=== PATIENT | female | born 1990 | race Caucasian/White ===

== ENCOUNTER 2020-03-12 06:53 | Outpatient (NON) | payer OTHER, SELFPAY ==
[2020-03-12 21:01] LABS: SARS-CoV-2 RNA PCR Negative
== END 2020-03-12 06:54 ==
PROVIDERS: PCP Family Medicine; Visit Provider Family Medicine
DX: R09.89 Other specified symptoms and signs involving the circulatory and respiratory systems (principal); Z20.828 Contact with and (suspected) exposure to other viral communicable diseases
CPT/HCPCS: 87635; C9803; U0003

== ENCOUNTER 2022-06-01 08:18 | Outpatient (RCR) | payer OTHER, SELFPAY ==
[2022-05-30 18:28] LABS: Beta HCG Quantitative 33.54 mIU/ML
[2022-05-31] MEDS: RHO(D) IMMUNE GLOBULIN 300 MCG/2 ML SYRINGE IM (12:38)
== END 2022-08-28 23:59 | disposition home or self-care (01) ==
LOC: ANHLAB 08:18
PROVIDERS: PCP Family Medicine; Visit Provider Advanced Practice Midwife
DX: O20.0 Threatened abortion (principal); Z29.13 Encounter for prophylactic Rho(D) immune globulin; O36.0130 Maternal care for anti-D [Rh] antibodies, third trimester, not applicable or unspecified; Z3A.00 Weeks of gestation of pregnancy not specified
CPT/HCPCS: 36415; 84702; 85461; 86850; 86900; 86901; 90384; 96372; J2790

== ENCOUNTER 2022-08-02 15:17 | Outpatient (CLI) | payer OTHER, SELFPAY ==
[2022-08-02 16:15] LABS: Beta HCG Quantitative 5.58 mIU/ML
[2022-08-02 17:07] LABS: Hemoglobin A1C 5.7 % (<5.7)
[2022-08-05 04:28] LABS: Progesterone 0.5 ng/mL (***)
== END 2022-08-02 15:18 | disposition home or self-care (01) ==
PROVIDERS: PCP Family Medicine; Visit Provider Advanced Practice Midwife
DX: Z32.01 Encounter for pregnancy test, result positive (principal)
CPT/HCPCS: 36415; 83036; 84144; 84702

== ENCOUNTER 2022-08-04 12:16 | Outpatient (CLI) | payer OTHER, SELFPAY ==
[2022-08-04 13:34] LABS: Beta HCG Quantitative < 2.39 mIU/ML
== END 2022-08-04 12:17 | disposition home or self-care (01) ==
PROVIDERS: PCP Nurse Practitioner Family; Visit Provider Advanced Practice Midwife
DX: O02.1 Missed abortion (principal)
CPT/HCPCS: 36415; 84702

== ENCOUNTER 2023-05-25 17:40 | Outpatient (CLI) | payer OTHER, SELFPAY ==
[2023-05-25 18:29] LABS: Beta HCG Quantitative 49.24 mIU/ML
== END 2023-05-25 17:41 | disposition home or self-care (01) ==
LOC: ANHLAB 17:43
PROVIDERS: PCP Nurse Practitioner Family; Visit Provider Advanced Practice Midwife
DX: Z32.01 Encounter for pregnancy test, result positive (principal)
CPT/HCPCS: 36415; 84702

== ENCOUNTER 2023-05-27 12:18 | Outpatient (CLI) | payer OTHER, SELFPAY ==
[2023-05-27 13:22] LABS: Beta HCG Quantitative 137.08 mIU/ML
== END 2023-05-27 12:19 | disposition home or self-care (01) ==
LOC: ANHLAB 12:19
PROVIDERS: PCP Nurse Practitioner Family; Visit Provider Advanced Practice Midwife
DX: Z32.01 Encounter for pregnancy test, result positive (principal)
CPT/HCPCS: 36415; 84702

== ENCOUNTER 2023-05-29 11:14 | Outpatient (RCR) | payer OTHER, SELFPAY ==
[2023-05-29] MEDS: RHO(D) IMMUNE GLOBULIN 300 MCG/2 ML SYRINGE IM (14:51)
== END 2023-08-27 23:59 | disposition home or self-care (01) ==
LOC: ANHLAB 11:14
PROVIDERS: PCP Nurse Practitioner Family; Visit Provider Advanced Practice Midwife
DX: Z29.13 Encounter for prophylactic Rho(D) immune globulin (principal); O20.0 Threatened abortion; O36.0190 Maternal care for anti-D [Rh] antibodies, unspecified trimester, not applicable or unspecified; Z3A.00 Weeks of gestation of pregnancy not specified
CPT/HCPCS: 36415; 84702; 85461; 86850; 86900; 86901; 90384; 96372; J2790

== ENCOUNTER 2023-12-07 12:53 | Outpatient (CLI) | payer OTHER, SELFPAY ==
[2023-12-07 13:25] VITALS: BP 140/82; PULSE 96
[2023-12-07 13:30] VITALS: BP 138/80; PULSE 92
[2023-12-07 13:37] LABS: Basophils Percent Auto 0.2 % (0.2-1.2); Eosinophils Percent Auto 0.5 % (0-4.4); Hematocrit 33.5 % (37.0-47.0); Hemoglobin 10.8 g/dL (12.0-15.0); Immature Granulocyte Absolute 0.02 K/mm3 (0.00-0.031); Immature Granulocyte Percent A 0.3 % (0-0.5); Lymphocytes Percent Auto 18.4 % (18.3-44.2); Mean Corpuscular HGB Conc 32.2 g/dl (32-36); Mean Corpuscular Hemoglobin 26.9 pg (26-34); Mean Corpuscular Volume 83.3 fl (80-100); Mean Platelet Volume 8.5 fl (7.4-10.4); Monocytes Absolute Auto 0.3 K/mm3 (0.1-0.6); Monocytes Percent Auto 5.7 % (2.6-8.5); Neutrophils Absolute Auto 4.5 K/mm3 (1.3-6.7); Neutrophils Percent Auto 74.9 % (45.5-73.1); Platelet Count Result 297 k/mm3 (150-375); Red Blood Count 4.02 M/mm3 (4.2-5.4); Red Cell Distribution Width 14.2 % (11.5-14.5)
[2023-12-07 13:39] LABS: Add Urine Microscopic? NO; Appearance Urine Clear (Clear); Bilirubin Urine Negative (Negative); Blood Urine Negative (Negative); Color Urine Yellow (Yellow); Glucose Urine UA Negative (Negative); Ketones Urine 3+ mg/dL (Negative); Leukocyte Esterase Ur Negative LEU/UL (Negative); Nitrate Urine Negative (Negative); Protein Urine Negative (Negative); Specific Grav Ur 1.023 (1.001-1.035); Urobilinogen Urine 0.2 mg/dL (<2.0); pH Urine 6.5 (5.0-9.0)
[2023-12-07 13:41] VITALS: TEMP 36.7
[2023-12-07 13:45] VITALS: BP 135/77; PULSE 90
[2023-12-07 13:46] LABS: Creatinine Urine 68.6 mg/dL; Total Protein Urine Random 7 mg/dL
[2023-12-07 13:47] LABS: Alanine Aminotransferase 21 U/L (6-35); Albumin Level 3.6 g/dL (3.5-5.1); Alkaline Phosphatase 102 U/L (38-126); Anion Gap 8 mmol/L (4-12); Aspartate Amino Transferase 25 U/L (14-36); Bilirubin,Total 0.2 mg/dL (0.2-1.3); Blood Urea Nitrogen 12 mg/dL (7-17); Calcium 8.7 mg/dL (8.4-10.2); Carbon Dioxide 26 mmol/L (22-30); Chloride 100 mmol/L (98-107); Estimated Glomerular Filt Rate > 60; Glucose 92 mg/dL (65-110); Potassium 3.2 mmol/L (3.4-5.0); Sodium 134 mmol/L (137-145); Uric Acid 3.2 mg/dL (2.5-7.5)
[2023-12-07 14:00] VITALS: BP 130/77; PULSE 89
== END 2023-12-07 14:15 | disposition home or self-care (01) ==
LOC: ANHOBOP 12:56 → ANHOBPP 12:57
PROVIDERS: PCP Nurse Practitioner Family; Visit Provider Obstetrics & Gynecology
DX: O13.9 Gestational [pregnancy-induced] hypertension without significant proteinuria, unspecified trimester (principal); Z3A.00 Weeks of gestation of pregnancy not specified
CPT/HCPCS: 36415; 59025; 80053; 81003; 82570; 84156; 84550; 85025; 99199

== ENCOUNTER 2023-12-28 08:29 | Outpatient (CLI) | payer OTHER, SELFPAY ==
--- NOTE | 2023-12-28 09:10 | PC.NURSE ---
Dr. Cruz informed of this 33 wk gestation pt's arrival with c/o leakage of fluid this morning; ROM plus was negative; NST reactive. OK to discharge to home.
[2023-12-28 09:15] VITALS: BP 124/81; PULSE 95
[2023-12-28 09:43] LABS: OBXCEM ROM Plus Negative
== END 2023-12-28 09:19 | disposition home or self-care (01) ==
LOC: ANHOBOP 09:12 → ANHOBPP 09:13
PROVIDERS: Obstetrics & Gynecology; PCP Nurse Practitioner Family; Visit Provider Obstetrics & Gynecology
DX: Z34.90 Encounter for supervision of normal pregnancy, unspecified, unspecified trimester (principal); Z3A.00 Weeks of gestation of pregnancy not specified
CPT/HCPCS: 59025; 84112; 99199

== ENCOUNTER 2024-01-11 15:46 | Inpatient (IN) | payer OTHER, SELFPAY ==
[2024-01-11] VITALS (22 sets, daily range): BP systolic 125–139; BP diastolic 82–95; PULSE 79–105; TEMP 36.2–36.5; BMI 33.5
[2024-01-11 16:40] LABS: Basophils Percent Auto 0.2 % (0.2-1.2); Eosinophils Percent Auto 0.5 % (0-4.4); Hematocrit 36.3 % (37.0-47.0); Immature Granulocyte Absolute 0.01 K/mm3 (0.00-0.031); Immature Granulocyte Percent A 0.2 % (0-0.5); Lymphocytes Absolute Auto 1.09 K/mm3 (0.9-3.2); Lymphocytes Percent Auto 18.1 % (18.3-44.2); Mean Corpuscular HGB Conc 33.1 g/dl (32-36); Mean Corpuscular Hemoglobin 27.3 pg (26-34); Mean Corpuscular Volume 82.7 fl (80-100); Monocytes Absolute Auto 0.4 K/mm3 (0.1-0.6); Monocytes Percent Auto 7.1 % (2.6-8.5); Neutrophils Absolute Auto 4.5 K/mm3 (1.3-6.7); Neutrophils Percent Auto 73.9 % (45.5-73.1); Platelet Count Result 277 k/mm3 (150-375); Red Blood Count 4.39 M/mm3 (4.2-5.4); Red Cell Distribution Width 15.6 % (11.5-14.5)
[2024-01-11] MEDS: AMPICILLIN 2 GM/NS 100 ML 2 GM/100 ML BAG IVPB (16:49)
[2024-01-11] MEDS: LACTATED RINGERS 1,000 ML 125 ML IV CONT (16:50)
[2024-01-11] MEDS: miSOPROStol 25 MCG TABLET 50 MCG BUCCAL ×2 (16:54→20:50)
--- NOTE | 2024-01-11 16:58 | LDADM ---
This patient, Joe Goodwin, was admitted to Labor/Delivery/Recovery 107 on 01/11/24 at 15:46. Plans for labor, pain management and were discussed with patient. Patient/family oriented to hospital policies and general routines including ID bracelet, bed and alarms, visiting hours, pain management, procedures, bathroom and other care routines, personal items, smoking policy, room service/diet and guest tray routines, security routines, and visiting hours. Patient/Family are encouraged to report perceived risks to care and to ask questions if they do not understand what they are told or what they should do. See OBIX for further documentation.
[2024-01-11 17:14] LABS: Alanine Aminotransferase 23 U/L (6-35); Albumin Level 4.1 g/dL (3.5-5.1); Alkaline Phosphatase 113 U/L (38-126); Anion Gap 8 mmol/L (4-12); Aspartate Amino Transferase 27 U/L (14-36); Bilirubin,Total 0.3 mg/dL (0.2-1.3); Blood Urea Nitrogen 16 mg/dL (7-17); Calcium 9.4 mg/dL (8.4-10.2); Carbon Dioxide 24 mmol/L (22-30); Chloride 98 mmol/L (98-107); Estimated CRCL calculation 253 ml/min; Estimated Glomerular Filt Rate > 60; Glucose 96 mg/dL (65-110); Sodium 130 mmol/L (137-145)
[2024-01-11 17:19] LABS: Potassium 3.6 mmol/L (3.4-5.0)
[2024-01-11 17:29] LABS: Rapid Plasma Reagin Non-Reactive (NonReactive)
[2024-01-11 18:27] LABS: HIV 1/2 Ab P24 Ag Result Negative (Negative)
[2024-01-11] MEDS: AMPICILLIN 1 GM/NS 50 ML 1 GM/50 ML BAG IVPB (20:50)
[2024-01-11 21:08] LABS: Glucose Point of Care 109 mg/dl (65-105)
[2024-01-12] VITALS (129 sets, daily range): BP systolic 93–150; BP diastolic 56–93; PULSE 69–107; RESP 16–18; TEMP 36.2–37.1; O2SAT 95–100
[2024-01-12] MEDS: miSOPROStol 25 MCG TABLET 50 MCG BUCCAL ×2 (00:45→04:44)
[2024-01-12] MEDS: AMPICILLIN 1 GM/NS 50 ML 1 GM/50 ML BAG IVPB ×3 (00:45→08:59)
[2024-01-12 00:48] LABS: Glucose Point of Care 76 mg/dl (65-105)
[2024-01-12 04:50] LABS: Glucose Point of Care 81 mg/dl (65-105)
--- NOTE | 2024-01-12 07:33 | PM.IMHP ---
H&P: HPI History of Present Illness Date/Time: 01/12/24 07:34 Chief Complaint: chronic HTN, medical induction of labor Narrative: Patient is a 33 year old at 37w1d who presents for medical induction of labor indicated for chronic HTN on procardia XL. Her blood pressures have been well controlled. testing has been reactive and reassuring. She denies headaches, vision changes, chest pain, dyspnea, RUQ pain or epigastric pain. Her has also been complicated by GDMA1, with good glycemic control. She reports good movement. No contractions, LOF, VB. Review of Systems Review of Systems: All systems reviewed & are unremarkable except as noted in HPI and below PMFSH Family History Family History Mother Family history of thalassemia Family history of migraine headaches Father Family history of migraine headaches Social History Social History Smoking status: Never smoker Second hand tobacco smoke exposure: No Alcohol intake: never Substance use: never Do You Feel Safe in your Home?: Yes Lack of Transportation: No Lack of Food: Never True Current Housing: I Have Housing Concerned About Future Housing: No Difficulty Paying Gas/Electric Bills: No Difficulty Paying for Meds: No Currently Unemployed: No Education: Trade/Vocational Certificate Difficulty w/ Childcare or Family Care: No Spiritual care concerns: No Meds Home Medications and Allergies Home Medications Medication Instructions Recorded Confirmed Type escitalopram oxalate 20 mg tablet 20 mg PO DAILY 06/26/19 01/11/24 History (Lexapro) aspirin 81 mg capsule 81 mg PO DAILY 12/07/23 01/11/24 History ferrous sulfate 27 mg iron tablet 27 mg PO DAILY 12/07/23 01/11/24 History nifedipine 30 mg tablet,extended 30 mg PO DAILY 12/07/23 01/11/24 History release 24 hr prenat.vits,malaika,[id number] 1 tablet PO DAILY 01/06/24 01/11/24 History doxylamine succinate 25 mg tablet 25 mg PO HS PRN Sleep 01/11/24 01/11/24 History (Unisom (doxylamine)) Allergies Allergy/AdvReac Type Severity Reaction Status Date / Time oseltamivir [From Tamiflu] Allergy Mild Vomiting Verified 01/06/24 13:35 sertraline [From Zoloft] Allergy Mild Irritable Verified 01/06/24 13:35 Vital Signs Vital Signs - 24 hr 01/11/24 16:46 01/11/24 17:01 01/11/24 17:16 Temperature Pulse Rate 102 H 93 92 Blood Pressure 137/90 135/89 134/87 01/11/24 17:00 01/11/24 17:31 01/11/24 17:46 Temperature 97.2 F L Pulse Rate 92 85 Blood Pressure 135/94 H 136/95 H 01/11/24 18:01 01/11/24 19:28 01/11/24 19:31 Temperature Pulse Rate 86 90 93 Blood Pressure 137/94 H 134/86 135/84 01/11/24 19:46 01/11/24 20:01 01/11/24 20:16 Temperature Pulse Rate 93 105 H 100 Blood Pressure 132/85 135/85 134/90 01/11/24 20:31 01/11/24 21:01 01/11/24 21:16 Temperature Pulse Rate 101 H 94 103 H Blood Pressure 133/87 139/86 125/88 01/11/24 21:00 01/11/24 21:31 01/11/24 21:46 Temperature 97.7 F Pulse Rate 92 95 Blood Pressure 136/86 138/87 01/11/24 22:06 01/11/24 22:31 01/11/24 23:01 Temperature Pulse Rate 94 85 83 Blood Pressure 132/85 139/91 H 137/82 01/11/24 23:31 01/12/24 00:01 01/12/24 00:31 Temperature Pulse Rate 79 77 76 Blood Pressure 127/82 134/89 131/87 01/12/24 01:01 01/12/24 01:31 01/12/24 01:00 Temperature 97.4 F L Pulse Rate 91 80 Blood Pressure 140/90 139/88 01/12/24 02:01 01/12/24 02:31 01/12/24 03:01 Temperature Pulse Rate 81 88 89 Blood Pressure 135/82 150/91 H 126/68 01/12/24 03:31 01/12/24 04:01 01/12/24 04:31 Temperature Pulse Rate 79 86 85 Blood Pressure 116/65 115/65 123/69 01/12/24 04:45 01/12/24 05:43 01/12/24 06:01 Temperature 97.1 F L Pulse Rate 77 76 Blood Pressure 123/78 123/80 01/12/24 06:31 01/12/24 07:01 Temp
[2024-01-12] MEDS: NIFEdipine 30 MG TAB.ER.24 PO (09:00)
[2024-01-12] MEDS: ESCITALOPRAM OXALATE 10 MG TABLET 20 MG PO (09:00)
[2024-01-12 09:10] LABS: Glucose Point of Care 102 mg/dl (65-105)
[2024-01-12] MEDS: LACTATED RINGERS 1,000 ML 125 ML IV CONT (09:24)
[2024-01-12] MEDS: OXYTOCIN 30 UNITS/NS 500 ML 30 UNITS/500 ML BAG IV CONT (09:35)
--- NOTE | 2024-01-12 11:29 | WPDANESEPPF ---
Anes - Initial Pre Proc Eval Date/Time: 01/12/24 11:29 Surgeon: Lobo Dunham MD Pre Op Diagnosis: Induction of Labor Patient Data Age: 33 Gender: F Height: 1.7 m Weight: 97.2 kg Last Vital Signs Temp 36.8 C 01/12/24 09:30 Pulse 74 01/12/24 11:16 BP 128/76 01/12/24 11:16 Pulse Ox 99 01/12/24 11:27 Allergies Allergy/AdvReac Type Severity Reaction Status Date / Time oseltamivir [From Tamiflu] Allergy Mild Vomiting Verified 01/06/24 13:35 sertraline [From Zoloft] Allergy Mild Irritable Verified 01/06/24 13:35 Home Medications Medication Instructions Recorded Confirmed Type escitalopram oxalate 20 mg tablet 20 mg PO DAILY 06/26/19 01/11/24 History (Lexapro) aspirin 81 mg capsule 81 mg PO DAILY 12/07/23 01/11/24 History ferrous sulfate 27 mg iron tablet 27 mg PO DAILY 12/07/23 01/11/24 History nifedipine 30 mg tablet,extended 30 mg PO DAILY 12/07/23 01/11/24 History release 24 hr prenat.vits,malaika,djb-[id number]-agwjy 1 tablet PO DAILY 01/06/24 01/11/24 History doxylamine succinate 25 mg tablet 25 mg PO HS PRN Sleep 01/11/24 01/11/24 History (Unisom (doxylamine)) Laboratory Tests 01/11/24 01/11/24 01/12/24 16:31 21:06 00:43 WBC 6.0 K/mm3 (4.5-10.0) RBC 4.39 M/mm3 (4.2-5.4) Hgb 12.0 g/dL (12.0-15.0) Hct 36.3 L % (37.0-47.0) MCV 82.7 fl (80-100) MCH 27.3 pg (26-34) MCHC 33.1 g/dl (32-36) RDW 15.6 H % (11.5-14.5) Plt Count 277 k/mm3 (150-375) MPV 9.0 fl (7.4-10.4) Immature Gran % (Auto) 0.2 % (0-0.5) Neut % (Auto) 73.9 H % (45.5-73.1) Lymph % (Auto) 18.1 L % (18.3-44.2) [place] % (Auto) 7.1 % (2.6-8.5) Eos % (Auto) 0.5 % (0-4.4) Baso % (Auto) 0.2 % (0.2-1.2) Lymph # (Auto) 1.09 K/mm3 (0.9-3.2) [place] # (Auto) 0.4 K/mm3 (0.1-0.6) Eos # (Auto) 0.0 K/mm3 (0-0.3) Baso # (Auto) 0.0 K/mm3 (0.0-0.1) Abs Immat Gran (auto) 0.01 K/mm3 (0.00-0.031) Absolute Neuts (auto) 4.5 K/mm3 (1.3-6.7) Absolute Nucleated RBC 0.000 K/mm3 (0.0-0.012) Nucleated RBC % 0.0 % (0.0-0.2) Sodium 130 L mmol/L (137-145) Potassium 3.6 mmol/L (3.4-5.0) Chloride 98 mmol/L (98-107) Carbon Dioxide 24 mmol/L (22-30) Anion Gap 8 mmol/L (4-12) BUN 16 mg/dL (7-17) Creatinine 0.30 L mg/dL (0.7-1.0) Estim Creat Clear Calc 253 ml/min Estimated GFR > 60 (59 - ) Glucose 96 mg/dL (65-110) POC Capillary Glucose 109 H mg/dl 76 mg/dl (65-105) (65-105) Calcium 9.4 mg/dL (8.4-10.2) Total Bilirubin 0.3 mg/dL (0.2-1.3) AST 27 U/L (14-36) ALT 23 U/L (6-35) Alkaline Phosphatase 113 U/L (38-126) Total Protein 8.0 g/dL (6.3-8.2) Albumin 4.1 g/dL (3.5-5.1) RPR Non-reactive (NonReactive) HIV 1&2 Ab/P24 Ag 4thGn Negative (Negative) Blood Type O Negative Antibody Screen Negative 01/12/24 01/12/24 04:42 09:06 WBC RBC Hgb Hct MCV MCH MCHC RDW Plt Count MPV Immature Gran % (Auto) Neut % (Auto) Lymph % (Auto) [place] % (Auto) Eos % (Auto) Baso % (Auto) Lymph # (Auto) [place] # (Auto) Eos # (Auto) Baso # (Auto) Abs Immat Gran (auto) Absolute Neuts (auto) Absolute Nucleated RBC Nucleated RBC % Sodium Potassium Chloride Carbon Dioxide Anion Gap BUN Creatinine Estim Creat Clear Calc Estimated GFR Glucose
[2024-01-12 12:17] LABS: Glucose Point of Care 72 mg/dl (65-105)
--- NOTE | 2024-01-12 13:16 | PM.OBPRVD ---
OB - Vaginal Delivery Note Procedure Delivery date: 01/12/24 Events: Chronic Hypertension and Gestational Diabetes Induction method: Per Misoprostol Protocol Delivery augmentation: Rupture of Membranes and Pitocin Delivery monitor: External FHT and Internal Uterine Route of delivery: Episiotomy description: None Laceration Description: Periurethral and Perineal - 2nd Degree Delivery repair: vicryl Specimen: No Quantitative Blood Loss (ml): 200 Anesthesia type: Epidural Disposition: Floor Complications: No immediate complications Narrative: See H&P and notes for details on patient's admission and labor. She progressed to complete cervical dilation and at the appropriate time began pushing. With adequate expulsive efforts by the mother, the baby's head was delivered without difficulty. Nuchal cord was present x1 and was easily reduced. The baby's right shoulder was anterior and delivered under the pubic symphysis without difficulty. The posterior shoulder and the rest of the baby delivered without difficulty. The umbilical cord was doubly clamped and cut after 30 seconds of delayed cord clamping. Care of the was then assumed by the nursing staff. Baby Date of : 01/12/24 Gestational Age by Date: 37 gender: Male Weight (pounds): 6 Weight (ounces): 6 presentation: vertex position: Left Occiput Anterior Placenta delivery description: Expressed Cord Vessel Description: 3 Vessels, Nuchal Cord, Reduced and Delayed Cord Clamping score one minute: 6 score five minutes: 8
[2024-01-12] MEDS: OXYTOCIN 30 UNITS/NS 500 ML 30 UNITS/500 ML BAG 125 UNITS IV CONT (13:25)
[2024-01-12] MEDS: WITCH HAZEL 40 PADS 1 PAD TOPICAL (15:54)
[2024-01-12] MEDS: BENZOCAINE 20% AER SPR (*SP) 56 GM CAN 1 SPRAY TOPICAL (15:54)
[2024-01-12] MEDS: IBUPROFEN 600 MG TABLET PO (17:08)
--- NOTE | 2024-01-12 17:40 | OBPPTRN ---
Patient transferred to post room #291 via (wheelchair ). Support person present. Oriented to unit, room, information board, rooming in, admission packet and security measures. Patient verbalizes understanding.
--- NOTE | 2024-01-12 19:07 | PC.NURSE ---
0. Introductions were made, then consulted with patient to assess needs related to . Mother led the conversation with her?plans to feed?her infant and the?experience so far. Encouraged understanding of the benefits of skin to skin (demonstrating unwrapping infant and placing upright on her chest), stimulating with massage touch, changing positions to encourage wakefulness, how to watch for early feeding cues, responsive feeding, feeding on demand (aiming for 8-12 times in 24 hours, about every 2-3 hours), milk production, building/maintaining a milk supply, duration of feeding, signs of adequate intake/output and how to record on the feeding sheet. Mother works well with her with encouragement and education. Reviewed positioning and ear, shoulder, hip alignment, supporting the breast to facilitate a deep latch, asymmetrical latch (off-center), leading with the chin with a big, open, wide gape and body close to mother. Many attempts made to latch to breast in football and cross cradle hold. Moms nipples are a little flat and infant has a hard time maintaining a latch. Nipple shield provided to mother due to flat nipples. Reviewed good handwashing, cleaning the nipple shield and the appropriate way to apply and use as a tool. Discussed with mom the nipple shield precautions, possible complications associated with the risks and benefits. Reviewed practicing with a nipple shield, then without and how to protect the milk supply and production. Mom and baby guide referred to as a resource for outpatient services, community resources and when to call a provider. Mom voiced understanding of the importance of hand expression, nipple stimulation and initiating a pumping schedule if continues to nurse with the shield. Infant latched optimally to the left breast in football position with the nipple shield. Education given to the mother of how to visualize the suckling (with good rocking jaw motion), swallows (dropping of the lower jaw) and how to listen for drinking at the breast (the ka sound). was able/unable to maintain latch without pain to mother protecting the nipple with optimal positioning and latching. Reviewed comfort measures of healing with a warm, wet washcloth to rinse breast, then leave open to air-dry, good handwashing when or touching the breast/nipples to prevent infection. Mother voiced understanding of skin to skin, stimulating with massage touch, responsive feedings, hand expressed colostrum, talking to to encourage if it has been 2 -2.5 hours since the start of the last , to call if does not latch, or if there is discomfort with . Resources used for education were facilitated with the visual educational handouts & mom and baby guide. Inpatient resources provided with feeding sheet,& name written on the communication board. Parents voiced understanding of information, demonstrated learning and will call if there is a request for assistance. Reported to the Primary RN.
[2024-01-13 00:17] VITALS: BP 122/79
[2024-01-13 03:30] VITALS: BP 126/83; PULSE 87; RESP 12; TEMP 36.9; O2SAT 100
--- NOTE | 2024-01-13 04:45 | PM.OBPNVD ---
OB - PN: Subj Subjective Date/time seen: 01/13/24 04:45 Patient comments: no complaints, pain well controlled and tolerating diet OB - PN: Obj Data Labs 01/11/24 16:31 01/11/24 16:31 Labs: Laboratory Results - last 24 hr 01/12/24 01/12/24 01/12/24 04:42 09:06 12:15 POC Capillary Glucose 81 102 72 OB - PN A/P Plan day: 2 Plan: routine care and discharge home Time Spent With Patient Time: Total time spent is greater than 50% in coordination of care (as documented) at patient's floor/unit and/or counseling patient: Exam Const: General: comfortable and no acute distress Resp: Effort & Inspection: normal respiratory effort Auscultation: no rales, no rhonchi and no wheezes Cardio: Rate: regular rate Heart sounds: no click, no murmurs and no rubs GI: GI Palp: Yes Soft to palpation and No Tenderness to palpation present (GI) Auscultation: normal bowel sounds Extrem: General: normal to inspection, no pedal edema and no calf tenderness
[2024-01-13 05:15] LABS: Hematocrit 33.2 % (37.0-47.0); Hemoglobin 10.9 g/dL (12.0-15.0)
[2024-01-13 06:45] VITALS: BP 120/77; PULSE 85; RESP 16; TEMP 36.9; O2SAT 100
[2024-01-13] MEDS: ACETAMINOPHEN 325 MG TABLET 650 MG PO ×2 (06:51→16:40)
--- NOTE | 2024-01-13 07:38 | WPDANLDPN2 ---
Anes-Prog Note L&D Date/Time: 01/13/24 07:38 Comfortable throughout: labor and delivery Neuraxial method: epidural Epidural/Spinal procedure site: clean & non-tender Neuro status: Neuro function grossly intact. Cardiovascular status: normal Respiratory status: normal Airway patency: baseline Mental status: baseline Post-Op hydration status: normal Vital Signs: Last Vital Signs Temp 36.9 C 01/13/24 03:30 Pulse 87 01/13/24 03:30 Resp 12 01/13/24 03:30 BP 126/83 01/13/24 03:30 Pulse Ox 100 01/13/24 03:30 O2 Del Method Room Air 01/12/24 16:30 Pain score (VAS): 0/10 I/O: Intake & Output 01/12/24 01/12/24 01/13/24 15:59 23:59 07:59 Intake Total 550 Output Total 200 Balance 350 Post-procedural complaints: none Patient feedback: Patient satisfied with anesthetic care.
[2024-01-13] MEDS: NIFEdipine 30 MG TAB.ER.24 PO (08:46)
[2024-01-13] MEDS: DOCUSATE SODIUM 100 MG CAPSULE PO ×2 (08:46→16:40)
[2024-01-13] MEDS: MULTIVIT/MIN/PREN/FOL AC/IRON TABLET 1 TAB PO (08:47)
[2024-01-13] MEDS: ESCITALOPRAM OXALATE 10 MG TABLET 20 MG PO (08:47)
--- NOTE | 2024-01-13 10:10 | PC.NURSE ---
Consulted with patient to assess needs related to . Discussed with mother her successes, concerns and any questions she has. We reviewed working with the , supporting breast, protecting her nipples with an optimal deep latch, good positioning. Encouraged understanding the benefits of skin to skin, responding to feeding cues, frequencies of feeding 8-12 times in 24 hours (approximately 2-3 hours), duration of feedings, milk production, intake/output feeding sheet and signs of adequate intake encouraging swallowing at the breast. Reviewed positioning and alignment, supporting breast, off-centered (asymmetrical latch) and leading with the chin with big, open, wide gape. Infant latched optimally to the [right] breast in [football] position with the nipple shield. Education given to the mother of how to visualize the suckling (with good rocking jaw motion) swallows (dropping of the lower jaw) and how to listen for drinking at the breast (the ka sound). The infant was [able] to maintain latch without discomfort to mother. Infant had several swallows while he was feeding and did need some stimulation to stay awake and suckling. Drops of colostrum noted inside the shield after feeding. released the breast and was sleeping with relaxed hands. Mother is deciding whether or not she wants to supplement with formula after the feeding, since there is no doctor order it is up to her. She did choose to bottle feed through the night. We discussed sleepy in the first 24 hours, and small drops of colostrum until her milk comes in. Nipple care reviewed with optimal latch, good positioning. Mom has her Spectra pump in the room and she is encouraged to pump any time that baby does not breastfeed. She will call out for assistance using the pump when she is ready. Resources used to facilitate learning were used from the [mom and baby guide] and name/number written on whiteboard. Mother voiced understanding of the education shared, to call for assistance if the does not latch or if there is discomfort with . Reported to the Primary RN.
[2024-01-13 11:10] VITALS: BP 125/77
[2024-01-13] MEDS: RHO(D) IMMUNE GLOBULIN 300 MCG/2 ML SYRINGE IM (11:36)
[2024-01-13 16:35] VITALS: BP 126/81
[2024-01-13 19:00] VITALS: BP 128/83; PULSE 92; RESP 18; TEMP 36.9
[2024-01-14 00:10] VITALS: BP 125/85; PULSE 88
[2024-01-14] MEDS: IBUPROFEN 600 MG TABLET PO (03:35)
[2024-01-14 04:00] VITALS: BP 131/82; PULSE 93
--- NOTE | 2024-01-14 07:53 | PM.OBPNVD ---
OB - PN: Subj Subjective Date/time seen: 01/14/24 07:53 Patient comments: no complaints, pain well controlled and tolerating diet OB - PN: Obj Data Labs 01/13/24 03:42 01/11/24 16:31 OB - PN A/P Plan day: 2 Plan: routine care and discharge home Time Spent With Patient Time: Total time spent is greater than 50% in coordination of care (as documented) at patient's floor/unit and/or counseling patient: Exam Const: General: comfortable and no acute distress Resp: Effort & Inspection: normal respiratory effort Auscultation: no rales, no rhonchi and no wheezes Cardio: Rate: regular rate Heart sounds: no click, no murmurs and no rubs GI: GI Palp: Yes Soft to palpation and No Tenderness to palpation present (GI) Auscultation: normal bowel sounds Extrem: General: normal to inspection, no pedal edema and no calf tenderness
--- NOTE | 2024-01-14 07:54 | PM.OBDSVD ---
DS: Admitting Diagnosis Discharge Date January 14, 2024 Admitting Diagnosis term DS: Discharge Diagnosis Discharge Diagnosis (1) Post term , delivered: Code(s): O48.0 - Post-term Status: Acute OB - DS: Summary OB Procedures : None OB Procedures Intrapartum: Spontaneous Vag Delivery OB Procedures: : None Peripartum Data Laceration Description: Periurethral and Perineal - 2nd Degree Episiotomy description: None Time Spent with Patient Time attestation: Total time spent providing and/or coordinating discharge services: Discharge Plan Discharge Discharging Clinician: Derick Cruz Patient Disposition: Home, Self-Care Activity: pelvic rest Diet: regular Patient Instructions: Antibiotic Form Stand Alone Forms: General Discharge Information Follow-up/Referrals: Derick Cruz MD [Physician] - Discharge Medications: No Action escitalopram oxalate [Lexapro] 20 mg tablet 20 mg PO DAILY nifedipine 30 mg tablet extended release 24hr 30 mg PO DAILY ferrous sulfate 27 mg iron Tablet 27 mg PO DAILY aspirin 81 mg Capsule 81 mg PO DAILY #2 Tablet 1 tablet PO DAILY Unisom (doxylamine) 25 mg Tablet 25 mg PO HS PRN (Reason: Sleep) Date of admission: 01/11/24 15:46 Primary Care Provider: Calvin,Neris Guillen Admitting Provider: Lobo Dunham Attending physician on admission: Lobo Dunham Condition: Stable
[2024-01-14] MEDS: NIFEdipine 30 MG TAB.ER.24 PO (07:59)
[2024-01-14] MEDS: MULTIVIT/MIN/PREN/FOL AC/IRON TABLET 1 TAB PO (07:59)
[2024-01-14] MEDS: DOCUSATE SODIUM 100 MG CAPSULE PO (07:59)
[2024-01-14] MEDS: ACETAMINOPHEN 325 MG TABLET 650 MG PO (07:59)
[2024-01-14] MEDS: ESCITALOPRAM OXALATE 10 MG TABLET 20 MG PO (08:02)
[2024-01-14 08:20] VITALS: BP 123/79; PULSE 75; RESP 18; TEMP 36.6; O2SAT 100
[2024-01-15 09:31] VITALS: BP 135/84; PULSE 72; RESP 18; TEMP 36.9; O2SAT 100
== END 2024-01-14 12:40 | disposition home or self-care (01) | DRG 807 ==
LOC: ANHOB2 01-14 08:42 → ANHLDR 01-16 08:13 → ANHOB2 01-16 08:13
PROVIDERS: Admitting Provider Obstetrics & Gynecology; PCP Nurse Practitioner Family; Visit Provider Obstetrics & Gynecology
DX: O10.92 Unspecified pre-existing hypertension complicating childbirth (principal); Z37.0 Single live birth; O24.420 Gestational diabetes mellitus in childbirth, diet controlled; O70.1 Second degree perineal laceration during delivery; O69.81X0 Labor and delivery complicated by cord around neck, without compression, not applicable or unspecified; Z3A.37 37 weeks gestation of pregnancy
CPT/HCPCS: 36415; 80053; 82948; 85014; 85018; 85025; 85461; 86592; 86703; 86850; 86900; 86901; 90384; A9270; G0432; J0290; J2590; J2790; J2795; J7120

== ENCOUNTER 2024-06-21 08:54 | Outpatient (CLI) | payer OTHER, SELFPAY | END 2024-06-21 08:55 | disposition home or self-care (01) | LOC: GOSHIMG 08:55 | PROVIDERS: PCP Internal Medicine; Visit Provider Internal Medicine | DX: K80.20 Calculus of gallbladder without cholecystitis without obstruction (principal); K76.89 Other specified diseases of liver | CPT/HCPCS: 76705 ==

== ENCOUNTER 2024-08-03 11:58 | Outpatient (CLI) | payer OTHER, SELFPAY ==
--- OUTSIDE RECORDS SUMMARY | 2024-08-03 12:01 | XMS_ITS | Encounter Summary ---
[facility] Organization [facility] Address [address] [place] [address] Care Team Providers Care Grocery Cashier Name Role Phone Unavailable Primary Care Provider Unavailabl e Reason for Referral * Eval and Treat (Routine) - Open Specialty Diagnoses / Procedures Referred By Contac t Referred To Contact Diagnoses Dyspepsia Gallstones Procedures HI OFFICE/OUTPATIENT ESTABLISHED MOD MDM 30 MIN HI OFFICE/OUTPATIENT NEW MODERATE MDM 45 MINUTES Araseli Black MD [facility] [place] [place] [address] Phone: tel: fax: Referral ID Status Reason Start Date Expiration Date Visits Re quested Visits Authorized [id number] Open 06/28/2024 06/28/2025 1 1 OFFICE MANAGER Encounter Details Date Type Department Care Team (Late st Contact Info) Description 06/28/2024 Results Follow-Up [facility] at Work [employer] [place] [address] [employer] [facility] [place] [address] Araseli Black MD [address] [place] [address] [employer] Social History Tobacco Use Types Packs/Day Years Used Date Smoking Tobacco: Never Smokeless Tobacco: Never Alcohol Use Standard Drinks/Week Comments Not Currently 1 (1 standard drink = 0.6 oz pur e alcohol) Comments No Sex and Gender Information Value Date Recorded Sex Assigned at Female 01/05/2024 10:25 AM CDT Legal Sex Female 1:41 PM BOX OFFICE MANAGER Gender Identity Female 01/05/2024 10:25 AM CDT Sexual Orientation Straight 01/05/2024 10 :25 AM CDT documented as of this encounter Miscellaneous Notes * Result Encounter Note - Mara Romero - 06/28/2024 2:21 PM CST Called and informed pt. Patient states if not taking pepcid and following a bland diet her symptomsare much more intense. Pt prefers [place]. Referral faxed. OFFICE MANAGER * Result Encounter Note - Mara Romero - 06/28/2024 1:38 PM CST Lvm for pt to call our office back regarding imagaing OFFICE MANAGER documented in this encounter Plan of Treatment Scheduled Referrals Name Type Priority Associated Diagnoses Orde r Schedule AMB REFERRAL TO GENERAL SURGERY Outpatient Referral Routine Dyspepsia Gallstones Ordered: 06/28/2024 documented as of this encounter Visit Diagnoses Diagnosis Dyspepsia- Primary Dyspepsia and other specified disorders of function of stomach Gallstones Calculus of gallbladder without mention of cholecystitis or obstruction documented in this encounter Additional Health Concerns Assessment Noted Time PHQ-9 Depression Total Score: 1 06/14/19 2:52 PM BOX OFFICE MANAGER documented as of this encounter
--- OUTSIDE RECORDS SUMMARY | 2024-08-03 12:01 | XMS_ITS | Clinical Summary ---
Author Organization [facility] Address [address] [place] [address] Care Team Providers Care Soaking Room Operator Name Role Phone Unknown, Provider Primary Care Provider Unavaila ble Source Comments [facility],non-owned Affiliates and Associated Physician Practices is amultiple site organization consisting of ambulatory clinics and hospital sitesin [place], [place], [place] and [place]. This disclosure is being madepursuant to the Care Everywhere program and may not contain all information available regarding this patient. Last updated 18.[facility] Allergies No known active allergies Medications * This document contains information received from the source organization and may not represent a complete record from that organization. * Be aware that medications may not be up to date on this document. Alwaysverify current medications with the patient. escitalopram (Lexapro) 20 MG tablet Take 1 (one) tablet by mouth once daily 3 Active lurasidone (Latuda) 20 MG tabletIndicatio ns:Major Depressive Disorder Take 1 (one) tablet by mouth daily with food Reasons: Major Depressive Disorder 30 tablet 3 Active prazosin (Minipress) 1 MG capsuleIndicati ons:Nightmares Take 1 (one) capsule by mouth at bedtime Reasons: Frightening Dreams 30 capsule 3 Active Social History Tobacco Use Types Packs/Day Years Used Date Smoking Tobacco: Never Smokeless Tobacco: Never Tobacco Cessation:Counseling Given: Not Answered Alcohol Use Standard Drinks/Week Comments Not Currently 0 (1 standard drink = 0.6 oz pur e alcohol) AUDIT-C Answer Date Recorded Q1: How often do you have a drink containing alcohol? Never 11/16/2022 Q2: How many drinks containi ng alcohol do you have on a typical day when you are drinking? Patient does not drink Q3: How often do you have si x or more drinks on one occasion? Never 11/16/2022 Comments Unknown Sex and Gender Information Value Date Recorded Sex Assigned at Not on file Legal Sex Female 3:18 PM CDT Gender Identity Not on file Sexual Orientation Not on file Last Filed Vital Signs Vital Sign Reading Time Taken Comments Blood Pressure 155/107 11/16/2022 3:53 PM CDT Pulse 72 11/16/2022 3:53 PM CDT Temperature 36.6 C (97.9 F) 11/16/2022 3:53 PM CDT Respiratory Rate 16 11/16/2022 3:53 PM CDT Oxygen Saturation - - Inhaled Oxygen Concentration - - Weight 100.8 kg (222 lb 3.2 oz) 11/16/2022 3:53 PM CDT Height 170.2 cm (5' 7 ) 11/16/2022 3:53 PM CDT Body Mass Index 34.8 11/16/2022 3:53 PM CDT Plan of Treatment Health Maintenance Due Date Last Done Comments PAP SMEAR 1992 HIV SCREENING 12/22/2007 HEPATITIS C SCREENING 12/17/2010 DTAP/TDAP/TD VACCINES (1 - Tdap) 12/22/2011 HEPATITIS B VACCINE (1 of 3 - 19+ 3-dose series) 12/22/2011 COVID-19 VACCINE ( season) 2023 DEPRESSION SCREENING 04/24/2024 INFLUENZA VACCINE (Season Ended) 2024 03/11/2022, 01/18/2021, 02/29/2020, Additional history exists ZOSTER VACCINE (1 of 2) 2042 HIB VACCINE Aged Out No longer eligi ble based on patient's age to complete this topic HPV VACCINE Aged Out No longer eligi ble based on patient's age to complete this topic MENINGOCOCCAL (Group B) VACCINE SHARED DECISION-MAKING Aged Out No longer eligible based on patient's age to complete this topic MENINGOCOCCAL GROUPS A/C/Y/W VACCINE Aged Out No longer eligible based on patient's age to complete this topic PNEUMOCOCCAL VACCINE Aged Out No long er eligible based on patient's age to complete this topic Insurance C[employer] CIGNA Care Teams Soaking Room Operator Relationship Specialty Start Date End Date Unknown, Provider PCP - General 11/16/22
--- OUTSIDE RECORDS SUMMARY | 2024-08-03 12:01 | XMS_ITS | Data Portability ---
Author Organization [facility] [place] Address [address] [place] [address] [place] [address] Assessment No assessment recorded. Plan of Treatment Reminders Order Date Submit Date Provider Last Modified By Organization Details Last Modified Time Details Appointments None recorded. Lab test, urine 2024 025 [email or web address] [address], [address], [place], [address], 5 15:16:05 test, urine 2023 024 [email or web address] [address], [address], [place], [address], 4 10:57:12 Referral None recorded. Procedures None recorded. Surgeries None recorded. Imaging US, obstetric, biophysical profile + non-stress test 2023 024 [email or web address] [address], [address], [place], [address], 4 11:45:26 Medication Orders ParaGard T 380A 380 square mm intrauterin e device 2024 025 [email or web address] Not available 5 15:15:48 Mirena 21 mcg/24 hr (up to 8 years) 52 mg intrauterin e device 2023 024 [email or web address] Not available 5 14:45:16 Patient TargetsNo targets recorded. Patient InstructionsNo instructions recorded. Reason for Referral None Reported. Results Created Date Observation Date Name Description Value Unit Range Abnormal Flag Note LastModifiedBy Organization Detail LastModifiedTime 01/02/20 24 01/02/2024 CULTU RE: GROUP B STREP SCREE N result report SEE RESULT S BELOW abnormal Test: Cultu re: Group B Strep Scree n - Vagin al/Re ctal Speci men Sourc e: Vagin a/Rec hunter Speci men Type: Vagin al/Re ctal Speci men Date: 2023 1344 Resul t Date: 2023 2205 Resul t Statu s: Edite d Resul t - FINAL Abnor mal: Yes Resul ting Lab: [facility] [address] [facility] [address] Tel: CULTU RE ----- ----- ----- --- Posit elaine for Strep tococ cus agala ctiae (Grou p B) (Abno rmal) Strep tococ cus agala ctiae (Beta strep Group B Strep ) remai ns unive rsall y susce ptibl e to penic illin , cefaz mike and vanco mycin . If clind amyci n is being consi dered for intra partu m proph ylaxi s, pleas e conta ct the lab withi n [address]. [address] [facility] (Lab) [address] [facility] [facility], [place], [address], 01/04/2024 23:08:06 04/05/20 24 04/05/2024 pregn silvia test, urine HCG negati ve Not Available [place] [address], [place], [address], 04/05/2024 10:57:05 06/21/19 25 06/21/2024 pregn silvia test, urine HCG negati ve Not Available [place] [address], [place], [address], 06/21/2024 15:15:55 12/12/19 24 12/12/2023 US, obste tric, bioph ysica l profi le + non-s tress test No observ ation record ed. [email or web address] [place] [address], [place], [address], 12/12/2023 17:39:33 12/12/19 24 12/12/2023 US, obste tric, bioph ysica l profi le + non-s tress test No observ ation record ed. [email or web address] [address], [place], [address], 12/12/2023 12:26:11 12/12/19 24 12/12/2023 non-s tress test No observ ation record ed. [email or web address] [place] [address], [place], [address], 12/12/2023 11:15:05 12/19/19 24 12/19/2023 US, obste tric, follo w-up No observ ation record ed. [email or web address] [place] [address], [place], [address], 12/19/2023 12:45:50 12/19/19 24 12/19/2023 US, lamar tric, bioph ysica l profi le + non-s tress test No observ ation record ed. [email or web address] [place] [address], [place], [address], 12/19/2023 12:46:01 12/19/19 24 12/19/2023 non-s tress test No observ ation record ed. [email or web address] [place] [address], [place], [address], 12/19/2023 11:18:32 12/19/19 24 12/19/2023 US, obste tric, follo w-up No observ ation record ed. [email or web address] [address], [place], [address], 12/20/2023 07:28:28 12/26/19 24 12/26/2023 non-s tress test No observ ation record ed. [email or web address] [place] [address], [place], [address], 12/26/2023 11:07:18 12/26/19 24 12/26/2023 US, obste tric, bioph ysica l profi le + non-s tress test No observ ation record ed. [email or web address] [place] [address], [place], [address], 12/26/2023 12:31:52 12/26/19 24 12/26/2023 US, obste tric, follo w-up No observ ation record ed. [email or web address] [address], [place], [address], 12/27/2023 10:34:58 12/28/19 24 12/28/2023 imagi ng/di agnos tic resul t No observ ation record ed. [facility] [address], [place], [address], 01/04/2024 10:55:06 01/02/20 24 01/02/2024 non-s tress test No observ ation record ed. [email or web address] [place] [address], [place], [address], 01/02/2024 12:08:40 01/02/20 24 01/02/2024 US, obste tric, bioph ysica l profi le + non-s tress test No observ ation record ed. [email or web address] [place] [address], [place], [address], 01/02/2024 18:27:37 01/03/20 24 01/02/2024 US, obste tric, bioph ysica l profi le + non-s tress test No observ ation record ed. [email or web address] [address], [place], [address], 01/03/2024 22:30:38 01/09/20 24 01/09/2024 non-s tress test No observ ation record ed. [email or web address] [place] [address], [place], [address], 01/09/2024 11:10:54 01/09/20 24 01/09/2024 US, obste tric, bioph ysica l profi le + non-s tress test No observ ation record ed. [email or web address] [place] [address], [place], [address], 01/09/2024 13:16:58 01/09/20 24 01/09/2024 US, obste tric, bioph ysica l profi le + non-s tress test No observ ation record ed. [email or web address] [address], [place], [address], 01/09/2024 21:53:15 Result Notes None recorded. Problems Name Problem SNOMED Code Status Onset Date Resolution Date Notes Provider Name and Address Organization Details Recorded Time Pregnanc y 33347862 Completed 202301/18/2024 Russell voss [facility] 4 12:48:19 Chronic hyperten jimmy in obstetri c context 8673896 Completed Procardi a XL 30 daily, bASA; baseline labs ordered 07/25; 32 week antenata l testing; inductio n 37 weeks LENY AUGUSTINE MD [address], [place], [address], [facility] 4 14:56:03 Prediabe carmen [id number] Completed A1c 5.9%, early 1h GCT LENY AUGUSTINE MD [address], [place], [address], [facility] 4 14:56:03 Prediabe carmen 571314380 Active A1c 5.9%, early 1h GCT LENY AUGUSTINE MD [address], [place], [address], [facility] 4 14:56:03 Chronic hyperten jimmy in obstetri c context 9937959 Active Procardi a XL 30 daily, bASA; baseline labs ordered 07/25; 32 week antenata l testing; inductio n 37 weeks LENY AUGUSTINE MD [address], [place], [address], [facility] 4 14:56:03 Gestatio nal diabetes mellitus 68108032 Completed 1 abnormal level checking bs x2wks- Ruled in GDM diet cont 10/04 - BS QID & serial growth LENY AUGUSTINE MD [address], [place], [address], [facility] 4 14:56:03 Mixed anxiety and depressi ve disorder 508677205 Active mago AUGUSTINE MD [address], [place], [address], [facility] 4 14:56:03 Mixed anxiety and depressi ve disorder 690352213 Completed mago AUGUSTINE MD [address], [place], [address], [facility] 4 14:56:03 Problem Notes None recorded. Procedures Surgical History Date Name Laterality Status Provider Name and Address Organization Details Recorded Time 06/21/19 25 IUD Removal completed LENY AUGUSTINE MD [address], [place], [address], [facility] 06/21/2024 15:14:51 06/21/19 25 IUD Insertion completed LENY AUGUSTINE MD [address], [place], [address], [place] [facility] 06/21/2024 15:19:31 04/05/20 24 IUD Insertion completed LENY AUGUSTINE MD [address], [place], [address], [facility] 04/05/2024 10:45:17 04/10/20 23 Hysteroscopy completed LENY AUGUSTINE MD [address], [place], [address], [facility] 04/10/2023 16:18:41 10/15/19 22 Date of Last Pap Smear completed Court Bass [facility] 06/07/2022 15:48:29 Imaging Results Imaging Date Name Status LastModified by Organiz ation Details LastModified Time 12/12/2023 US, obstetric, biophysical profile + non-stress test completed [email or web address] [place] [address], [place], [address], 12/12/2023 17:39:33 12/12/2023 US, obstetric, biophysical profile + non-stress test completed [email or web address] [address], [place], [address], 12/12/2023 12:26:11 12/12/2023 non-stress test completed [facility] [email or web address] [place] [address], [place], [address], 12/12/2023 11:15:05 12/19/2023 US, obstetric, follow-up completed [email or web address] [place] [address], [place], [address], 12/19/2023 12:45:50 12/19/2023 US, obstetric, biophysical profile + non-stress test completed [email or web address] [place] [address], [place], [address], 12/19/2023 12:46:01 12/19/2023 non-stress test completed [facility] [email or web address] [place] [address], [place], [address], 12/19/2023 11:18:32 12/19/2023 US, obstetric, follow-up completed [email or web address] [address], [place], [address], 12/20/2023 07:28:28 12/26/2023 non-stress test completed [facility] [address], [place], [address], 12/26/2023 11:07:18 12/26/2023 US, obstetric, biophysical profile + non-stress test completed [email or web address] [place] [address], [place], [address], 12/26/2023 12:31:52 12/26/2023 US, obstetric, follow-up completed [email or web address] [address], [place], [address], 12/27/2023 10:34:58 12/28/2023 imaging/diagnos tic result completed [facility] [address], [place], [address], 01/04/2024 10:55:06 01/02/2024 non-stress test completed [address], [place], [address], 01/02/2024 12:08:40 01/02/2024 US, obstetric, biophysical profile + non-stress test completed [email or web address] [place] [address], [place], [address], 01/02/2024 18:27:37 01/02/2024 US, obstetric, biophysical profile + non-stress test completed [email or web address] [address], [place], [address], 01/03/2024 22:30:38 01/09/2024 non-stress test completed [email or web address] [place] [address], [place], [address], 01/09/2024 11:10:54 01/09/2024 US, obstetric, biophysical profile + non-stress test completed [email or web address] [place] [address], [place], [address], 01/09/2024 13:16:58 01/09/2024 US, obstetric, biophysical profile + non-stress test completed [email or web address] [address], [place], [address], 01/09/2024 21:53:15 Procedure Notes None recorded. Medical Equipment None Reported. Allergies Allergen ID Allergen Name Allergen Category Reaction Reaction Severity Criticality Documentation Date Start Date Code Code System Note Provider Name and Address Organization Details Recorded Time pineapple allergeni c extract food,medi cation Not available Not available Not available 06/07/[address], [facility] 3 15:48:28 cat dander environme nt Not available Not available Not available 06/07/[address] [facility] 3 15:48:28 Medications Name Sig Start Date Stop Date Status Note LastModified by Organization Details LastModified Time nifedipine ER 30 mg tablet,exte nded release 24 hr TAKE 1 TABLET BY MOUTH EVERY DAY active Not Available Not Available No t Available glycopyrrol ate 1 mg tablet 06/07 completed Not Available Not Available Not Available amoxicillin 500 mg capsule TAKE 1 CAPSULE BY MOUTH THREE TIMES DAILY FOR 10 DAYS 04/05 completed Not Available Not Available Not Available Mirena 21 mcg/24 hr (up to 8 years) 52 mg intrauterin e device Take 1 device by intrauter ine route. 06/21 completed Not Available Not Available Not Available doxycycline hyclate 100 mg capsule TAKE 1 CAPSULE BY MOUTH TWICE DAILY WITH FULL GLASS OF WATER. DO NOT LAY DOWN FOR 1 HOUR AFTER TAKING. 11/16 completed Not Available Not Available Not Available ibuprofen 800 mg tablet TAKE 1 TABLET BY MOUTH 2 HOURS BEFORE THE PROCEDURE 07/02 completed Not Available Not Available Not Available prazosin 1 mg capsule TAKE 1 CAPSULE BY MOUTH AT BEDTIME FOR NIGHTMARE S 02/06 completed Not Available Not Available Not Available ondansetron HCl 4 mg tablet TAKE 1 TABLET BY MOUTH EVERY 4 TO 6 HOURS NEEDED 04/05 completed Not Available Not Available Not Available meclizine 12.5 mg tablet 07/02 completed Not Available Not Available Not Available hydrocodone 10 mg-acetamin ophen 325 mg tablet TAKE 1 TABLET BY MOUTH 2 HOURS BEFORE THE PROCEDURE 07/02 completed Not Available Not Available Not Available ondansetron 8 mg disintegrat ing tablet DISSOLVE 1 TABLET ON THE TONGUE 2 HOURS BEFORE PROCEDURE 06/22 completed Not Available Not Available Not Available lamotrigine 25 mg tablet TAKE 1 TABLET BY MOUTH EVERY DAY FOR 14 DAYS THEN TAKE 2 TABLETS BY MOUTH EVERY DAY FOR 14 DAYS FOR MAJOR DEPRESSIO N 02/06 completed Not Available Not Available Not Available alprazolam 0.5 mg tablet TAKE 1 TABLET BY MOUTH 2 HOURS BEFORE THE PROCEDURE 07/02 completed Not Available Not Available Not Available OneTouch Ultra Test strips USE TO TEST BLOOD SUGARS FOUR TIMES DAILY 04/05 completed Not Available Not Available Not Available Pepcid 20 mg tablet Take 1 tablet twice a day by oral route. active Not Available Not Available No t Available scopolamine 1 mg over 3 days transdermal patch 07/02 completed Not Available Not Available Not Available ondansetron 4 mg disintegrat ing tablet DISSOLVE 2 TABLETS ON THE TONGUE TWICE DAILY 04/05 completed Not Available Not Available Not Available ParaGard T 380A 380 square mm intrauterin e device Take 1 device by intrauter ine route. 2024 active Not Available Not Available Not Avai lable metoclopram linda 10 mg tablet TAKE 1 TABLET BY MOUTH EVERY 6 HOURS NEEDED FOR NAUSEA 07/02 completed Not Available Not Available Not Available clindamycin 1 % lotion APPLY LOTION TOPICALLY TO AFFECTED AREA ONCE DAILY AT BEDTIME 07/26 /2023 completed Not Available Not Available Not Available escitalopra m 20 mg tablet active Not Available Not Available Not Available cyclobenzap rine 5 mg tablet 07/02 completed Not Available Not Available Not Available Unisom (doxylamine ) 04/05 completed Not Available Not Available Not Available active Not Available Not Avai lable Not Available Unisom SleepGels 11/16 completed Not Available Not Available Not Available Baby Aspirin 04/05 completed Not Available Not Available Not Available Daily 11/16 completed Not Available Not Available Not Available lurasidone 20 mg tablet TAKE 1 TABLET BY MOUTH DAILY WITH FOOD FOR MAJOR DEPRESSIO N 02/06 completed Not Available Not Available Not Available OneTouch Ultra2 Meter USE TO TEST BLOOD SUGARS FOUR TIMES DAILY 04/05 completed Not Available Not Available Not Available OneTouch Delica Plus Lancet 30 gauge USE TO TEST BLOOD SUGARS FOUR TIMES DAILY 04/05 completed Not Available Not Available Not Available Vitals Date Recorded Body height Body mass index (BMI) Body weight Systolic blood pressure Diastolic blood pressure Provider Name and Address Organization Details Last Updated DateTime 01/09/2024 170.18 cm 33.4 kg/m2 21479.17 g 130 mm[Hg] 78 mm[Hg] [facility] 4 10:59:30 Date Recorded Body height Body mass index (BMI) Body weight Systolic blood pressure Diastolic blood pressure Provider Name and Address Organization Details Last Updated DateTime 02/19/2024 170.18 cm 31.2 kg/m2 76892.88 g 116 mm[Hg] 77 mm[Hg] [facility] 4 14:31:43 Date Recorded Body height Body mass index (BMI) Body weight Systolic blood pressure Diastolic blood pressure Provider Name and Address Organization Details Last Updated DateTime 04/05/2024 170.18 cm 30.7 kg/m2 17648.1 g 131 mm[Hg] 79 mm[Hg] [facility] 4 10:20:44 Date Recorded Body height Body mass index (BMI) Body weight Systolic blood pressure Diastolic blood pressure Provider Name and Address Organization Details Last Updated DateTime 06/10/2024 170.18 cm 30.7 kg/m2 51651.1 g 127 mm[Hg] 80 mm[Hg] Andressa Tierney [facility] 16:00:52 Date Recorded Body height Body mass index (BMI) Body weight Systolic blood pressure Diastolic blood pressure Provider Name and Address Organization Details Last Updated DateTime 06/21/2024 170.18 cm 31 kg/m2 97772.29 g 123 mm[Hg] 76 mm[Hg] Andressa Tierney [facility] 14:44:27 Social History Question Answer Notes LastModified by Organizat ion Details LastModified Time Tobacco Smoking Status [facility] 10:19:11 What Is Your Level Of Alcohol Consumption? None [email or web address] Information not available 06/07/2022 If You Are , What Was Your Level Of Alcohol Consumption Prior To ? Occasional Information not available 02/06/2023 How Many Years Have You Consumed Alcohol? 9 [email or web address] Information not available 06/07/2022 Are You Blind Or Do You Have Difficulty Seeing? No [email or web address] Information not available 06/07/2022 What Is Your Level Of Caffeine Consumption? Moderate [email or web address] Information not available 06/07/2022 How Much Tobacco Do You Chew? None [email or web address] Information not available 06/07/2022 In The 14 Days Before Symptom Onset, Have You Had Close Contact With A Laboratory-confir med COVID-19 While That Case Was Ill? No [email or web address] Information not available 06/07/2022 In The 14 Days Before Symptom Onset, Have You Had Close Contact With A Person Who Is Under Investigation For COVID-19 While That Person Was Ill? No [email or web address] Information not available 06/07/2022 Have You Been To An Area Known To Be High Risk For COVID-19? No [email or web address] Information not available 06/07/2022 Are You Deaf Or Do You Have Serious Difficulty Hearing? No [email or web address] Information not available 06/07/2022 What Type Of Diet Are You Following? REGULAR [email or web address] Information not available 06/07/2022 Do You Or Have You Ever Used E-cigarettes Or Vape? Former User Of Electronic Cigarettes Information not available 02/06/2023 What Is The Highest Grade Or Level Of School You Have Completed Or The Highest Degree You Have Received? 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 Information not available 02/06/2023 Are There Any Guns Present In Your Home? No [email or web address] Information not available 06/07/2022 Do You Use Protection During Sex? No [email or web address] Information not available 06/07/2022 Do You Use Your Seat Belt Or Car Seat Routinely? Yes [email or web address] Information not available 06/07/2022 Do You Have Smoke And Carbon Monoxide Detectors In Your Home? Yes Information not available 06/07/2022 How Much Tobacco Do You Smoke? No [email or web address] Information not available 06/07/2022 Do You Feel Stressed (tense, Restless, Nervous, Or Anxious, Or Unable To Sleep At Night)? [id number] Information not available 06/07/2022 Do You Use Any Illicit Or Recreational Drugs? No [email or web address] Information not available 06/07/2022 Do You Use Sunscreen Routinely? No [email or web address] Information not available 06/07/2022 Has Tobacco Cessation Counseling Been Provided? No Information not available 02/06/2023 Have You Used IV Drugs? No Information not available 06/07/2022 Do You Or Have You Ever Used Any Other Forms Of Tobacco Or Nicotine? Yes Information not available 02/06/2023 Sex: Female Functional Status Question Answer Note LastModified by Organizat ion Details LastModified Time Do you have difficulty walking or climbing stairs? No Information not available 02/06/2023 Are you able to walk? [email or web address] Information not available 06/07/2022 Are you able to care for yourself? Yes Information not available 02/06/2023 Do you have difficulty dressing or bathing? No Information not available 02/06/2023 What is your exercise level? Occasional [email or web address] Information not available 06/07/2022 Mental Status None recorded. Family History Relationship Description Onset Age of this Age Resolved Age Notes LastModified by Organization Details LastModified Time Maternal Aunt Disorder of thyroid gland [email or web address] Not available 10/23 14:34:28 Maternal Aunt Anxiety disorder [email or web address] Not available 10/23 14:34:28 Paternal Grandfather Hypertensive disorder [email or web address] Not available 10/23 14:34:28 Paternal Grandfather Heart disease [email or web address] Not available 06/07 15:48:28 Paternal Grandfather Diabetes mellitus [email or web address] Not available 06/07 15:54:21 Mother Asthma [email or web address] Not available 06/07/2022 15:48:28 Mother Anxiety disorder [email or web address] Not available 06/07 15:48:28 Mother Endometrial carcinoma [email or web address] Not available 10/23 14:34:28 Mother Anemia [email or web address] Not available 06/07/2022 15:48:28 Mother Depressive disorder [email or web address] Not available 06/07 15:48:28 Mother Osteoporosis [email or web address] Not tim ilable 06/07/2022 15:48:28 Mother Disorder of thyroid gland [email or web address] Not available 10/23 14:34:28 Mother Hypertensive disorder [email or web address] Not available 10/23 14:34:28 Mother Polycystic ovary syndrome Not available 2024 15:54:44 Mother Malignant tumor of ovary [email or web address] Not available 10/23 14:34:28 Father Depressive disorder [email or web address] Not available 06/07 15:48:28 Father Hypertensive disorder [email or web address] Not available 10/23 14:34:28 Father Diabetes mellitus [email or web address] Not available 06/07 15:48:28 Father Anxiety disorder [email or web address] Not available 10/23 14:34:28 Paternal Aunt Disorder of thyroid gland [email or web address] Not available 06/07 15:48:28 Paternal Aunt Depressive disorder [email or web address] Not available 10/23 14:34:28 Paternal Aunt Hypertensive disorder [email or web address] Not available 10/23 14:34:28 Paternal Aunt Heart disease [email or web address] Not available 06/07 15:48:28 Paternal Aunt Diabetes mellitus [email or web address] Not available 06/07 15:48:28 Paternal Aunt Anxiety disorder [email or web address] Not available 10/23 14:34:28 Maternal Grandfather Depressive disorder [email or web address] Not available 06/07 15:48:28 Paternal Grandmother Hypertensive disorder [email or web address] Not available 10/23 14:34:28 Paternal Grandmother Heart disease [email or web address] Not available 06/07 15:53:08 Paternal Grandmother Diabetes mellitus [email or web address] Not available 10/23 14:34:28 Maternal Uncle Anxiety disorder [email or web address] Not available 10/23 14:34:28 Maternal Uncle Depressive disorder [email or web address] Not available 10/23 14:34:28 Paternal Uncle Anxiety disorder [email or web address] Not available 10/23 14:34:28 Paternal Uncle Depressive disorder [email or web address] Not available 10/23 14:34:28 Unspecified Relation Malignant tumor of colon materi al cousin [email or web address] Not available 11/16/2022 14:34:28 Maternal Grandmother Malignant tumor of pancreas 63 [email or web address] Not available 2024 15:54:44 Medical History Condition Response Allergies (Food, seasonal, environmental ) N Other Y Breast Cancer N Drug/Latex Allergies/Reactions N Blood Transfusion N Dermatologic Disorders N Lung Disease N Defects or Inherited Disease N Breast Problem N Gestational Diabetes N Hematologic disorders N Anesthesia Complications N History of STI N Deep Vein Thrombosis N Polycystic ovary syndrome N Anxiety Disorder Y Autoimmune disease N Arthritis N Infertility N Polyps N Acid Reflux (GERD) N History of abnormal pap N Cancer N Stroke N Varicosities N Neurologic/Epilepsy N Endometriosis N High Cholesterol N Headaches N Fibromyalgia N Kidney Disease N Heart Problems N Kidney or Bladder Problems N Thyroid Problems N GI Problems N Eating Disorder N Anemia Y Art (IVF or FET) N Psychiatric Illness N Ovarian Cancer N Diabetes N Pulmonary (TB, Asthma) N Hepatitis/Liver Disease N No Past Medical History N Eczema N Urinary Tract Infection N Abuse/Domestic Violence N Asthma N Trauma/Violence N Depression/ depression Y Heart Disease N Pre-Eclampsia N Hypertension N Osteoporosis N Thrombophilias N Gynecological History Statement/Question Response Flow Heavy Date of LMP 04/03/2024 N Was last menstrual period normal Y STIs/STDs N HPV Vaccine N Duration of Flow (days) 11 Current Control Method IUD Frequency of Cycle (Q days) 29 Sexually Active? Y Menses Monthly Y Age of first menstrual cycle 9 Date of Last Pap Smear 10/14/2021 Sexual Problems? N LMP Definite N Obstetrics History GPAL:G 3 P 1 0 2 1 Type Value Full Term 1 Spontaneous 2 Living 1 Total 3 Past Encounters Encounter ID Performer Location Encounter Start Date Encounter Closed Date Diagnosis/Indication Diagnosis SNOMED-CT Code Diagnosis ICD10 Code Diagnosis Note [id number] Christal Ireland [facility] [address] [address] 06/07/2022 15:24:34 06/08/2022 12:20:47 Miscarriage 02321964 O03.9 Discussed following hcg until negative. Bleeding precaution s given. Discussed future pregnancie s. Offered grief resources. [id number] LUCILLE Zuleta [facility] [address] [address] 11/16/2022 14:19:11 11/16/2022 16:15:28 Depressive disorder [id number] F32.A We discussed her depression symptoms in-depth. Recommend immediate evaluation . Offered transport to ED through EMS, declined by patient. Waited with patient while she called her partner to come to the office. discussed with patient and her partner the need for immediate evaluation , they are agreeable. Her partner will take her to [facility] urgent care now for evaluation . address and phone number of facility given to partner.Pr ecautions reviewed - discussed elevated BPshe is going to continue to track/darin tor her periods, if needed she will f/u to pursue a pelvic u/s at a later date Time spent in visit is a total of 40 mins with at least 50% of visit consisting of counseling and review of plan of care. Suicidal thoughts 857204 6 R45.851 Irregular periods 757810 07 N92.6 [id number] LENY AUGUSTINE MD [facility] [address],[place] [address] 02/06/2023 10:01:40 02/07/2023 08:49:58 History of recurrent miscarriage - not [id number] N96 - hx of 2 spontaneou s miscarriag es, no prior pregnancie s- denies abnormal menses, uterine or ovarian surgery, no hx of STDs- discussed causes of RPL including uterine anomalies, polyps, fibroids, abnormal thyroid function, diabetes, APLS, and uncontroll ed HTN- labs as below- plan for SIS when able in office (catheters on back order) Essential hypertension 29849812 I10 - never on meds- patient to send in log of BPs for 1 week, then will likely start medication s [id number] Jacinda Hanna [facility] [address],[place] [address] 03/28/2023 09:31:22 03/28/2023 11:20:31 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 [id number] LENY AUGUSTINE MD [place] [address],[place] [address] 03/31/2023 15:51:23 03/31/2023 16:50:15 Recurrent miscarriage [id number] N96 - TSH, PRL, APLS labs all wnl- A1c slightly elevated- Pelvic US with possible polyp at fundus, recommend HSC and possible polypectom y for evaluation - Will schedule in office- Karyotype ordered, recommend paternal karyotype if maternal normal Essential hypertension 82240361 I10 - never on meds- BP elevated again today, recommend starting medication s, patient agreeable- Pt to monitor BP at home, educated on signs of hypotensio n- Prediabetes 312402907 R7 3.03 - A1c 5.9%- discussed lifestyle modificati ons [id number] LENY AUGUSTINE MD [facility] [address],[place] [address] 04/10/2023 14:50:13 04/10/2023 16:39:54 Recurrent miscarriage [id number] N96 - karyotype collected, will follow up on results as available Female infertility 74816 08 N97.9 [id number] [facility] [address],[place] [address] 06/12/2023 17:34:22 06/13/2023 08:47:30 care: poor obstetric history 275429850 O09.291 O36.80X0 Z3A.01 [id number] [facility] [address],[place] [address] 06/29/2023 16:49:20 06/29/2023 17:20:48 [id number] LENY AUGUSTINE MD [place] [address],[place] [address] 07/03/2023 16:08:04 07/04/2023 08:13:15 Nausea and vomiting 77734256 R11.2 test positive 481779016 Z32.01 1. Exam today within normal limits.2. Ultrasound today confirms GA and viability. EDC . GC/Clamydi a testing done: will f/u as indicated. 4. ACOG guidelines and plan of care for reviewed with patient. All questions answered.5 . Return to office at 12 weeks for new OB visit6. Will need new OB labs at next visit.7. 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 F41.8 - continue escitalopr am [id number] [facility] [address],[place] [address] 07/04/2023 11:49:57 07/04/2023 12:34:48 Threatened miscarriage 79017535 O20.0 O09.291 Z3A.09 [id number] [facility] [address],[place] [address] 07/25/2023 15:44:52 07/25/2023 16:58:15 screening 481827367 Z36.82 Z3A.12 [id number] LENY AUGUSTINE MD [place] [address],[place] [address] 07/26/2023 10:03:15 07/26/2023 15:47:20 Gestation period, 12 weeks 51525251 Z3A.12 Chronic hy pertension complicating AND/OR reason for care during 30597781 O16.9 Chronic hy pertension in obstetric context 8148318 O16.9 Prediabetes 904608102 R7 3.03 - A1c 5.9%- discussed lifestyle modificati ons [id number] LENY AUGUSTINE MD [place] [address],[place] [address] 08/29/2023 16:19:17 08/30/2023 11:08:45 Chronic hypertension in obstetric context 6163914 O16.9 Prediabetes 341790695 R7 3.03 - A1c 5.9%- discussed lifestyle modificati ons Gestation period, 17 weeks 05170631 Z3A.17 [id number] [facility] [address],[place] [address] 09/07/2023 14:23:14 09/08/2023 12:43:26 [id number] Tawana [facility] [address],[place] [address] 09/25/2023 09:30:20 09/25/2023 10:46:27 screening for malformation 127617574 Z36.3 Z3A.21 [id number] LENY AUGUSTINE MD [place] [address],[place] [address] 09/28/2023 09:27:36 09/28/2023 11:40:42 Prediabetes 501764471 R73.03 - A1c 5.9%- discussed lifestyle modificati ons Chronic hy pertension complicating AND/OR reason for care during 43904892 O16.9 Gestation period, 22 weeks 08374406 Z3A.22 [id number] [facility] [address],[place] [address] 10/09/2023 10:43:21 10/09/2023 11:44:03 Gestational diabetes mellitus 43540414 O24.410 Pt here for diet teaching. Went over ideal ranges for FBS and pp BS. Went over carb counting and carb ranges for each meal/snack . Gave ideas for foods to eat for meals/snac ks. Discussed drink options and to avoid soda and juice. Told pt she can go online to ADA for meal options or to look up low carb meal recipes online for ideas as well. Pt has been checking sugars since 10/02. After she was ruled in for GDM on 10/04 and was given diet recommenda tions over the phone before DT sugars have improved. Only 1 elevated breakfast, and pt decreased amount of fruit and last 2 days of breakfast after that were normal. Told pt to continue checking BS QID and adjusting diet to follow low carb diet to try to keep BS within normal range. Pt aware if sugars aren't controlled by diet we would discuss starting insulin. Pt informed we will want serial growth u/s and to continue checking BS for her and baby's health. Pt aware if she would be medication controlled we would have to discuss extra appointmen ts. Pts next appt is on 10/26 and added growth u/s with this. Told pt if she has any questions/ problems with her sugars before this appt to call. Pts questions were answered and pt verbalized understand ing. KIMBERLY moser [id number] [facility] [address] [address] 10/27/2023 09:27:39 10/27/2023 10:18:14 Gestational diabetes mellitus 68047220 O24.410 Z36.2 Z3A.26 Pt here for diet teaching. Went over ideal ranges for FBS and pp BS. Went over carb counting and carb ranges for each meal/snack . Gave ideas for foods to eat for meals/snac ks. Discussed drink options and to avoid soda and juice. Told pt she can go online to ADA for meal options or to look up low carb meal recipes online for ideas as well. Pt has been checking sugars since 10/02. After she was ruled in for GDM on 10/04 and was given diet recommenda tions over the phone before DT sugars have improved. Only 1 elevated breakfast, and pt decreased amount of fruit and last 2 days of breakfast after that were normal. Told pt to continue checking BS QID and adjusting diet to follow low carb diet to try to keep BS within normal range. Pt aware if sugars aren't controlled by diet we would discuss starting insulin. Pt informed we will want serial growth u/s and to continue checking BS for her and baby's health. Pt aware if she would be medication controlled we would have to discuss extra appointmen ts. Pts next appt is on 10/26 and added growth u/s with this. Told pt if she has any questions/ problems with her sugars before this appt to call. Pts questions were answered and pt verbalized understand ing. KIMBERLY moser [id number] LENY AUGUSTINE MD [place] [address],[place] [address] 10/27/2023 09:27:59 10/29/2023 15:01:16 Gestational diabetes mellitus class A1 59826110 O24.410 Gestation period, 26 weeks 23604926 Z3A.26 Chronic hy pertension in obstetric context 8810943 O16.9 Mixed anxi ety and depressive disorder 985854985 F41.8 - continue escitalopr am [id number] LENY AUGUSTINE MD [facility] [address],[place] [address] 11/10/2023 14:00:08 11/20/2023 16:17:46 Chronic hypertension in obstetric context 6620199 O16.9 Prediabetes 360722449 R7 3.03 - A1c 5.9%- discussed lifestyle modificati ons Gestationa l diabetes mellitus 21881541 O24.410 Mixed anxi ety and depressive disorder 239673519 F41.8 - continue escitalopr am [id number] [facility] [address],[place] [address] 11/24/2023 15:31:51 11/24/2023 16:07:55 Gestational diabetes mellitus 45633356 O24.410 Z3A.30 Pt here for diet teaching. Went over ideal ranges for FBS and pp BS. Went over carb counting and carb ranges for each meal/snack . Gave ideas for foods to eat for meals/snac ks. Discussed drink options and to avoid soda and juice. Told pt she can go online to ADA for meal options or to look up low carb meal recipes online for ideas as well. Pt has been checking sugars since 10/02. After she was ruled in for GDM on 10/04 and was given diet recommenda tions over the phone before DT sugars have improved. Only 1 elevated breakfast, and pt decreased amount of fruit and last 2 days of breakfast after that were normal. Told pt to continue checking BS QID and adjusting diet to follow low carb diet to try to keep BS within normal range. Pt aware if sugars aren't controlled by diet we would discuss starting insulin. Pt informed we will want serial growth u/s and to continue checking BS for her and baby's health. Pt aware if she would be medication controlled we would have to discuss extra appointmen ts. Pts next appt is on 10/26 and added growth u/s with this. Told pt if she has any questions/ problems with her sugars before this appt to call. Pts questions were answered and pt verbalized understand ing. KIMBERLY moser [id number] LENY AUGUSTINE MD [facility] [address],[place] [address] 11/24/2023 15:36:33 11/24/2023 16:45:37 screening 196537876 Z36.89 Gestationa l diabetes mellitus class A1 02848184 O24.410 Gestation period, 30 weeks 43009422 Z3A.30 Chronic hy pertension complicating AND/OR reason for care during 54151365 O16.9 [id number] Jacinda Hanna [facility] [address],[place] [address] 12/12/2023 09:48:26 12/12/2023 10:25:48 Chronic hypertension complicating AND/OR reason for care during 53353433 O16.3 O24.410 Z3A.32 [id number] Lou Shah [facility] [address],[place] [address] 12/12/2023 09:49:05 12/12/2023 11:15:08 Chronic hypertension complicating AND/OR reason for care during 75057851 O16.9 [id number] LENY AUGUSTINE MD [facility] [address],[place] [address] 12/12/2023 09:49:22 12/12/2023 11:44:09 Chronic hypertension in obstetric context 0149231 O16.9 - continue Procardia XL daily- asymptomat ic- BP well controlled Prediabetes 893561386 R7 3.03 - A1c 5.9%- discussed lifestyle modificati ons Mixed anxi ety and depressive disorder 267522635 F41.8 - continue escitalopr am Gestationa l diabetes mellitus class A1 35848091 O24.410 Gestation period, 32 weeks 9527287 Z3A.32 [id number] Jacinda Hanna [facility] [address] [address] 12/19/2023 09:52:24 12/19/2023 10:38:25 Gestational diabetes mellitus 61976605 O24.410 O16.3 Z3A.33 Pt here for diet teaching. Went over ideal ranges for FBS and pp BS. Went over carb counting and carb ranges for each meal/snack . Gave ideas for foods to eat for meals/snac ks. Discussed drink options and to avoid soda and juice. Told pt she can go online to ADA for meal options or to look up low carb meal recipes online for ideas as well. Pt has been checking sugars since 10/02. After she was ruled in for GDM on 10/04 and was given diet recommenda tions over the phone before DT sugars have improved. Only 1 elevated breakfast, and pt decreased amount of fruit and last 2 days of breakfast after that were normal. Told pt to continue checking BS QID and adjusting diet to follow low carb diet to try to keep BS within normal range. Pt aware if sugars aren't controlled by diet we would discuss starting insulin. Pt informed we will want serial growth u/s and to continue checking BS for her and baby's health. Pt aware if she would be medication controlled we would have to discuss extra appointmen ts. Pts next appt is on 10/26 and added growth u/s with this. Told pt if she has any questions/ problems with her sugars before this appt to call. Pts questions were answered and pt verbalized understand ing. KIMBERLY moser [id number] Lou Shah [facility] [address] [address] 12/19/2023 09:54:27 12/19/2023 12:12:15 Chronic hypertension complicating AND/OR reason for care during 97798482 O16.9 [id number] LENY AUGUSTINE MD [facility] [address],[place] [address] 12/19/2023 09:55:23 12/19/2023 23:11:20 [id number] LENY AUGUSTINE MD [facility] [address],[place] [address] 12/22/2023 14:18:17 12/22/2023 15:17:39 Chronic hypertension in obstetric context 9235757 O16.9 - continue Procardia XL daily- asymptomat ic- BP well controlled Mixed anxi ety and depressive disorder 155025434 F41.8 - continue escitalopr am Prediabetes 406218984 R7 3.03 - A1c 5.9%- discussed lifestyle modificati ons Gestationa l diabetes mellitus 03707375 O24.410 Gestation period, 34 weeks 87406839 Z3A.34 [id number] Lou Shah [facility] [address],[place] [address] 12/26/2023 09:52:26 12/26/2023 11:14:52 Chronic hypertension complicating AND/OR reason for care during 07054812 O16.9 [id number] Tawana Russell [facility] [address],[place] [address] 12/26/2023 09:52:52 12/26/2023 11:31:01 Gestational diabetes mellitus 11178611 O24.410 O10.013 Z3A.34 Pt here for diet teaching. Went over ideal ranges for FBS and pp BS. Went over carb counting and carb ranges for each meal/snack . Gave ideas for foods to eat for meals/snac ks. Discussed drink options and to avoid soda and juice. Told pt she can go online to ADA for meal options or to look up low carb meal recipes online for ideas as well. Pt has been checking sugars since 10/02. After she was ruled in for GDM on 10/04 and was given diet recommenda tions over the phone before DT sugars have improved. Only 1 elevated breakfast, and pt decreased amount of fruit and last 2 days of breakfast after that were normal. Told pt to continue checking BS QID and adjusting diet to follow low carb diet to try to keep BS within normal range. Pt aware if sugars aren't controlled by diet we would discuss starting insulin. Pt informed we will want serial growth u/s and to continue checking BS for her and baby's health. Pt aware if she would be medication controlled we would have to discuss extra appointmen ts. Pts next appt is on 10/26 and added growth u/s with this. Told pt if she has any questions/ problems with her sugars before this appt to call. Pts questions were answered and pt verbalized understand ing. KIMBERLY moser [id number] LENY AUGUSTINE MD [facility] [address],[place] [address] 12/26/2023 09:53:17 12/26/2023 11:51:13 Chronic hypertension in obstetric context 6840690 O16.9 - continue Procardia XL daily- asymptomat ic- BP well controlled Mixed anxi ety and depressive disorder 084964920 F41.8 - continue escitalopr am Gestationa l diabetes mellitus 77952122 O24.410 - continue glucose checks Gestation period, 34 weeks 52227084 Z3A.34 [id number] Lou Shah [facility] [address],[place] [address] 01/02/2024 09:51:40 01/02/2024 13:32:26 Chronic hypertension complicating AND/OR reason for care during 60308626 O16.9 [id number] Tawana Moss [facility] [address],[place] [address] 01/02/2024 09:52:21 01/02/2024 13:34:38 Gestational diabetes mellitus 49313704 O24.410 O10.013 Z3A.35 Pt here for diet teaching. Went over ideal ranges for FBS and pp BS. Went over carb counting and carb ranges for each meal/snack . Gave ideas for foods to eat for meals/snac ks. Discussed drink options and to avoid soda and juice. Told pt she can go online to ADA for meal options or to look up low carb meal recipes online for ideas as well. Pt has been checking sugars since 10/02. After she was ruled in for GDM on 10/04 and was given diet recommenda tions over the phone before DT sugars have improved. Only 1 elevated breakfast, and pt decreased amount of fruit and last 2 days of breakfast after that were normal. Told pt to continue checking BS QID and adjusting diet to follow low carb diet to try to keep BS within normal range. Pt aware if sugars aren't controlled by diet we would discuss starting insulin. Pt informed we will want serial growth u/s and to continue checking BS for her and baby's health. Pt aware if she would be medication controlled we would have to discuss extra appointmen ts. Pts next appt is on 10/26 and added growth u/s with this. Told pt if she has any questions/ problems with her sugars before this appt to call. Pts questions were answered and pt verbalized understand ing. KIMBERLY moser [id number] LENY AUGUSTINE MD [facility] [address] [address] 01/02/2024 09:52:36 01/04/2024 12:22:48 Chronic hypertension complicating AND/OR reason for care during 35974104 O16.9 Gestationa l diabetes mellitus 65665380 O24.410 - continue glucose checks Mixed anxi ety and depressive disorder 897647097 F41.8 - continue escitalopr am Gestation period, 35 weeks 43950385 Z3A.35 [id number] Tawana Russell [facility] [address] [address] 01/09/2024 09:53:08 01/09/2024 10:39:42 Gestational diabetes mellitus 21192485 O24.410 O10.013 Z3A.36 Pt here for diet teaching. Went over ideal ranges for FBS and pp BS. Went over carb counting and carb ranges for each meal/snack . Gave ideas for foods to eat for meals/snac ks. Discussed drink options and to avoid soda and juice. Told pt she can go online to ADA for meal options or to look up low carb meal recipes online for ideas as well. Pt has been checking sugars since 10/02. After she was ruled in for GDM on 10/04 and was given diet recommenda tions over the phone before DT sugars have improved. Only 1 elevated breakfast, and pt decreased amount of fruit and last 2 days of breakfast after that were normal. Told pt to continue checking BS QID and adjusting diet to follow low carb diet to try to keep BS within normal range. Pt aware if sugars aren't controlled by diet we would discuss starting insulin. Pt informed we will want serial growth u/s and to continue checking BS for her and baby's health. Pt aware if she would be medication controlled we would have to discuss extra appointmen ts. Pts next appt is on 10/26 and added growth u/s with this. Told pt if she has any questions/ problems with her sugars before this appt to call. Pts questions were answered and pt verbalized understand ing. KIMBERLY moser [id number] Lou Shah [facility] [address],[place] [address] 01/09/2024 09:53:35 01/09/2024 11:13:17 Chronic hypertension complicating AND/OR reason for care during 36260447 O16.9 [id number] LENY AUGUSTINE MD [place] [address],[place] [address] 01/09/2024 09:53:51 01/09/2024 11:44:51 Chronic hypertension in obstetric context 3834583 O16.9 - continue Procardia XL daily- asymptomat ic- BP well controlled Mixed anxi ety and depressive disorder 220291145 F41.8 - continue escitalopr am Gestationa l diabetes mellitus class A1 12465904 O24.410 Gestation period, 36 weeks 25252134 Z3A.36 [id number] LENY AUGUSTINE MD [facility] [address],[place] [address] 02/19/2024 14:22:47 02/19/2024 15:09:42 state 58824843 Z39.2 S/p 4 weeks ago here today for a visit.1. Patient recovering well2. Plans to continue combo feeding3. Interested in condoms for contracept ion at this time. Risks, benefits, and alternativ es reviewed with the patient4. Patient instructed to follow up in 6 months for well woman exam unless need arises prior [id number] LENY AUGUSTINE MD [facility] [address],[place] [address] 04/05/2024 09:56:03 04/05/2024 16:03:31 Insertion of intrauterine contraceptive device 71767907 Z30.430 - Mirena IUD placed without issue- due for removal 03/2032- rtc 4 weeks for string check Screening procedure 2012 5006 Z13.9 Contraception care 59920 5005 Z30.40 [id number] LENY AUGUSTINE MD [facility] [address] [address] 06/10/2024 15:54:22 06/13/2024 16:14:47 IUD check 986847229 Z30.431 - Mirena IUD placed 03/2024, however unhappy with mood symptoms- discussed options including replacemen t with Copper IUD; discussed menses changes that can occur with copper IUD- will return for removal and placement of copper iUD [id number] LENY AUGUSTINE MD [facility] [address] [address] 06/21/2024 14:23:43 06/21/2024 15:25:12 Contraception care 456441574 Z30.40 - Mirena removed easily and intact; Paraguard IUD placed without issue- due for removal 05/2034- rtc 4 weeks for string check Screening procedure 2012 5006 Z13.9 Health Concerns Section Related Observation LastModified by Organization Detai ls LastModified Time None Recorded Concern Status LastModified by Organization Details LastModified Time None Recorded Advance Directives Directive None Recorded Payers Encounter Date Sequence Insurance Name Policy Number Policy Moran Covered Member ID Moran Member ID Guarantor Name 01/09/2024 1 [facility] - CANDY Goodwin [id number] Joe Goodwin 02/19/2024 1 [facility] - CANDY Goodwin [id number] Joe Goodwin 04/05/2024 1 [facility] - CANDY Goodwin [id number] Joe Goodwin 06/10/2024 1 [facility] - CANDY Goodwin [id number] Joe Goodwin 06/21/2024 1 [facility] - CANDY Goodwin [id number] Joe Goodwin Notes Date Note Type Note Provider Name and Address Organization Details Recorded Time 02/19/2024 text/html S/P on 01/11 at 37 weeks gestation. was complicated by chronic hypertension and prediabetes. Complications with delivery: none. Patient denies any specific problems since delivery. Patient overall feeling well. Patient is combo feeding without problems. Has not had a period yet. No bleeding. Bowel and bladder function are normal. Pap due 2024. Denies any signs or symptoms of depression. Is coping with parenting well. Patient has not been sexually active since delivery. Patient is not interested in contraception at this time. LENY AUGUSTINE MD [address], [place], [address], [facility] 02/19/2024 15:09:13 04/05/2024 text/html Patient presents for IUD insertion. R/b/a discussed with patient. LENY AUGUSTINE MD [address], [place], [address], [facility] 04/05/2024 15:55:28 06/10/2024 text/html Presents today f or IUD check. Had mirena IUD placed 04/05/24. Has had increased mood symptoms since insertion. Patient has not had any cramping or pain. She is interested in switching to Paraguard IUD. LENY AUGUSTINE MD [address], [place], [address], [facility] 06/12/2024 23:54:58 06/21/2024 text/html Patient presents for removal of Mirena IUD and insertion of Paraguard IUD. Risks, benefits and alternatives discussed with patient who voices understanding. LENY AUGUSTINE MD [address], [place], [address], [facility] 06/21/2024 15:20:49 OBGyn Episode Ob Episode Information Episode Created Date Number of Fetuses Patient Bloodtype Patient rh Status Prepregnancy Weight lbs Domestic Partner Domestic Partner Phone Father Name Armhole Raiser Lockstitch Status 06/07/19 23 1 CLOSED Fetus Data First Name Last Name Admitted to NICU Weight (g) Sex Living Outcome Pediatric Complications Fetus ID Race Codes Race Delivery Type , Spontane ous [id number] Naresh Calculation Initial Naresh Date Initial Exam Date Initial Exam Provider Initial Ultrasound Date Last Menstrual Period Date Ultra Sound Weeks Gestation 0 Eighteen To Twenty Week Naresh Update Ultra Sound Date Fundal Height At Umbil Quickening Date Ultra Sound Latest Weeks Gestation Final Naresh Confirmed By Final Naresh Confirmed Date Final Naresh Date Ultra Sound Latest Days Gestation 0 0 Menstrual History Last Menstrual Date Menses Monthly On Bcp Conception Prior Menses Frequency Hcg Plus Date Menarche Onset Age Delivery Information Delivery Date Delivery Type Labor Anesthesia Weeks Gestation Incision Type Labor Labor Length Hrs Delivered By Post Complications Tubal Sterilization Discharge Date Comments 3 Discharge Information Feeding Method Contraceptive Method Maternal HG B and HCT Levels Ob Episode Information Episode Created Date Number of Fetuses Patient Bloodtype Patient rh Status Prepregnancy Weight lbs Domestic Partner Domestic Partner Phone Father Name Armhole Raiser Lockstitch Status 08/05/19 23 1 CLOSED Fetus Data First Name Last Name Admitted to NICU Weight (g) Sex Living Outcome Pediatric Complications Fetus ID Race Codes Race Delivery Type [id number] Naresh Calculation Initial Naresh Date Initial Exam Date Initial Exam Provider Initial Ultrasound Date Last Menstrual Period Date Ultra Sound Weeks Gestation 0 Eighteen To Twenty Week Naresh Update Ultra Sound Date Fundal Height At Umbil Quickening Date Ultra Sound Latest Weeks Gestation Final Naresh Confirmed By Final Naresh Confirmed Date Final Naresh Date Ultra Sound Latest Days Gestation 0 0 Menstrual History Last Menstrual Date Menses Monthly On Bcp Conception Prior Menses Frequency Hcg Plus Date Menarche Onset Age Delivery Information Delivery Date Delivery Type Labor Anesthesia Weeks Gestation Incision Type Labor Labor Length Hrs Delivered By Post Complications Tubal Sterilization Discharge Date Comments 3 Discharge Information Feeding Method Contraceptive Method Maternal HG B and HCT Levels Ob Episode Information Episode Created Date Number of Fetuses Patient Bloodtype Patient rh Status Prepregnancy Weight lbs Domestic Partner Domestic Partner Phone Father Name Armhole Raiser Lockstitch Status 07/26/19 24 1 219 CLOSED Fetus Data First Name Last Name Admitted to NICU Weight (g) Sex Living Outcome Pediatric Complications Fetus ID Race Codes Race Delivery Type 2891.64 9 M true Full Term [id number] Vaginal Delivery Problems Problem Notes Problem Name Start Date End Date Resolution Snomed Code Not e Chronic hypertension in obstetric context 3190184 Procardia XL 30 daily, bASA; baseline labs ordered 07/25; 32 week testing; induction 37 weeks Prediabetes 384062157 A1c 5.9% , early 1h GCT Mixed anxiety and depressive disorder [id number] lexapro Gestational diabetes mellitus [id number] 1 abnormal leve l checking bs [id number]- Ruled in GDM diet cont 10/04 - BS QID & serial growth Naresh Calculation Initial Naresh Date Initial Exam Date Initial Exam Provider Initial Ultrasound Date Last Menstrual Period Date Ultra Sound Weeks Gestation 02/01/2024 07/26/2023 07/25/2023 04/27/2023 12 Eighteen To Twenty Week Naresh Update Ultra Sound Date Fundal Height At Umbil Quickening Date Ultra Sound Latest Weeks Gestation Final Naresh Confirmed By Final Naresh Confirmed Date Final Naresh Date Ultra Sound Latest Days Gestation 0 [id number] 08/29/2023 02/01/20 24 0 Pre-anders Flowsheet Flowsheet Date 07/26/2023 Strange Score Blood Edema Fundus Height Fundus Units Glucose Ketones Leukocytes Nitrite Labor Signs Protein Cervic Dilation Cervic Effacement Cervic Station 12 Type Weight in lbs Pre/Post Dialysis Refused Weight 221.363581638128 BP Diastolic BP Location Tested BP Systolic BP Type 91 L arm 152 sitting Fetus Heart Rate Present Fetus Movement Comments Presents to establish prenat al care. Nausea improving, taking zofran PRN. complicated by prediabetes (A1c 5.9%; discussed early 1h GTT) as well as chronic HTN, overall controlled on Procardia XL 30 daily. WIll draw baseline labs today in addition to NIPT and new OB labs. Declines carrier screening. NT/NB wnl on US yesterday. Overall doing well. RTC 4 weeks. Flowsheet Date 08/29/2023 Strange Score Blood Edema Fundus Height Fundus Units Glucose Ketones Leukocytes Nitrite Labor Signs Protein Cervic Dilation Cervic Effacement Cervic Station Type Weight in lbs Pre/Post Dialysis Refused Weight 223.000968932030 BP Diastolic BP Location Tested BP Systolic BP Type 87 134 Fetus Heart Rate Present A 150 Fetus Movement A Yes Comments Doing well, nausea improved. LR male NIPT! All OB labs wnl. A1c 5.6%, would still recommend early 1h GTT at 20 weeks. Continues on Procardia XL 30 daily, feeling well. Baseline labs wnl. Discussed anatomy US next visit. RTC 3-4 weeks. Flowsheet Date 09/07/2023 Strange Score Blood Edema Fundus Height Fundus Units Glucose Ketones Leukocytes Nitrite Labor Signs Protein Cervic Dilation Cervic Effacement Cervic Station Type Weight in lbs Pre/Post Dialysis Refused BP Diastolic BP Location Tested BP Systolic BP Type Fetus Heart Rate Present Fetus Movement Comments Flowsheet Date 09/25/2023 Strange Score Blood Edema Fundus Height Fundus Units Glucose Ketones Leukocytes Nitrite Labor Signs Protein Cervic Dilation Cervic Effacement Cervic Station Type Weight in lbs Pre/Post Dialysis Refused BP Diastolic BP Location Tested BP Systolic BP Type Fetus Heart Rate Present Fetus Movement Comments Flowsheet Date 09/28/2023 Strange Score Blood Edema Fundus Height Fundus Units Glucose Ketones Leukocytes Nitrite Labor Signs Protein Cervic Dilation Cervic Effacement Cervic Station Type Weight in lbs Pre/Post Dialysis Refused Weight 225.260558982379 BP Diastolic BP Location Tested BP Systolic BP Type 95 147 Fetus Heart Rate Present A 150 Fetus Movement A Yes Comments Doing well, baby active. Hav ing some dizziness at work when she doesn't eat regularly. No cramping or bleeding. Some pelvic pain after exerting herself. EFW 65%, anatomy normal. Small EIF seen, explained to patient. Early 3hGTT Today. RTC 4 weeks. Flowsheet Date 10/09/2023 Strange Score Blood Edema Fundus Height Fundus Units Glucose Ketones Leukocytes Nitrite Labor Signs Protein Cervic Dilation Cervic Effacement Cervic Station Type Weight in lbs Pre/Post Dialysis Refused BP Diastolic BP Location Tested BP Systolic BP Type Fetus Heart Rate Present Fetus Movement Comments Flowsheet Date 10/27/2023 Strange Score Blood Edema Fundus Height Fundus Units Glucose Ketones Leukocytes Nitrite Labor Signs Protein Cervic Dilation Cervic Effacement Cervic Station Type Weight in lbs Pre/Post Dialysis Refused BP Diastolic BP Location Tested BP Systolic BP Type Fetus Heart Rate Present Fetus Movement Comments Flowsheet Date 10/27/2023 Strange Score Blood Edema Fundus Height Fundus Units Glucose Ketones Leukocytes Nitrite Labor Signs Protein Cervic Dilation Cervic Effacement Cervic Station Type Weight in lbs Pre/Post Dialysis Refused Weight 218.654098880996 BP Diastolic BP Location Tested BP Systolic BP Type 80 119 Fetus Heart Rate Present A 145 Fetus Movement A Yes Comments Good movement. No cram ping or bleeding. EFW 40%, vertex, normal fluid. EIF no longer seen. Blood glucose levels overall wnl, rare excursions postprandial. Discussed labs for next visit. Mood stable on lexapro. BP well controlled on procardia XL 30 daily. RTC 2 weeks. Flowsheet Date 11/10/2023 Strange Score Blood Edema Fundus Height Fundus Units Glucose Ketones Leukocytes Nitrite Labor Signs Protein Cervic Dilation Cervic Effacement Cervic Station Type Weight in lbs Pre/Post Dialysis Refused Weight 219.622783484627 BP Diastolic BP Location Tested BP Systolic BP Type 79 120 Fetus Heart Rate Present A 140 Fetus Movement A Yes Comments Feeling well, having some in creased pelvic pain after overexerting at work. Discussed pelvic floor PT and belly band. Labs today. Discussed kick counts. Fasting and postprandial blood sugars well within goal. No headaches, vision changes, chest pain, dyspnea, RUQ pain. Good movement, no cramping or bleeding. RTC 2 weeks. Flowsheet Date 11/24/2023 Strange Score Blood Edema Fundus Height Fundus Units Glucose Ketones Leukocytes Nitrite Labor Signs Protein Cervic Dilation Cervic Effacement Cervic Station Type Weight in lbs Pre/Post Dialysis Refused BP Diastolic BP Location Tested BP Systolic BP Type Fetus Heart Rate Present Fetus Movement Comments Flowsheet Date 11/24/2023 Strange Score Blood Edema Fundus Height Fundus Units Glucose Ketones Leukocytes Nitrite Labor Signs Protein Cervic Dilation Cervic Effacement Cervic Station Type Weight in lbs Pre/Post Dialysis Refused Weight 218.034931553371 BP Diastolic BP Location Tested BP Systolic BP Type 89 127 Fetus Heart Rate Present Fetus Movement A Yes Comments Doing well, good movem ent. No cramping or bleeding. Fasting and postprandial blood sugars overall within goal. Growth US today, EFW 80%, normal SABRINA. Discussed weekly testing starting at 32 weeks for cHTN. RTC 2 weeks. Flowsheet Date 12/12/2023 Strange Score Blood Edema Fundus Height Fundus Units Glucose Ketones Leukocytes Nitrite Labor Signs Protein Cervic Dilation Cervic Effacement Cervic Station Type Weight in lbs Pre/Post Dialysis Refused BP Diastolic BP Location Tested BP Systolic BP Type Fetus Heart Rate Present Fetus Movement Comments Flowsheet Date 12/12/2023 Strange Score Blood Edema Fundus Height Fundus Units Glucose Ketones Leukocytes Nitrite Labor Signs Protein Cervic Dilation Cervic Effacement Cervic Station Type Weight in lbs Pre/Post Dialysis Refused BP Diastolic BP Location Tested BP Systolic BP Type Fetus Heart Rate Present Fetus Movement Comments Flowsheet Date 12/12/2023 Strange Score Blood Edema Fundus Height Fundus Units Glucose Ketones Leukocytes Nitrite Labor Signs Protein Cervic Dilation Cervic Effacement Cervic Station Type Weight in lbs Pre/Post Dialysis Refused Weight 216.891533020342 BP Diastolic BP Location Tested BP Systolic BP Type 80 127 Fetus Heart Rate Present A 160 Fetus Movement A Yes Comments Doing well, having some BH c ontractions. Good movement. Preadmission scheduled. DIscussed tdap. BPP 10 today. No s/s of preeclampsia. Glucose well controlled at home. BP controlled. Continue weekly testing. RTC 1 week. Flowsheet Date 12/19/2023 Strange Score Blood Edema Fundus Height Fundus Units Glucose Ketones Leukocytes Nitrite Labor Signs Protein Cervic Dilation Cervic Effacement Cervic Station Type Weight in lbs Pre/Post Dialysis Refused BP Diastolic BP Location Tested BP Systolic BP Type Fetus Heart Rate Present Fetus Movement Comments Flowsheet Date 12/19/2023 Strange Score Blood Edema Fundus Height Fundus Units Glucose Ketones Leukocytes Nitrite Labor Signs Protein Cervic Dilation Cervic Effacement Cervic Station Type Weight in lbs Pre/Post Dialysis Refused BP Diastolic BP Location Tested BP Systolic BP Type Fetus Heart Rate Present Fetus Movement Comments Flowsheet Date 12/19/2023 Strange Score Blood Edema Fundus Height Fundus Units Glucose Ketones Leukocytes Nitrite Labor Signs Protein Cervic Dilation Cervic Effacement Cervic Station Type Weight in lbs Pre/Post Dialysis Refused Weight 215.813309788248 BP Diastolic BP Location Tested BP Systolic BP Type 80 129 Fetus Heart Rate Present Fetus Movement Comments Flowsheet Date 12/22/2023 Strange Score Blood Edema Fundus Height Fundus Units Glucose Ketones Leukocytes Nitrite Labor Signs Protein Cervic Dilation Cervic Effacement Cervic Station Type Weight in lbs Pre/Post Dialysis Refused Weight 217.922557401912 BP Diastolic BP Location Tested BP Systolic BP Type 78 123 Fetus Heart Rate Present A 145 Fetus Movement A Yes Comments Increased cramping. No bleed ing or LOF. Glucose wnl. BP also wnl. EFW 43%, normal SABRINA. BPP 10 yesterday. Preadmission scheduled. Discussed 37 week induction for cHTN on meds. Continue testing. RTC 1 week. Flowsheet Date 12/26/2023 Strange Score Blood Edema Fundus Height Fundus Units Glucose Ketones Leukocytes Nitrite Labor Signs Protein Cervic Dilation Cervic Effacement Cervic Station Type Weight in lbs Pre/Post Dialysis Refused BP Diastolic BP Location Tested BP Systolic BP Type Fetus Heart Rate Present Fetus Movement Comments Flowsheet Date 12/26/2023 Strange Score Blood Edema Fundus Height Fundus Units Glucose Ketones Leukocytes Nitrite Labor Signs Protein Cervic Dilation Cervic Effacement Cervic Station Type Weight in lbs Pre/Post Dialysis Refused BP Diastolic BP Location Tested BP Systolic BP Type Fetus Heart Rate Present Fetus Movement Comments Flowsheet Date 12/26/2023 Strange Score Blood Edema Fundus Height Fundus Units Glucose Ketones Leukocytes Nitrite Labor Signs Protein Cervic Dilation Cervic Effacement Cervic Station Type Weight in lbs Pre/Post Dialysis Refused Weight 214.391014618413 BP Diastolic BP Location Tested BP Systolic BP Type 82 118 Fetus Heart Rate Present A 157 Fetus Movement A Yes Comments Doing well, having mild b/l swelling. Denies headaches, vision changes, chest pain, dyspnea, RUQ pain or epigastric pain. Will plan for induction 01/10 for cHTN on meds. Good movement. No cramping or bleeding. Discussed GBS for next visit. RTC 1 week. Flowsheet Date 01/02/2024 Strange Score Blood Edema Fundus Height Fundus Units Glucose Ketones Leukocytes Nitrite Labor Signs Protein Cervic Dilation Cervic Effacement Cervic Station Type Weight in lbs Pre/Post Dialysis Refused BP Diastolic BP Location Tested BP Systolic BP Type Fetus Heart Rate Present Fetus Movement Comments Flowsheet Date 01/02/2024 Strange Score Blood Edema Fundus Height Fundus Units Glucose Ketones Leukocytes Nitrite Labor Signs Protein Cervic Dilation Cervic Effacement Cervic Station Type Weight in lbs Pre/Post Dialysis Refused BP Diastolic BP Location Tested BP Systolic BP Type Fetus Heart Rate Present Fetus Movement Comments Flowsheet Date 01/02/2024 Strange Score Blood Edema Fundus Height Fundus Units Glucose Ketones Leukocytes Nitrite Labor Signs Protein Cervic Dilation Cervic Effacement Cervic Station trace 1cm 60% -3 Type Weight in lbs Pre/Post Dialysis Refused 214.645759964141 BP Diastolic BP Location Tested BP Systolic BP Type 91 138 Fetus Heart Rate Present Fetus Movement A Yes Comments Good movement. No cram ping or bleeding. Denies headaches, vision changes, chest pain, dyspnea, RUQ pain or epigastric pain. BPP 10/10. GBS collected today. Discussed induction plan for next week. Labor precautions reviewed. RTC 1 week for testing. Flowsheet Date 01/09/2024 Strange Score Blood Edema Fundus Height Fundus Units Glucose Ketones Leukocytes Nitrite Labor Signs Protein Cervic Dilation Cervic Effacement Cervic Station Type Weight in lbs Pre/Post Dialysis Refused BP Diastolic BP Location Tested BP Systolic BP Type Fetus Heart Rate Present Fetus Movement Comments Flowsheet Date 01/09/2024 Strange Score Blood Edema Fundus Height Fundus Units Glucose Ketones Leukocytes Nitrite Labor Signs Protein Cervic Dilation Cervic Effacement Cervic Station Type Weight in lbs Pre/Post Dialysis Refused BP Diastolic BP Location Tested BP Systolic BP Type Fetus Heart Rate Present Fetus Movement Comments Flowsheet Date 01/09/2024 Strange Score Blood Edema Fundus Height Fundus Units Glucose Ketones Leukocytes Nitrite Labor Signs Protein Cervic Dilation Cervic Effacement Cervic Station neg trace none trace Type Weight in lbs Pre/Post Dialysis Refused Weight 213.508337759323 BP Diastolic BP Location Tested BP Systolic BP Type 78 L arm 130 sitting Fetus Heart Rate Present A 140 Fetus Movement A Yes Comments Patient c/o of [place] Curiel , light cramping and swelling in feet. BPP 10/10. Reports falling glucose values, no hypoglycemia episodes. Good movement. No bleeding or LOF. Scheduled for induction . Labor precautions reviewed. Menstrual History Last Menstrual Date Menses Monthly On Bcp Conception Prior Menses Frequency Hcg Plus Date Menarche Onset Age 0104/27/2023 Genetic Screening And Infection History Question Response Note Mental Retardation/Autism false Patient's Age Will Be 35 Years Or Older At Estim ated Date of Delivery false Thalassemia (South African, Vietnamese, Mediterranean, Or Background): MCV < 80 false Neural Tube Defect (Meningomyelocele, Spina Bifi da, Or Anencephaly) false Congenital Heart Defect false Down Syndrome false Rony-Sachs (eg, Jew, Cajun, Lithuanian-[place]) f alse Hellen Disease false Sickle Cell Disease Or Trait () false Hemophilia Or Other Blood Disorders false Muscular Dystrophy false Cystic Fibrosis false Romaine's Chorea false Intellectual Disability/Autism false If Yes, Was Person Tested For Fragile X? false Other Inherited Genetic Or Chromosomal Disorder false Maternal Metabolic Disorder (eg, Type 1 Diabetes , PKU) false Patient Or Baby's Father Had A Child With Defects Not Listed Above false Recurrent Loss, Or A Stillbirth false Medications (including Suppl ements, Vitamins, Herbs, OTC Drugs), Illicit/Recreational Drugs, Alcohol false If Yes, Agent(s) And Strength/Dosage false Any Other Genetic History false Live With Someone With TB Or Exposed To TB false Patient Or Partner Has History Of Genital Herpes false Rash Or Viral Illness Since Last Menstrual Perio d false History Of STD, Gonorrhea, Chlamydia, HPV, Syphi lis false Other Infection History false History of HIV false History of Hepatitis false Prior GBS-infected child false Hemoglobinopathy Or Carrier false Other Structural Defect false Recent Travel History Outside of Country false Delivery Information Delivery Date Delivery Type Labor Anesthesia Weeks Gestation Incision Type Labor Labor Length Hrs Delivered By Post Complications Tubal Sterilization Discharge Date Comments 4 Induce d Regional-Ep idural 37.1 false Leny Augustine MD Chronic hypertens ion in obstetric context,G estationa l diabetes mellitus, Mixed anxiety and depressiv e disorder, Prediabet es Discharge Information Feeding Method Contraceptive Method Maternal HG B and HCT Levels
--- OUTSIDE RECORDS SUMMARY | 2024-08-03 12:01 | XMS_ITS | Clinical Summary ---
Author Organization [facility] [place] Address [address] [place] [address] Care Team Providers Care Health Concierge Name Role Phone No, Physician Primary Care Provider [phone] Allergies No known active allergies Medications famotidine (Pepcid) 20 mg tabletIndicatio ns:Heartburn Take 1 tablet (20 mg total) by mouth nightly as needed for heartburn 30 tablet Active Encounters Date Type Department Care Team Description 06/13/2024 Telephone [facility] [place] [address] [place] [address] Loi Hawley MD 06/01/2024 3:17 PM ADVANCED DEVELOPER - 06/01/2024 4:01 PM [facility] Emergency [facility] [address] [place] [address] Abdominal pain (Primary Dx) Discharge Disposition: Discharge to home or self care from Last 3 Months Social History Tobacco Use Types Packs/Day Years Used Date Smoking Tobacco: Never Assessed Personal Safety Answer Date Recorded Have you ever been in or are you currently in a harmful physical or emotional relationship or is someone making you feel afraid or unsafe? Denies 06/01/2024 Comments Unknown Sex and Gender Information Value Date Recorded Sex Assigned at Not on file Legal Sex Female 9:21 AM ADVANCED DEVELOPER Gender Identity Not on file Sexual Orientation Not on file Last Filed Vital Signs Vital Sign Reading Time Taken Comments Blood Pressure 131/81 06/01/2024 3:06 PM ADVANCED DEVELOPER Pulse 78 06/01/2024 3:06 PM ADVANCED DEVELOPER Temperature 36.9 C (98.4 F) 06/01/2024 12:55 PM ADVANCED DEVELOPER Respiratory Rate 16 06/01/2024 3:06 PM ADVANCED DEVELOPER Oxygen Saturation 100% 06/01/2024 3:06 PM ADVANCED DEVELOPER Inhaled Oxygen Concentration - - Weight 86.2 kg (190 lb) 06/01/2024 12:55 PM ADVANCED DEVELOPER Height 172.7 cm (5' 8 ) 06/01/2024 12:55 PM ADVANCED DEVELOPER Body Mass Index 28.89 06/01/2024 12:55 PM ADVANCED DEVELOPER Plan of Treatment Health Maintenance Due Date Last Done Comments Cervical Cancer Screening 1992 Depression Screening 1992 Hepatitis C Screening 1992 Varicella Vaccines (1 of 2 - 13+ 2-dose series) 2005 Hepatitis B Screening 2010 Regular Well Visit/Exam 18-64 2010 Covid-19 Vaccine (3 - 2023- season) 2023 08/08/2020, 07/15/2020 DTaP/Tdap/Td Vaccine (3 - Td or Tdap) 01/04/2034 01/05/2024, 05/16/2018 Influenza Vaccine Completed 01/09/2024, , 01/18/2021, Additional history exists HPV Vaccines Aged Out No longer eligi ble based on patient's age to complete this topic Pneumococcal vaccine <65 Aged Out No longer eligible based on patient's age to complete this topic Procedures Procedure Name Priority Date/Time Associated Diagnosis Comments POCT HCG, URINE Routine 06/01/2024 1:42 PM ADVANCED DEVELOPER EGFR STAT 06/01/2024 1:30 PM ADVANCED DEVELOPER URINALYSIS, MICROSCOPIC ONLY STAT 06/01/2024 1:30 PM ADVANCED DEVELOPER DIFFERENTIAL AUTO STAT 06/01/2024 1:3 0 PM ADVANCED DEVELOPER LIPASE STAT 06/01/2024 1:30 PM ADVANCED DEVELOPER COMPREHENSIVE METABOLIC PANEL STAT 06/01/2024 1:30 PM ADVANCED DEVELOPER CBC WITH AUTO DIFFERENTIAL STAT 06/01/2024 1:30 PM ADVANCED DEVELOPER URINALYSIS AND REFLEX TO MICROSCOPIC AND CULTURE STAT 06/01/2024 1:30 PM ADVANCED DEVELOPER from Last 3 Months Results * POCT hCG, urine (06/01/2024 1:42 PM ADVANCED DEVELOPER) HCG, ur, POC Negative Negative Lot Number 0 QC Backgroud Clear Acceptable QC Control Line Acceptable Urine 06/01/2024 1:42 PM ADVANCED DEVELOPER Constanza DESAI POINT OF CARE TEST ORDERABLE S Final Result * eGFR (06/01/2024 1:30 PM ADVANCED DEVELOPER) eGFR >90 >=60 mL/min/1. 73 m2 Comment: Interpretive Data Reference Interval Normal >/= 90 mL/min/1.73m2 Mildly decreased* 60 - 89 mL/min/1.73m2 Mildly to moderately decreased 45 - 59 mL/min/1.73m2 Moderately to severely decreased 30 - 44 mL/min/1.73m2 Severely decreased 15 - 29 mL/min/1.73m2 Kidney Failure < 15 mL/min/1.73m2 *Relative to young adult level Estimated glomerular filtration rate is determined by the 2020 CKD-EPI equation recommended by the National Kidney Foundation (A Unifying Approach to GFR Estimation: Recommendations of the NKF-ASK Task Force on Reassessing the Inclusion of Race in Diagnosing Kidney Disease, JASN 2020). The CKD-EPI equation should not be used for patients with unstable renal function and has not been validated in children and those over 70. Current interpretive data was last reviewed 2021. Blood 06/01/2024 1:30 PM ADVANCED DEVELOPER 06/01/2024 1:48 PM ADVANCED DEVELOPER Constanza DESAI LAB BLOOD ORDERABLES Final R esult [facility] [address] [place] [address] * Differential, auto (06/01/2024 1:30 PM ADVANCED DEVELOPER) Pathologist [facility] Neutrophil abs 5.4 1.5 - 6.5 K/cumm Imm gran abs 0.0 0.0 - 0.1 K/cumm [facility] Lymphocyte abs 2.1 0.8 - 3.3 K/cumm [facility] Monocyte abs 0.5 0.2 - 0.8 K/cumm [facility] Eosinophil abs 0.1 0.0 - 0.5 K/cumm [facility] Basophil abs 0.0 0.0 - 0.1 K/cumm [facility] Neutrophil pct 66.7 % [facility] Comment: Interpretive Data Percent cell count reference ranges are not reported, since discordance with absolute values may lead to misinterpretation of CBC data. Current Interpretive Data was last revised on 2017. Imm gran pct 0.2 % [facility] Comment: Interpretive Data Percent cell count reference ranges are not reported, since discordance with absolute values may lead to misinterpretation of CBC data. Current Interpretive Data was last revised on 2017. Lymphocyte pct 26.4 % [facility] Comment: Interpretive Data Percent cell count reference ranges are not reported, since discordance with absolute values may lead to misinterpretation of CBC data. Current Interpretive Data was last revised on 2017. Monocyte pct 5.6 % [facility] Comment: Interpretive Data Percent cell count reference ranges are not reported, since discordance with absolute values may lead to misinterpretation of CBC data. Current Interpretive Data was last revised on 2017. Eosinophil pct 0.9 % [facility] Comment: Interpretive Data Percent cell count reference ranges are not reported, since discordance with absolute values may lead to misinterpretation of CBC data. Current Interpretive Data was last revised on 2017. Basophil pct 0.2 % [facility] Comment: Interpretive Data Percent cell count reference ranges are not reported, since discordance with absolute values may lead to misinterpretation of CBC data. Current Interpretive Data was last revised on 2017. Blood 06/01/2024 1:30 PM ADVANCED DEVELOPER 06/01/2024 1:35 PM ADVANCED DEVELOPER Constanza DESAI LAB BLOOD ORDERABLES Final R esult Performing Organization Address [facility] de Phone Number [facility] [address] [phone] * (ABNORMAL) Urinalysis reflex to microscopic and culture Urine (06/01/2024 1:30 PM ADVANCED DEVELOPER) Color, ur Yellow Yellow Clarity, ur Clear Clear [facility] Specific gravity, ur 1.020 1.003 - 1.030 [facility] pH, urine 7.5 [facility] Comment: Interpretive Data U rine pH is affected by diet, medications, systemic acid-base disturbances, and renal tubular function. pH may affect urinary stone formation. For example, urine pH below 6.0 may help reduce the tendency for calcium phosphate stones and pH greater than 6.0 may reduce the tendency for uric acid stone formation. Source: [facility] Current Interpretive Data was last revised on 2017 Protein, ur ql Negative Negative [facility] Glucose, ur ql Negative Negative [facility] Ketones, ur Negative Negative [facility] Bilirubin, ur Negative Negative [facility] Blood, ur Negative Negative [facility] Urobilinogen, ur <2.0 <2.0 mg/dL [facility] Nitrite, ur Negative Negative [facility] Leukocyte esterase, ur 1+(A) Negative [facility] UA reflex comment Reflex to microscopic UA will be performed. [facility] Urine 06/01/2024 1:30 PM ADVANCED DEVELOPER 06/01/2024 1:35 PM ADVANCED DEVELOPER Constanza DESAI LAB MICROBIOLOGY - GENERAL O RDERABLES Final Result Performing Organization Address [facility] Co de Phone Number [facility] [address] [phone] * (ABNORMAL) CBC with auto differential (06/01/2024 1:30 PM ADVANCED DEVELOPER) WBC 8.1 3.8 - 9.9 K/cumm Hgb 13.7 11.9 - 15.5 g/dL [facility] Hct 42.4 35.6 - 45.5 % [facility] Plt 355 150 - 400 K/cumm [facility] MPV 8.5(L) 9.1 - 12.3 fL [facility] RBC 5.36(H) 3.90 - 5.20 M/cumm [facility] MCV 79.1(L) 81.3 - 96.4 fL [facility] MCH 25.6(L) 27.1 - 33.3 pg [facility] MCHC 32.3 32.3 - 35.7 g/dL [facility] RDW CV 14.6 11.1 - 14.9 % [facility] RDW SD 41.5 35.7 - 48.1 fL [facility] NRBC abs 0.00 0.00 - 0.01 K/cumm [facility] Blood 06/01/2024 1:30 PM ADVANCED DEVELOPER 06/01/2024 1:35 PM ADVANCED DEVELOPER us Constanza DESAI LAB BLOOD ORDERABLES Final R esult Performing Organization Address [facility] de Phone Number [address] [employer] [place], [place] [phone] * (ABNORMAL) Urinalysis, microscopic only (06/01/2024 1:30 PM ADVANCED DEVELOPER) WBC, ur 0-5 0 - 5 /HPF RBC, ur 0-2 0 - 2 /HPF [facility] Epithelial cells, squamous, ur 6-10(A) 0 - 5 /HPF [facility] Comment:Suggestive of contam ination. Consider recollection by clean catch. Mucous, ur Present(A) [facility] Culture Reflex Comment Reflex conditions for urine culture (WBC >10) not met. [facility] Urine 06/01/2024 1:30 PM ADVANCED DEVELOPER 06/01/2024 1:35 PM ADVANCED DEVELOPER Constanza DESAI LAB URINE ORDERABLES Final R esult Performing Organization Address [facility] Co de Phone Number [address] of [employer] [place], [place] [phone] * Lipase (06/01/2024 1:30 PM ADVANCED DEVELOPER) Lipase 50 10 - 99 Units/L Blood 06/01/2024 1:30 PM ADVANCED DEVELOPER 06/01/2024 1:35 PM ADVANCED DEVELOPER us Constanza DESAI LAB BLOOD ORDERABLES Final R esult [facility] [address] [place] [address] * (ABNORMAL) Comprehensive metabolic panel (06/01/2024 1:30 PM ADVANCED DEVELOPER) [facility] Sodium 142 135 - 145 mmol/L Potassium, pl 3.8 3.3 - 4.9 mmol/L [facility] Chloride 100 97 - 110 mmol/L [facility] CO2 31 22 - 32 mmol/L [facility] Anion gap 11 2 - 15 mmol/L [facility] BUN 14 6 - 25 mg/dL [facility] Creatinine 0.58(L) 0.60 - 1.10 mg/dL [facility] Glucose 91 70 - 199 mg/dL [facility] Comment: Interpretive Data Fasting glucose >/= 126 mg/dl is diagnostic for diabetes. Fasting is defined as no caloric intake for at least 8 hours. Fasting glucose between 100 mg/dl to 125 mg/dl is diagnostic of prediabetes. In a patient with classic symptoms of hyperglycemia or hyperglycemic crisis, a random glucose >/= 200 mg/dl is diagnostic for diabetes. In the absence of unequivocal hyperglycemia, results should be confirmed by repeat testing. The classification and Diagnosis of Diabetes Diabetes Care 2021; 46: S19-S40. Current interpretive data was last revised 2022. Calcium 10.6(H) 8.5 - 10.3 mg/dL [facility] Bilirubin, total 0.3 0.1 - 1.2 mg/dL [facility] Protein, pl 8.4 6.5 - 8.5 g/dL [facility] Albumin 4.7 3.5 - 5.0 g/dL [facility] Alk phos 139(H) 40 - 130 Units/L [facility] ALT 29 7 - 45 Units/L [facility] AST 32 10 - 45 Units/L [facility] Blood 06/01/2024 1:30 PM ADVANCED DEVELOPER 06/01/2024 1:35 PM ADVANCED DEVELOPER us Constanza DESAI LAB BLOOD ORDERABLES Final R esult [facility] [address] [place] [address] from Last 3 Months Insurance [employer] Care Teams Health Concierge Relationship Specialty Start Date End Date No, Physician PCP - General 06/01/24
--- OUTSIDE RECORDS SUMMARY | 2024-08-03 12:01 | XMS_ITS | Clinical Summary ---
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 Gender Identity Not on file Sexual Orientation Not on file Plan of Treatment Health Maintenance Due Date Last Done Comments Hepatitis C Virus (HCV) Screening 1992 TdaP Immunization 1992 Hepatitis B Immunization (1 of 3 - 19+ 3-dose series) 12/22/2011 Influenza Immunization (#1) 2023 SARS-COV-2 Immunization ( - season) 2023 Respiratory Syncytial Virus (RSV) Immunization (Adult) (1 - 1-dose 75+ series) 12/22/2067 Meningococcal Immunization (ACWY) Aged Out No longer eligible based on patient's age to complete this topic Pneumococcal Immunization Combined Aged Out No longer eligible based on patient's age to complete this topic Rotavirus Immunization Aged Out No lo nger eligible based on patient's age to complete this topic
--- OUTSIDE RECORDS SUMMARY | 2024-08-03 12:01 | XMS_ITS | Data Portability ---
Author Organization [employer] , [facility] Address [address] [place] [address] Assessment No assessment recorded. Plan of Treatment Reminders Order Date Submit Date Provider Last Modified By Organization Details Last Modified Time Details Appointments None recorded. Lab pap, LB 2021 022 [facility], [address] [place], [address], 15:19:59 unlisted lab - Pap reflex hold 2021 022 [employer] [facility], [address] [place], [address], 11:32:26 Referral None recorded. Procedures None recorded. Surgeries None recorded. Imaging None recorded. Medication Orders None recorded. Patient TargetsNo targets recorded. Patient InstructionsNo instructions recorded. Reason for Referral None Reported. Results Created Date Observation Date Name Description Value Unit Range Abnormal Flag Note LastModifiedBy Organization Detail LastModifiedTime 10/14/1910/18/2021 PAP REFLE X HOLD Pap reflex hold Receiv ed receiv ed Not Available [employer] [address] [place], [address], 10/18/2021 11:32:25 10/15/1910/20/2021 THINP REP TIS PAP clinical information: normal Infor matio n not provi ded Not Available [employer] [facility] [address], [place], [address], 10/20/2021 15:19:59 10/15/1910/20/2021 THINP REP TIS PAP LMP: normal NONE GIVEN Not Available [address] [address] [place], [address], 10/20/2021 15:19:59 10/15/19 22 10/20/2021 THINP REP TIS PAP prev. Pap: normal NONE GIVEN Not Available [address] [address] [place], [address], 10/20/2021 15:19:59 10/15/19 22 10/20/2021 THINP REP TIS PAP prev. BX: normal NONE GIVEN Not Available [address] [place], [address], 10/20/2021 15:19:59 10/15/19 22 10/20/2021 THINP REP TIS PAP source: normal Cervi x, Endoc ervix Not Available [address] [place], [address], 10/20/2021 15:19:59 10/15/19 22 10/20/2021 THINP REP TIS PAP statement of adequacy: normal Satis facto ry for evalu ation . Endoc ervic al/tr ansfo rmati on zone compo nent prese nt. Age and/o r menst rual statu s not provi ded Not Available [address] [place], [address], 10/20/2021 15:19:59 10/15/19 22 10/20/2021 THINP REP TIS PAP interpretati on/result: normal Negat elaine for intra epith elial lesio n or malig siria . Not Available [address] [place], [address], 10/20/2021 15:19:59 10/15/19 22 10/20/2021 THINP REP TIS PAP comment: normal This Pap test has been evalu ated with compu ter arben [employer] . Not Available [address] [address] [place], [address], 10/20/2021 15:19:59 10/15/19 22 10/20/2021 THINP REP TIS PAP cytotechnolo gist: normal AMW, CT( CP) CT [place] locat ion: [address] [address] [place] [address] Not Available [employer] [address] [address] [place], [address], 10/20/2021 15:19:59 10/15/19 22 10/20/2021 THINP REP TIS PAP comment EXPLA NATOR Y NOTE: The Pap is a scree chico test for cervi malaika cance r. It is not a diagn ostic test and is subje ct to false negat elaine and false posit elaine resul ts. It is most relia ble when a satis facto ry sampl e, regul rey obtai deirdre, is submi tted with relev ant clini malaika findi ngs and histo ry, and when the Pap resul t is evalu ated along with histo johanna and curre nt clini malaika infor matio n. Not Available [employer] [address] [address] [place], [address], 10/20/2021 15:19:59 Result Notes None recorded. Problems Name Problem SNOMED Code Status Onset Date Resolution Date Notes Provider Name and Address Organization Details Recorded Time Generali zed anxiety disorder 71038331 Active 2014 Anxiety; Location : None Progress : Stable Added By: Constanza Kearns Add to Current Problems : NO ProblemS tatus: Current Not Available [employer] 2 21:58:21 Single major depressi ve episode Active 2012 Depressi on; Progress : Stable Added By: Jessica Morris Add to Current Problems : YES ProblemS tatus: Current Not Available [employer] 2 21:58:22 Dysmenor raheem 625584180 Completed 201403/09/2015 Dysmenor raheem; Location : None Severity : Moderate Progress : Stable Added By: Luda Dennis Add to Current Problems : YES ProblemS tatus: Resolve Dysmenor raheem; Location : None Severity : Moderate Progress : Stable Added By: Rhiannon Turner Add to Current Problems : YES ProblemS tatus: Current; Start Date : 11/27/19 15 Not Available [facility] 1 02:56:21 Female genital organ symptoms 020021673 Active 2014 Female pelvic pain; Progress : Stable Added By: Tami Álvarez Add to Current Problems : YES ProblemS tatus: Current pelvic pain; Progress : Stable Added By: Constanza Kearns Add to Current Problems : NO ProblemS tatus: Resolve; Start Date : 06/27/19 15 Not Available [facility] 2 21:58:21 Pain in female genitali a Completed 201403/09/2015 Dysmenor raheem, unspecif ied; Progress : Stable Added By: Luda Dennis Add to Current Problems : NO ProblemS tatus: Resolve Not Available [facility] 2 21:58:21 Contrace ptive usage NOS Completed 201408/25/2014 Initiati on of other contrace ptive measures ; Location : None Severity : Moderate Progress : Stable Added By: Sarah Gallardo Add to Current Problems : NO ProblemS tatus: Resolve Not Available [facility] 1 02:56:22 Depressi ve disorder 32553429 Active 2014 Depressi on; Location : None Progress : Stable Added By: Constanza Kearns Add to Current Problems : YES ProblemS tatus: Current Not Available [facility] 2 21:58:21 Dysmenor raheem 536842341 Active 2014 Dysmenor raheem; Location : None Progress : Stable Added By: Rhiannon Turner Add to Current Problems : YES ProblemS tatus: Current Dysmenor raheem; Progress : Stable Added By: Luda Dennis Add to Current Problems : NO ProblemS tatus: Resolve Dysmenor raheem; Location : None Progress : Stable Added By: Constanza Kearns Add to Current Problems : NO ProblemS tatus: Resolve; Start Date : 05/16/19 13 Not Available [facility] 2 21:58:21 Notes:Initiation of other co ntraceptive measures (V25.02) ; OnsetDate: 06/26/2014; ResolvedDate: 08/25/2014; Location: None Progress: Stable Added By: Sarah Gallardo Add to Current Problems: NO ProblemStatus: Resolve Problem Notes None recorded. Procedures Surgical History Date Name Laterality Status Provider Name and Address Organization Details Recorded Time 08/23/2015 Date of Last Pap Smear completed Yuliana Crawford [facility] 10/13/2021 17:08:35 Imaging Results None recorded. Procedure Notes None recorded. Medical Equipment None Reported. Allergies Allergen ID Allergen Name Allergen Category Reaction Reaction Severity Criticality Documentation Date Start Date Code Code System Note Provider Name and Address Organization Details Recorded Time 473630 Non-stero idal anti-infl ammatory agent (product) medicatio n Not available Not available Not available 02/12/20212014 22524 005 SNOMED Sever ity: Moder ate; Not Available Not Available Not Available 104400 Tamiflu medicatio n Not available Not available Not available 02/12/20212012 11984 7 RxNorm Sever ity: Moder ate; Not Available Not Available Not Available 967600 pineapple allergeni c extract food,medi cation Not available Not available Not available 02/12/20212014 27743 5 RxNorm Sever ity: Moder ate; Not Available Not Available Not Available 770914 doxycycli ne Not available Not available Not available Not available 02/12/20212012 3640 RxNorm Sever ity: Moder ate; Not Available Not Available Not Available 522139 mold extract environme nt Not available Not available Not available 10/13/2021 18590 8 RxNorm Not Available Not Available Not Available Medications Name Sig Start Date Stop Date Status Note LastModified by Organization Details LastModified Time Zoloft 25 mg tablet Take 1 tablet(s ) by mouth daily 12/31 completed Zoloft 25mg Tablet RxNorm: 407449 Allow Substitu tion: True Refill Denied: No For Problem: Anxiety Not Available Not Available Not Available [place] 5 mg-325 mg tablet 1 po q 4 to 6 hrs prn pain 03/01 completed [place] 5mg/325m g Tablet RxNorm: 257993 Allow Substitu tion: True Refill Denied: No Not Available Not Available Not Available NuvaRing 0.12 mg-0.015 mg/24 hr vaginal insert new ring q 3 weeks as directed by irineo nielsen 07/06 completed NuvaRing 0.015mg/ 0.12mg Vaginal Ring RxNorm: 5245916 Allow Substitu tion: True Refill Denied: No Not Available Not Available Not Available Lexapro 20 mg tablet Take 1 tablet every day by oral route. active Not Available Not Available No t Available glycopyrr olate active Not Available Not Available Not Available Benadryl 10/13 completed Benadryl RxNorm: 013444 Allow Substitu tion: True Refill Denied: No Refill DateOccu rred: 05/16/19 13 Not Available Not Available Not Available Lexapro 10/13 completed Lexapro 5mg Tablet RxNorm: 318044 Allow Substitu tion: True Refill Denied: No Refill DateOccu rred: 05/16/19 13 Not Available Not Available Not Available Lo Loestrin Fe 1 mg-10 mcg (24)/10 mcg (2) tablet 1 tab PO daily 11/26 completed Lo Loestrin Fe Biphasic Tablet Allow Substitu tion: True Refill Denied: No Refill DateOccu rred: 06/27/19 15 For Problem: Initiati on of other contrace ptive measures Not Available Not Available Not Available Vitals Date Recorded Body height Body mass index (BMI) Body weight Systolic blood pressure Diastolic blood pressure Provider Name and Address Organization Details Last Updated DateTime 10/13/2021 172.72 cm 32.5 kg/m2 99145.77 g 126 mm[Hg] 82 mm[Hg] Yuliana Crawford [employer] [facility] 17:24:02 Social History Question Answer Notes LastModified by Organizat ion Details LastModified Time Tobacco Smoking Status Never Smoker Yuliana voss [facility] [facility] 10/13/2021 17:08:44 What Is Your Level Of Alcohol Consumption? Occasional Information not available 10/13/2021 How Many Years Have You Consumed Alcohol? 6 [email or web address] Information not available 10/13/2021 Are You Blind Or Do You Have Difficulty Seeing? No [email or web address] Information not available 10/13/2021 Are You Deaf Or Do You Have Serious Difficulty Hearing? No [email or web address] Information not available 10/13/2021 What Type Of Diet Are You Following? REGULAR Information not available 10/13/2021 Which Illicit Or Recreational Drugs Have You Used? Marijuana [email or web address] Information not available 10/13/2021 Do You Or Have You Ever Used E-cigarettes Or Vape? Current User Of Electronic Cigarettes [email or web address] Information not available 10/13/2021 What Is Your Relationship Status? Information not available 10/13/2021 Are You Sexually Active? Yes [email or web address] Information not available 10/13/2021 Sex: Unknown Functional Status Question Answer Note LastModified by Organization D etails LastModified Time What is your exercise level? Moderate Information not available 10/13/2021 Mental Status None recorded. Family History Relationship Description Onset Age of this Age Resolved Age Notes LastModified by Organization Details LastModified Time Paternal Grandfather Hypertensive disorder [email or web address] Not available 10/13 17:08:29 Paternal Grandfather Hypercholest [email or web address] Not available 10/13 17:08:29 Paternal Grandfather Diabetes mellitus [email or web address] Not available 10/13 17:08:29 Maternal Grandmother Malignant neoplastic disease [email or web address] Not available 10/13 17:08:29 Mother Endometriosi s (clinical) [email or web address] Not available 17:08:29 Mother Hypercholest erolemia [email or web address] Not available 10/13 17:08:29 Father Diabetes mellitus [email or web address] Not available 10/13 17:08:29 Father Hypercholest erolemia [email or web address] Not available 10/13 17:08:29 Father Hypertensive disorder [email or web address] Not available 10/13 17:08:29 Paternal Grandmother Heart disease [email or web address] Not available 10/13 17:08:29 Paternal Grandmother Myocardial infarction [email or web address] Not available 09/23 17:08:29 Paternal Grandmother Hypertensive disorder [email or web address] Not available 10/13 17:08:29 Paternal Grandmother Hypercholest erolemia [id number] Not available 10/13 17:08:29 Medical History Condition Response Anxiety Disorder Y Depression Y Seasonal allergies Y Gynecological History Statement/Question Response Flow Heavy Date of LMP 09/23/2021 Frequency of Cycle (Q days) 28 days Date of Last Pap Smear 08/23/2015 Duration of Flow (days) 8 days Current Control Method Seeking Pre gnancy Age at Menarche 12 Obstetrics History GPAL:G 0 P 0 0 0 0 Past Encounters Encounter ID Performer Location Encounter Start Date Encounter Closed Date Diagnosis/Indication Diagnosis SNOMED-CT Code Diagnosis ICD10 Code Diagnosis Note [id number] Blessing Pollock is, [facility] [address] [place] [address] 10/13/2021 17:05:15 10/13/2021 18:05:33 Screening for malignant neoplasm of cervix 154966577 Z12.4 Fertility education 2685 36167 Z31.62 Discussed PNV, timing of cycle and timed intercours e Health Concerns Section Related Observation LastModified by Organization Detai ls LastModified Time None Recorded Concern Status LastModified by Organization Details LastModified Time None Recorded Advance Directives Directive None Recorded Payers Encounter Date Sequence Insurance Name Policy Number Policy Moran Covered Member ID Moran Member ID Guarantor Name 10/13/2021 1 [facility] Joe Harris [id number] Joe Harris Notes Date Note Type Note Provider Name and Address Organization Details Recorded Time 10/13/2021 text/html Here today for annual exam, would like to become Blessing Meeks CNM [address] [facility], [place], [address], [facility] [employer] 10/13/2021 17:42:53 OBGyn Episode No OBEpisode recorded.
--- OUTSIDE RECORDS SUMMARY | 2024-08-03 12:01 | XMS_ITS | Clinical Summary ---
Author Organization [facility] [employer] [facility] Address [address] [place] [address] Care Team Providers Care Surveyor Rod Helper Name Role Phone Unavailable Primary Care Provider Unavailabl e Allergies Active Allergy Reactions Criticality Noted Date Comments Doxycycline Unknown,Other (See Comments) 05/16/2012 Mold Unknown 02/15/2022 Nsaids (Non-Steroidal Anti-Inflammatory Drug) Unknown 10/30/2014 Oseltamivir Unknown 05/16/2012 Pineapple Unknown 10/30/2014 Sertraline Other (See Comments) 03/20/2019 Mood swings Medications SUMAtriptan (IMITREX) 100 mg tabletIndication s:Intractable migraine without aura and with status migrainosus Take 1 Tablet (100 mg) by mouth see administration instructions. may repeat in 2 hours; max dose 200mg in 24 hours 9 Tablet 03/11/20 22 Active 25/iron fum/folic/dha (-1 ORAL) 03/11/20 22 Active NIFEdipine (PROCARDIA XL) 30 mg Extended Release 24 hour tabletIndication s:Chronic hypertension in obstetric context in third trimester Take 1 Tablet by mouth daily. Active aspirin (CONNOR CHEWABLE) 81 mg Tablet, Chewable Take 81 mg by mouth daily. Active doxylamine succinate (UNISOM, DOXYLAMINE, ORAL) Active ferrous sulfate 325 mg (65 mg iron) tablet Take 325 mg by mouth daily. Active esomeprazole (NexIUM) 40 mg Capsule, Delayed Release(E.C.)Ind ications:Dyspeps ia Take 1 Capsule (40 mg) by mouth daily before breakfast. 30 Capsule 06/14/19 25 Active escitalopram oxalate (LEXAPRO) 20 mg tabletIndication s:Situational mixed anxiety and depressive disorder Take 1 Tablet (20 mg) by mouth daily. 90 Tablet 06/14/19 25 Active Active Problems Problem Noted Date Diagnosed Date Gestational diabetes mellitus 01/05/2024 Overview (01/05/2024): 1 abnormal level checking bs [id number]- Ruled in GDM diet cont 10/04 - BS QID & serial growth Chronic hypertension in obstetric context 2023 Overview (01/05/2024): Procardia XL 30 daily, bASA; baseline labs ordered 07/25; 32 week testing; induction 37 weeks 07/26/2023 Miscarriage 11/28/2022 Scoliosis 10/22/2020 Dysmenorrhea 11/26/2014 Generalized anxiety disorder 11/26/2014 Overview (11/29/2022): Anxiety; Location: None Progress: Stable Added By: Constanza Kearns Add to Current Problems: NO ProblemStatus: Current Pain of female genitalia 10/30/2014 Overview (11/29/2022): Female pelvic pain; Progress: Stable Added By: Tami Álvarez Add to Current Problems: YES ProblemStatus: Current pelvic pain; Progress: Stable Added By: Constanza Kearns Add to Current Problems: NO ProblemStatus: Resolve; Start Date : 06/26/2014 Dysmenorrhea, unspecified; Progress: Stable Added By: Luda Dennis Add to Current Problems: NO ProblemStatus: Resolve Depressive disorder 06/25/2014 Overview (11/29/2022): Depression; Location: None Progress: Stable Added By: Constanza Kearns Add to Current Problems: YES ProblemStatus: Current Encounters Date Type Department Care Team Description 07/23/2024 External Device Data ST[facility] ABSTRACTION Provider, Abstract 07/05/2024 Telephone [facility] [address] [place] [address] Lisa Szymanski, ANP [facility] Surgeon 06/29/2024 External Device Data [facility] ABSTRACTION Provider, Abstract 06/28/2024 External Device Data [facility] ABSTRACTION Provider, Abstract 06/28/2024 Results Follow-Up [facility] [address] [place] [address] Araseli Black MD ABDOMEN LIMITED 06/28/2024 Orders Only [facility] [address] [place] [address] Mara Romero Dyspepsia 06/25/2024 External Device Data ST[facility] ABSTRACTION Provider, Abstract 06/14/2024 2:00 PM [employer] Office Visit [facility] [place] [address] [place] [place] [address] Araseli Black MD Dyspepsia (Primary Dx); Situational mixed anxiety and depressive disorder 06/11/2024 External Device Data [facility] ABSTRACTION Provider, Abstract 05/16/2024 External Device Data [facility] ABSTRACTION Provider, Abstract 05/15/2024 External Device Data [facility] ABSTRACTION Provider, Abstract 05/14/2024 External Device Data [facility] ABSTRACTION Provider, Abstract from Last 3 Months Immunizations Immunization Administration Dates Next Due (ADACEL/BOOSTRIX)(10 YR UP) TDAP VACCINE, 0.5ML, IM 01/05/2024 INFLUENZA VACCINE QUADRIVALE NT 6 MOS UP PF IM 03/11/2022,01/18/2021,02/29/2020 Influenza Seasonal Unspecifi ed Formulation IM 01/09/2020 Family History Medical History Relation Name Comments Depression Father Yang Diabetes Father Yang Hypertension Father Yang Anxiety Maternal Grandfather Cancer Maternal Grandmother Dione Pancreatic Cancer Maternal Grandmother Dione Depression Mother Shyanne Hypertension Mother Shyanne Liver Disease Mother Shyanne Osteoporosis Mother Shyanne Other Mother Shyanne Lupus SLE Mother Shyanne Anxiety Paternal Grandfather Art Depression Paternal Grandfather Art Diabetes Paternal Grandfather Art Heart Failure Paternal Grandfather Art Hypertension Paternal Grandfather Art Anxiety Paternal Grandmother Collin Depression Paternal Grandmother Collin Diabetes Paternal Grandmother Jowill Heart Attack Paternal Grandmother Jowill Heart Disease Paternal Grandmother Jowill Hypertension Paternal Grandmother Collin Relation Name Status Comments Father Yang Alive Maternal Grandfather Alive Maternal Grandmother Dione Mother Shyanne Alive Paternal Grandfather Art Paternal Grandmother Collin Social History Tobacco Use Types Packs/Day Years Used Date Smoking Tobacco: Never Smokeless Tobacco: Never Tobacco Cessation:Counseling Given: Not Answered Alcohol Use Standard Drinks/Week Comments Not Currently 1 (1 standard drink = 0.6 oz pur e alcohol) Comments No Sex and Gender Information Value Date Recorded Sex Assigned at Female 01/05/2024 10:25 AM CDT Legal Sex Female 1:41 PM [employer] Gender Identity Female 01/05/2024 10:25 AM CDT Sexual Orientation Straight 01/05/2024 10 :25 AM CDT Last Filed Vital Signs Vital Sign Reading Time Taken Comments Blood Pressure 122/84 06/14/2024 2:04 PM [employer] Pulse 84 06/14/2024 2:04 PM [employer] Temperature 36.7 C (98.1 F) 01/05/2024 1:28 PM CDT Respiratory Rate 18 06/14/2024 2:04 PM [employer] Oxygen Saturation 98% 06/14/2024 2:04 PM [employer] Inhaled Oxygen Concentration - - Weight 89.4 kg (197 lb 3.2 oz) 06/14/2024 2:04 P M [employer] Height 172.7 cm (5' 8 ) 06/14/2024 2:04 PM [employer] Body Mass Index 29.98 06/14/2024 2:04 PM [employer] Plan of Treatment Health Maintenance Due Date Last Done Comments HEPATITIS B VACCINES (1 of 3 - 19+ 3-dose series) 12/22/2011 HPV/Cotest (21-29) 2013 HPV/Cotest (30-65) 2022 INFLUENZA VACCINE (#1) 2023 2, 01/18/2021, 02/29/2020, Additional history exists CERVICAL CANCER SCREENING 10/22/2024 PAP SMEAR 10/22/2024 10/22/2021 (Prev iously completed) DTAP/TDAP/TD VACCINES (2 - Td or Tdap) 01/04/2034 01/05/2024 HPV VACCINES Aged Out No longer eligi ble based on patient's age to complete this topic Procedures Procedure Name Priority Date/Time Associated Diagnosis Comments US ABDOMEN LIMITED Routine 06/21/2024 Dyspepsia from Last 3 Months Results * US ABDOMEN LIMITED (06/21/2024) Anatomical Region Laterality Modality Abdomen Ultrasound us Araseli Black MD US ORDERABLES Final Result from Last 3 Months Insurance ALLEGIANCE OPEN ACCESS
--- OUTSIDE RECORDS SUMMARY | 2024-08-03 12:01 | XMS_ITS | Referral Summary ---
Author Organization [facility] Address [address] [place] [address] Care Team Providers Care Investigations Chief Name Role Phone No, Physician Primary Care Provider [phone] Encounters Date Type Department Care Team Description 06/13/2024 Telephone [facility] Medical Group Gastroenterology at [place] [address] [place] [address] Loi Hawley MD 06/01/2024 3:17 PM DINKEY ENGINE FIRER - 06/01/2024 4:01 PM DINKEY ENGINE FIRER Emergency [facility] [address] [place], [place] [id number] Abdominal pain (Primary Dx) Discharge Disposition: Discharge to home or self care from Last 3 Months Allergies No known active allergies Medications famotidine (Pepcid) 20 mg tabletIndicatio ns:Heartburn Take 1 tablet (20 mg total) by mouth nightly as needed for heartburn 30 tablet Active Social History Tobacco Use Types Packs/Day [...] on file Legal Sex Female 9:21 AM DINKEY ENGINE FIRER Gender Identity Not on file Sexual Orientation Not on file Last Filed Vital Signs Vital Sign Reading Time Taken Comments Blood Pressure 131/81 06/01/2024 3:06 PM DINKEY ENGINE FIRER Pulse 78 06/01/2024 3:06 PM DINKEY ENGINE FIRER Temperature 36.9 C (98.4 F) 06/01/2024 12:55 PM DINKEY ENGINE FIRER Respiratory Rate 16 06/01/2024 3:06 PM DINKEY ENGINE FIRER Oxygen Saturation 100% 06/01/2024 3:06 PM DINKEY ENGINE FIRER Inhaled Oxygen Concentration - - Weight 86.2 kg (190 lb) 06/01/2024 12:55 PM DINKEY ENGINE FIRER Height 172.7 cm (5' 8 ) 06/01/2024 12:55 PM DINKEY ENGINE FIRER Body Mass Index 28.89 06/01/2024 12:55 PM DINKEY ENGINE FIRER Plan of Treatment Not on file Procedures Procedure Name Priority Date/Time Associated Diagnosis Comments POCT HCG, URINE Routine 06/01/2024 1:42 PM DINKEY ENGINE FIRER EGFR STAT 06/01/2024 1:30 PM DINKEY ENGINE FIRER URINALYSIS, MICROSCOPIC ONLY STAT 06/01/2024 1:30 PM DINKEY ENGINE FIRER DIFFERENTIAL AUTO STAT 06/01/2024 1:3 0 PM DINKEY ENGINE FIRER LIPASE STAT 06/01/2024 1:30 PM DINKEY ENGINE FIRER COMPREHENSIVE METABOLIC PANEL STAT 06/01/2024 1:30 PM DINKEY ENGINE FIRER CBC WITH AUTO DIFFERENTIAL STAT 06/01/2024 1:30 PM DINKEY ENGINE FIRER URINALYSIS AND REFLEX TO MICROSCOPIC AND CULTURE STAT 06/01/2024 1:30 PM DINKEY ENGINE FIRER from Last 3 Months Results * POCT hCG, urine (06/01/2024 1:42 PM DINKEY ENGINE FIRER) HCG, ur, POC Negative Negative Lot Number 0 QC Backgroud Clear Acceptable QC Control Line Acceptable Urine 06/01/2024 1:42 PM DINKEY ENGINE FIRER us Constanza DESAI POINT OF CARE TEST ORDERABLE S Final Result * eGFR (06/01/2024 1:30 PM DINKEY ENGINE FIRER) Pathologist [facility] eGFR >90 >=60 mL/min/1. 73 m2 Comment: [...] of Race in Diagnosing Kidney Disease, JASN 202). The CKD-EPI equation should not be used for patients with unstable renal function and has not been validated in children and those over 70. Current interpretive data was last reviewed 2021. Blood 06/01/2024 1:30 PM DINKEY ENGINE FIRER 06/01/2024 1:48 PM DINKEY ENGINE FIRER us Constanza DESAI LAB BLOOD ORDERABLES Final R esult [place] [id number] Department [place] [address] * Differential, auto (06/01/2024 1:30 PM DINKEY ENGINE FIRER) Pathologist [facility] Neutrophil abs 5.4 1.5 - 6.5 K/cumm Imm gran abs 0.0 0.0 - 0.1 K/cumm [facility] Lymphocyte abs 2.1 0.8 - 3.3 K/cumm [facility] Monocyte abs 0.5 0.2 - 0.8 K/cumm [facility] Eosinophil abs 0.1 0.0 - 0.5 K/cumm [facility] Basophil abs 0.0 0.0 - 0.1 K/cumm [facility] Neutrophil pct 66.7 % [facility] Comment: Interpretive Data Percent cell count reference ranges are not reported, since discordance with absolute values may lead to misinterpretation of CBC data. Current Interpretive Data was last revised on 2017. Imm gran pct 0.2 % [facility] Comment: Interpretive Data Percent cell count reference ranges are not reported, since discordance with absolute values may lead to misinterpretation of CBC data. Current Interpretive Data was last revised on 2017. Lymphocyte pct 26.4 % [facility] Comment: Interpretive Data Percent cell count reference ranges are not reported, since discordance with absolute values may lead to misinterpretation of CBC data. Current Interpretive Data was last revised on 2017. Monocyte pct 5.6 % [facility] Comment: Interpretive Data Percent cell count reference ranges are not reported, since discordance with absolute values may lead to misinterpretation of CBC data. Current Interpretive Data was last revised on 2017. Eosinophil pct 0.9 % [facility] Comment: Interpretive Data Percent cell count reference ranges are not reported, since discordance with absolute values may lead to misinterpretation of CBC data. Current Interpretive Data was last revised on 2017. Basophil pct 0.2 % [facility] Comment: Interpretive Data Percent cell count reference ranges are not reported, since discordance with absolute values may lead to misinterpretation of CBC data. Current Interpretive Data was last revised on 2017. Blood 06/01/2024 1:30 PM DINKEY ENGINE FIRER 06/01/2024 1:35 PM DINKEY ENGINE FIRER Constanza DESAI LAB BLOOD ORDERABLES Final R esult [facility] [address] Department [place] [address] * (ABNORMAL) Urinalysis reflex to microscopic and culture Urine (06/01/2024 1:30 PM DINKEY ENGINE FIRER) Color, ur Yellow Yellow Clarity, ur Clear Clear [facility] Specific gravity, ur 1.020 1.003 - 1.030 [facility] pH, urine 7.5 [facility] Comment: Interpretive Data U rine pH is affected by diet, medications, systemic acid-base disturbances, and renal tubular function. pH may affect urinary stone formation. For example, urine pH below 6.0 may help reduce the tendency for calcium phosphate stones and pH greater than 6.0 may reduce the tendency for uric acid stone formation. Source: [facility] Current Interpretive Data was last revised on 2017 Protein, ur ql Negative Negative [facility] Glucose, ur ql Negative Negative [facility] Ketones, ur Negative Negative [facility] Bilirubin, ur Negative Negative [facility] Blood, ur Negative Negative [facility] Urobilinogen, ur <2.0 <2.0 mg/dL [facility] Nitrite, ur Negative Negative [facility] Leukocyte esterase, ur 1+(A) Negative [facility] UA reflex comment Reflex to microscopic UA will be performed. [facility] Urine 06/01/2024 1:30 PM DINKEY ENGINE FIRER 06/01/2024 1:35 PM DINKEY ENGINE FIRER us Constanza DESAI LAB MICROBIOLOGY - GENERAL O RDERABLES Final Result [facility] [address] Department [place] [address] * (ABNORMAL) CBC with auto differential (06/01/2024 1:30 PM DINKEY ENGINE FIRER) WBC 8.1 3.8 - 9.9 K/cumm Hgb 13.7 11.9 - 15.5 g/dL [facility] Hct 42.4 35.6 - 45.5 % [facility] Plt 355 150 - 400 K/cumm [facility] MPV 8.5(L) 9.1 - 12.3 fL [facility] RBC 5.36(H) 3.90 - 5.20 M/cumm [facility] MCV 79.1(L) 81.3 - 96.4 fL [facility] MCH 25.6(L) 27.1 - 33.3 pg [facility] MCHC 32.3 32.3 - 35.7 g/dL [facility] RDW CV 14.6 11.1 - 14.9 % [facility] RDW SD 41.5 35.7 - 48.1 fL [facility] NRBC abs 0.00 0.00 - 0.01 K/cumm [facility] Blood 06/01/2024 1:30 PM DINKEY ENGINE FIRER 06/01/2024 1:35 PM DINKEY ENGINE FIRER us Constanza DESAI LAB BLOOD ORDERABLES Final R esult Performing Organization Address [facility] de Phone Number VENUS [address] [address] * (ABNORMAL) Urinalysis, microscopic only (06/01/2024 1:30 PM DINKEY ENGINE FIRER) [facility] WBC, ur 0-5 0 - 5 /HPF RBC, ur 0-2 0 - 2 /HPF [facility] Epithelial cells, squamous, ur 6-10(A) 0 - 5 /HPF [facility] Comment:Suggestive of contam ination. Consider recollection by clean catch. Mucous, ur Present(A) [facility] Culture Reflex Comment Reflex conditions for urine culture (WBC >10) not met. [facility] Urine 06/01/2024 1:30 PM DINKEY ENGINE FIRER 06/01/2024 1:35 PM DINKEY ENGINE FIRER Constanza DESAI LAB URINE ORDERABLES Final R esult Performing Organization Address [facility] de Phone Number [address] [place] [place] [address] * Lipase (06/01/2024 1:30 PM DINKEY ENGINE FIRER) [facility] Lipase 50 10 - 99 Units/L Blood 06/01/2024 1:30 PM DINKEY ENGINE FIRER 06/01/2024 1:35 PM DINKEY ENGINE FIRER Constanza DESAI LAB BLOOD ORDERABLES Final R esult Performing Organization Address [facility] Co de Phone Number [address] [employer] [place], [place] [phone] * (ABNORMAL) Comprehensive metabolic panel (06/01/2024 1:30 PM DINKEY ENGINE FIRER) [facility] Sodium 142 135 - 145 mmol/L Potassium, pl 3.8 3.3 - 4.9 mmol/L [facility] Chloride 100 97 - 110 mmol/L [facility] CO2 31 22 - 32 mmol/L [facility] Anion gap 11 2 - 15 mmol/L [facility] BUN 14 6 - 25 mg/dL [facility] Creatinine 0.58(L) 0.60 - 1.10 mg/dL [facility] Glucose 91 70 - 199 mg/dL [facility] Comment: Interpretive Data Fasting glucose [...] classification and Diagnosis of Diabetes Diabetes Care 202; 46: S19-S40. Current interpretive data was last revised 2022. Calcium 10.6(H) 8.5 - 10.3 mg/dL [facility] Bilirubin, total 0.3 0.1 - 1.2 mg/dL [facility] Protein, pl 8.4 6.5 - 8.5 g/dL [facility] Albumin 4.7 3.5 - 5.0 g/dL [facility] Alk phos 139(H) 40 - 130 Units/L [facility] ALT 29 7 - 45 Units/L [facility] AST 32 10 - 45 Units/L [facility] Blood 06/01/2024 1:30 PM DINKEY ENGINE FIRER 06/01/2024 1:35 PM DINKEY ENGINE FIRER Constanza DESAI LAB BLOOD ORDERABLES Final R esult Performing Organization Address City/State/[facility] Co de Phone Number [facility] [address] [place] [address] from Last 3 Mon[id number] Care Teams Investigations Chief Relationship Specialty Start Date End Date No, Physician PCP - General 06/01/24
--- NOTE | 2024-08-03 12:10 | ECG_ITS ---
Test Date: 2024-08-03 12:26:18 Measurements Intervals [place] Rate: 86 P: 100 RI: 138 QRS: 64 QRSD: 84 T: 26 QT: 352 QTc: 422 Interpretive Statements SINUS RHYTHM NONSPECIFIC T-WAVE ABNORMALITY- ANT/INF LEADS BASELINE ARTIFACT- I, III, AVR, AVL, AVF, V1-V6 BORDERLINE ECG No previous ECG available for comparison Electronically Signed On 08-03-2024 14:43:58 CDT by Kurtis Nelson D.O.
[2024-08-03 12:44] LABS: Alanine Aminotransferase 39 U/L (6-35); Albumin Level 4.4 g/dL (3.5-5.1); Alkaline Phosphatase 98 U/L (38-126); Amylase 64 U/L (30-110); Aspartate Amino Transferase 30 U/L (14-36); Bilirubin,Total 0.4 mg/dL (0.2-1.3); Lipase 65 U/L (23-300)
== END 2024-08-03 11:59 | disposition home or self-care (01) ==
PROVIDERS: PCP Internal Medicine; Visit Provider Surgery
DX: Z01.818 Encounter for other preprocedural examination (principal); K80.20 Calculus of gallbladder without cholecystitis without obstruction; I10 Essential (primary) hypertension
CPT/HCPCS: 36415; 80076; 82150; 83690; 93005

== ENCOUNTER 2024-08-09 00:26 | Day surgery (SDC) | payer OTHER, SELFPAY ==
[2024-08-01 13:11] VITALS: BMI 31.2
--- NOTE | 2024-08-01 13:19 | PC.NURSE ---
Report to the Outpatient Waiting Room, entrance under the green pavilion located off [facility], at time _1000_ on date _[id number]_. Planned Procedure Time: _1200_.? Time changes happen often and if your time is changed the preop area will call you the afternoon before. - You and your visitor will be asked to self-screen and do not enter if you have any COVID symptoms. Please call surgeon if you need to reschedule. - A mask is optional within the hospital at this time. Patients may have clear liquids (water, carbonated beverages, clear teas, apple juice) until 3 hours prior to surgery with a maximum of 20 ounces. - No food from midnight until time of surgery and no smoking, or chewing tobacco (or any form of nicotine). No chewing gum, candy or mints. Take only the following medications with a SIP of water on the morning of surgery: __None____ DO NOT STOP ANY OF YOUR OTHER PRESCRIPTION MEDICATIONS PRIOR TO SURGERY EXCEPT THE FOLLOWING Hold all vitamins and supplements for 3 days per anesthesiologist. Medications to discontinue per physician Date to take last [id number]__[id number]___ Please no make-up, nail samoan, hairspray, perfume, deodorant, or body powder the day of surgery.? No jewelry (including any body piercings) or valuables the day of surgery, leave them at home.? Please take a shower or bath the night before, or the morning of, surgery with an antibacterial soap.? Wear comfortable, loose fitting clothing.? - Jewelry must be removed prior to entering the operating room.? Rings and piercings that are not removed may be cut off. - The hospital will not accept responsibility for valuables.? - Please leave all valuables, including medications, at home the day of surgery. If you are going home after surgery, a licensed oil transport driver must drive you home.? - NO public transportation without another adult if you receive anesthesia. - We recommend that an adult stay with you for 24 hours following discharge. - We also recommend that you do not drive, make important decision, drink alcoholic beverages, or take any drugs that were not prescribed by your health care provider for at least 24 hours after your discharge time. Follow any additional instructions given to you from your surgeon. Telephone instructions given to __Joe__and asked if any additional questions and then verbalized understanding. Patient advised to call surgeon office or pre surgery nurse liaison [phone] if any additional questions.
[2024-08-09] VITALS (9 sets, daily range): BP systolic 127–140; BP diastolic 82–89; PULSE 76–102; RESP 12–17; TEMP 36.5–36.6; O2SAT 98–100
--- OUTSIDE RECORDS SUMMARY | 2024-08-09 00:28 | XMS_ITS | Clinical Summary ---
Author Organization [facility]3] at the [facility] [place] Address [address] [place] [address] Care Team Providers Care Security Representative Name Role Phone No, Physician Primary Care Provider [phone] Allergies No known active allergies Medications famotidine (Pepcid) 20 mg tabletIndicatio ns:Heartburn Take 1 tablet (20 mg total) by mouth nightly as needed for heartburn 30 tablet Active Encounters Date Type Department Care Team Description 06/13/2024 Telephone [facility] Medical Group Gastroenterology at [place] [address] [place] [address] Loi Hawley MD 06/01/2024 3:17 PM CATHODE RAY TUBE ASSEMBLER - 06/01/2024 4:01 PM [facility] Emergency [facility] [address] [place] [address] Abdominal pain (Primary Dx) Discharge [...] on file Legal Sex Female 9:21 AM CATHODE RAY TUBE ASSEMBLER Gender Identity Not on file Sexual Orientation Not on file Last Filed Vital Signs Vital Sign Reading Time Taken Comments Blood Pressure 131/81 06/01/2024 3:06 PM CATHODE RAY TUBE ASSEMBLER Pulse 78 06/01/2024 3:06 PM CATHODE RAY TUBE ASSEMBLER Temperature 36.9 C (98.4 F) 06/01/2024 12:55 PM CATHODE RAY TUBE ASSEMBLER Respiratory Rate 16 06/01/2024 3:06 PM CATHODE RAY TUBE ASSEMBLER Oxygen Saturation 100% 06/01/2024 3:06 PM CATHODE RAY TUBE ASSEMBLER Inhaled Oxygen Concentration - - Weight 86.2 kg (190 lb) 06/01/2024 12:55 PM CATHODE RAY TUBE ASSEMBLER Height 172.7 cm (5' 8 ) 06/01/2024 12:55 PM CATHODE RAY TUBE ASSEMBLER Body Mass Index 28.89 06/01/2024 12:55 PM CATHODE RAY TUBE ASSEMBLER Plan of Treatment Health Maintenance Due Date [...] POCT HCG, URINE Routine 06/01/2024 1:42 PM CATHODE RAY TUBE ASSEMBLER EGFR STAT 06/01/2024 1:30 PM CATHODE RAY TUBE ASSEMBLER URINALYSIS, MICROSCOPIC ONLY STAT 06/01/2024 1:30 PM CATHODE RAY TUBE ASSEMBLER DIFFERENTIAL AUTO STAT 06/01/2024 1:3 0 PM CATHODE RAY TUBE ASSEMBLER LIPASE STAT 06/01/2024 1:30 PM CATHODE RAY TUBE ASSEMBLER COMPREHENSIVE METABOLIC PANEL STAT 06/01/2024 1:30 PM CATHODE RAY TUBE ASSEMBLER CBC WITH AUTO DIFFERENTIAL STAT 06/01/2024 1:30 PM CATHODE RAY TUBE ASSEMBLER URINALYSIS AND REFLEX TO MICROSCOPIC AND CULTURE STAT 06/01/2024 1:30 PM CATHODE RAY TUBE ASSEMBLER from Last 3 Months Results * POCT hCG, urine (06/01/2024 1:42 PM CATHODE RAY TUBE ASSEMBLER) HCG, ur, POC Negative Negative Lot Number 0 QC Backgroud Clear Acceptable QC Control Line Acceptable Urine 06/01/2024 1:42 PM CATHODE RAY TUBE ASSEMBLER Constanza DESAI POINT OF CARE TEST ORDERABLE S Final Result * eGFR (06/01/2024 1:30 PM CATHODE RAY TUBE ASSEMBLER) eGFR >90 >=60 mL/min/1. 73 m2 Comment: [...] last reviewed 2021. Blood 06/01/2024 1:30 PM CATHODE RAY TUBE ASSEMBLER 06/01/2024 1:48 PM CATHODE RAY TUBE ASSEMBLER Constanza DESAI LAB BLOOD ORDERABLES Final R esult [facility] [address] Department [place] [address] * Differential, auto (06/01/2024 1:30 PM CATHODE RAY TUBE ASSEMBLER) Pathologist [facility] Neutrophil abs 5.4 1.5 - 6.5 K/cumm Imm gran abs 0.0 0.0 - 0.1 K/cumm [facility] Lymphocyte abs 2.1 0.8 - 3.3 K/cumm [facility] Monocyte abs 0.5 0.2 - 0.8 K/cumm [facility] Eosinophil abs 0.1 0.0 - 0.5 K/cumm [facility] Basophil abs 0.0 0.0 - 0.1 K/cumm [facility] Neutrophil pct 66.7 % [facility] Comment: Interpretive Data Percent cell count reference ranges are not reported, since discordance with absolute values may lead to misinterpretation of CBC data. Current Interpretive Data was last revised on 2017. Imm gran pct 0.2 % [facility] Comment: Interpretive Data Percent cell count reference ranges are not reported, since discordance with absolute values may lead to misinterpretation of CBC data. Current Interpretive Data was last revised on 2017. Lymphocyte pct 26.4 % [facility] Comment: Interpretive Data Percent cell count reference ranges are not reported, since discordance with absolute values may lead to misinterpretation of CBC data. Current Interpretive Data was last revised on 2017. Monocyte pct 5.6 % [facility] Comment: Interpretive Data Percent cell count reference ranges are not reported, since discordance with absolute values may lead to misinterpretation of CBC data. Current Interpretive Data was last revised on 2017. Eosinophil pct 0.9 % [facility] Comment: Interpretive Data Percent cell count reference ranges are not reported, since discordance with absolute values may lead to misinterpretation of CBC data. Current Interpretive Data was last revised on 2017. Basophil pct 0.2 % [facility] Comment: Interpretive Data Percent cell count reference ranges are not reported, since discordance with absolute values may lead to misinterpretation of CBC data. Current Interpretive Data was last revised on 2017. Blood 06/01/2024 1:30 PM CATHODE RAY TUBE ASSEMBLER 06/01/2024 1:35 PM CATHODE RAY TUBE ASSEMBLER Constanza DESAI LAB BLOOD ORDERABLES Final R esult Performing Organization Address [facility] de Phone Number VENUS [address] [phone] * (ABNORMAL) Urinalysis reflex to microscopic and culture Urine (06/01/2024 1:30 PM CATHODE RAY TUBE ASSEMBLER) Color, ur Yellow Yellow Clarity, ur Clear Clear [facility] Specific gravity, ur 1.020 1.003 - 1.030 [facility] pH, urine 7.5 [facility] Comment: Interpretive Data U rine pH is affected by diet, medications, systemic acid-base disturbances, and renal tubular function. pH may affect urinary stone formation. For example, urine pH below 6.0 may help reduce the tendency for calcium phosphate stones and pH greater than 6.0 may reduce the tendency for uric acid stone formation. Source: [facility] Current Interpretive Data was last revised on 2017 Protein, ur ql Negative Negative [facility] Glucose, ur ql Negative Negative [facility] Ketones, ur Negative Negative [facility] Bilirubin, ur Negative Negative [facility] Blood, ur Negative Negative [facility] Urobilinogen, ur <2.0 <2.0 mg/dL [facility] Nitrite, ur Negative Negative [facility] Leukocyte esterase, ur 1+(A) Negative [facility] UA reflex comment Reflex to microscopic UA will be performed. [facility] Urine 06/01/2024 1:30 PM CATHODE RAY TUBE ASSEMBLER 06/01/2024 1:35 PM CATHODE RAY TUBE ASSEMBLER Constanza DESAI LAB MICROBIOLOGY - GENERAL O RDERABLES Final Result Performing Organization Address [facility] Co de Phone Number VENUS [address] [phone] * (ABNORMAL) CBC with auto differential (06/01/2024 1:30 PM CATHODE RAY TUBE ASSEMBLER) WBC 8.1 3.8 - 9.9 K/cumm Hgb 13.7 11.9 - 15.5 g/dL [facility] Hct 42.4 35.6 - 45.5 % [facility] Plt 355 150 - 400 K/cumm [facility] MPV 8.5(L) 9.1 - 12.3 fL [facility] RBC 5.36(H) 3.90 - 5.20 M/cumm [facility] MCV 79.1(L) 81.3 - 96.4 fL [facility] MCH 25.6(L) 27.1 - 33.3 pg [facility] MCHC 32.3 32.3 - 35.7 g/dL [facility] RDW CV 14.6 11.1 - 14.9 % [facility] RDW SD 41.5 35.7 - 48.1 fL [facility] NRBC abs 0.00 0.00 - 0.01 K/cumm [facility] Blood 06/01/2024 1:30 PM CATHODE RAY TUBE ASSEMBLER 06/01/2024 1:35 PM CATHODE RAY TUBE ASSEMBLER us Constanza DESAI LAB BLOOD ORDERABLES Final R esult Performing Organization Address [facility] de Phone Number [address] [place], [place] [phone] * (ABNORMAL) Urinalysis, microscopic only (06/01/2024 1:30 PM CATHODE RAY TUBE ASSEMBLER) WBC, ur 0-5 0 - 5 /HPF RBC, ur 0-2 0 - 2 /HPF [facility] Epithelial cells, squamous, ur 6-10(A) 0 - 5 /HPF [facility] Comment:Suggestive of contam ination. Consider recollection by clean catch. Mucous, ur Present(A) [facility] Culture Reflex Comment Reflex conditions for urine culture (WBC >10) not met. [facility] Urine 06/01/2024 1:30 PM CATHODE RAY TUBE ASSEMBLER 06/01/2024 1:35 PM CATHODE RAY TUBE ASSEMBLER Constanza DESAI LAB URINE ORDERABLES Final R esult Performing Organization Address [facility] Co de Phone Number [address] [place], [place] [phone] * Lipase (06/01/2024 1:30 PM CATHODE RAY TUBE ASSEMBLER) Lipase 50 10 - 99 Units/L Blood 06/01/2024 1:30 PM CATHODE RAY TUBE ASSEMBLER 06/01/2024 1:35 PM CATHODE RAY TUBE ASSEMBLER us Constanza DESAI LAB BLOOD ORDERABLES Final R esult [facility] [address] Department [place] [address] * (ABNORMAL) Comprehensive metabolic panel (06/01/2024 1:30 PM CATHODE RAY TUBE ASSEMBLER) [facility] Sodium 142 135 - 145 mmol/L Potassium, pl 3.8 3.3 - 4.9 mmol/L [facility] Chloride 100 97 - 110 mmol/L [facility] CO2 31 22 - 32 mmol/L [facility] Anion gap 11 2 - 15 mmol/L [facility] BUN 14 6 - 25 mg/dL [facility] Creatinine 0.58(L) 0.60 - 1.10 mg/dL [facility] Glucose 91 70 - 199 mg/dL [facility] Comment: Interpretive Data Fasting glucose [...] 2022. Calcium 10.6(H) 8.5 - 10.3 mg/dL [facility] Bilirubin, total 0.3 0.1 - 1.2 mg/dL [facility] Protein, pl 8.4 6.5 - 8.5 g/dL [facility] Albumin 4.7 3.5 - 5.0 g/dL [facility] Alk phos 139(H) 40 - 130 Units/L [facility] ALT 29 7 - 45 Units/L [facility] AST 32 10 - 45 Units/L [facility] Blood 06/01/2024 1:30 PM CATHODE RAY TUBE ASSEMBLER 06/01/2024 1:35 PM CATHODE RAY TUBE ASSEMBLER us Constanza DESAI LAB BLOOD ORDERABLES Final R esult [facility] [address] [place] [address] from Last 3 Months Insurance [employer] Care Teams Security Representative Relationship Specialty Start Date End Date No, Physician PCP - General 06/01/24
--- OUTSIDE RECORDS SUMMARY | 2024-08-09 00:28 | XMS_ITS | Clinical Summary ---
Author Organization [facility] Care Team Providers Care Crown Assembly Machine Set Up Mechanic Name Role Phone Unavailable Primary Care Provider Unavailabl e Social History Tobacco Use Types Packs/Day Years Used Date Smoking Tobacco: Never Assessed Comments Unknown Sex and Gender Information Value Date Recorded Sex Assigned at Not on file Legal Sex Female 8:40 AM ONLINE COMMUNITY MANAGER Gender Identity Not on file Sexual Orientation [...]
--- OUTSIDE RECORDS SUMMARY | 2024-08-09 00:29 | XMS_ITS | Data Portability ---
Author Organization [employer] , [facility] Address [address] [place] [address] Assessment No assessment recorded. Plan of Treatment Reminders Order Date Submit Date Provider Last Modified By Organization Details Last Modified Time Details Appointments None recorded. Lab pap, LB 2021 022 [employer], [address] [place], [address], 15:19:59 unlisted lab - Pap reflex hold 2021 022 [employer] Peter, [address] [place], [address], 11:32:26 Referral None recorded. Procedures None recorded. Surgeries None recorded. Imaging None recorded. Medication Orders None recorded. Patient TargetsNo targets recorded. Patient InstructionsNo instructions recorded. Reason for Referral None Reported. Results Created Date Observation Date Name Description Value Unit Range Abnormal Flag Note LastModifiedBy Organization Detail LastModifiedTime 10/14/1910/18/2021 PAP REFLE X HOLD Pap reflex hold Receiv ed receiv ed Not Available [employer] [facility] [address] [place], [address], 10/18/2021 11:32:25 10/15/1910/20/2021 THINP REP TIS PAP clinical information: normal Infor matio n not provi ded Not Available [employer] [facility] [address] [address], [place], [address], 10/20/2021 15:19:59 10/15/1910/20/2021 THINP REP TIS PAP LMP: normal NONE GIVEN Not Available [address] [address] [place], [address], 10/20/2021 15:19:59 10/15/19 22 10/20/2021 THINP REP TIS PAP prev. Pap: normal NONE GIVEN Not Available [address] [address] [place], [address], 10/20/2021 15:19:59 10/15/19 22 10/20/2021 THINP REP TIS PAP prev. BX: normal NONE GIVEN Not Available [address] [place], [address], 10/20/2021 15:19:59 10/15/19 22 10/20/2021 THINP REP TIS PAP source: normal Cervi x, Endoc ervix Not Available [address] [place], [address], 10/20/2021 15:19:59 10/15/19 22 10/20/2021 THINP REP TIS PAP statement of adequacy: normal Satis facto ry for evalu ation . Endoc ervic al/tr ansfo rmati on zone compo nent prese nt. Age and/o r menst rual statu s not provi ded Not Available [address] [place], [address], 10/20/2021 15:19:59 10/15/19 22 10/20/2021 THINP REP TIS PAP interpretati on/result: normal Negat elaine for intra epith elial lesio n or malig siria . Not Available [address] [place], [address], 10/20/2021 15:19:59 10/15/19 22 10/20/2021 THINP REP TIS PAP comment: normal This Pap test has been evalu ated with compu ter [employer] . Not Available [address] [address] [place], [address], 10/20/2021 15:19:59 10/15/19 22 10/20/2021 THINP REP TIS PAP cytotechnolo gist: normal AMW, CT( CP) CT [place] locat ion: [address] [address] [place] [address] Not Available [employer] [address] [address] [place], [address], 10/20/2021 15:19:59 10/15/19 22 10/20/2021 THINP REP [...] clini malaika infor matio n. Not Available [employer] [address] [address] [place], [address], 10/20/2021 15:19:59 Result Notes None recorded. Problems Name Problem SNOMED Code Status Onset Date Resolution Date Notes Provider Name and Address Organization Details Recorded Time Generali zed anxiety disorder 01258769 Active 2014 Anxiety; Location : None Progress : Stable Added By: Constanza Kearns Add to Current Problems : NO ProblemS tatus: Current Not Available [employer] 2 21:58:21 Single major depressi ve episode Active 2012 Depressi on; Progress : Stable Added By: Jessiac Morris Add to Current Problems : YES ProblemS tatus: Current Not Available [employer] 2 21:58:22 Dysmenor raheem 405176070 Completed 201403/09/2015 Dysmenor raheem; Location : None Severity : Moderate Progress : Stable Added By: Luda Dennis Add to Current Problems : YES ProblemS tatus: Resolve Dysmenor raheem; Location : None Severity : Moderate Progress : Stable Added By: Rhiannon Turner Add to Current Problems : YES ProblemS tatus: Current; Start Date : 11/27/19 15 Not Available [facility] 1 02:56:21 Female genital organ symptoms 656175668 Active 2014 Female pelvic pain; Progress : Stable Added By: Tami Álvarez Add to Current Problems : YES ProblemS tatus: Current pelvic pain; Progress : Stable Added By: Constanza Kearns Add to Current Problems : NO ProblemS tatus: Resolve; Start Date : 06/27/19 15 Not Available [facility] 2 21:58:21 Pain in female genitali a Completed 201403/09/2015 Dysmenor raheem, unspecif ied; Progress : Stable Added By: Luda Dennis Add to Current Problems : NO ProblemS tatus: Resolve Not Available [facility] 2 21:58:21 Contrace ptive usage NOS Completed 201408/25/2014 Initiati on of other contrace ptive measures ; Location : None Severity : Moderate Progress : Stable Added By: Sarah Gallardo Add to Current Problems : NO ProblemS tatus: Resolve Not Available [facility] 1 02:56:22 Depressi ve disorder 12454630 Active 2014 Depressi on; Location : None Progress : Stable Added By: Constanza Kearns Add to Current Problems : YES ProblemS tatus: Current Not Available [facility] 2 21:58:21 Dysmenor raheem 351848480 Active 2014 Dysmenor raheem; Location : None [...] Start Date : 05/16/19 13 Not Available [facility] 2 21:58:21 Notes:Initiation of other co ntraceptive measures (V25.02) ; OnsetDate: 06/26/2014; ResolvedDate: 08/25/2014; Location: None Progress: Stable Added By: Sarah Gallardo Add to Current Problems: NO ProblemStatus: Resolve Problem Notes None recorded. Procedures Surgical History Date Name Laterality Status Provider Name and Address Organization Details Recorded Time 08/23/2015 Date of Last Pap Smear completed Yuliana Crawford [facility] 10/13/2021 17:08:35 Imaging Results None recorded. Procedure Notes None recorded. Medical Equipment None Reported. Allergies Allergen ID Allergen Name Allergen Category Reaction Reaction Severity Criticality Documentation Date Start Date Code Code System Note Provider Name and Address Organization Details Recorded Time 766584 Non-stero idal anti-infl ammatory agent (product) medicatio n Not available Not available Not available 02/12/20212014 11208 005 SNOMED Sever ity: Moder ate; Not Available Not Available Not Available 450532 Tamiflu medicatio n Not available Not available Not available 02/12/20212012 98470 7 RxNorm Sever ity: Moder ate; Not Available Not Available Not Available 447321 pineapple allergeni c extract food,medi cation Not available Not available Not available 02/12/20212014 40787 5 RxNorm Sever ity: Moder ate; Not Available Not Available Not Available 875177 doxycycli ne Not available Not available Not available Not available 02/12/20212012 3640 RxNorm Sever ity: Moder ate; Not Available Not Available Not Available 089922 mold extract environme nt Not available Not available Not available 10/13/2021 22583 8 RxNorm Not Available Not Available Not Available Medications Name Sig Start Date Stop Date Status Note LastModified by Organization Details LastModified Time Zoloft 25 mg tablet Take 1 tablet(s ) by mouth daily 12/31 completed Zoloft 25mg Tablet RxNorm: 042612 Allow Substitu tion: True Refill Denied: No For Problem: Anxiety Not Available Not Available Not Available Crompond 5 mg-325 mg tablet 1 po q 4 to 6 hrs prn pain 03/01 completed Crompond 5mg/325m g Tablet RxNorm: 450281 Allow Substitu tion: True Refill Denied: No Not Available Not Available Not Available NuvaRing 0.12 mg-0.015 mg/24 hr vaginal insert new ring q 3 weeks as directed by irineo nielsen 07/06 completed NuvaRing 0.015mg/ 0.12mg Vaginal Ring RxNorm: 6980708 Allow Substitu tion: True Refill Denied: No Not Available Not Available Not Available Lexapro 20 mg tablet Take 1 tablet every day by oral route. active Not Available Not Available No t Available glycopyrr olate active Not Available Not Available Not Available Benadryl 10/13 completed Benadryl RxNorm: 938002 Allow Substitu tion: True Refill Denied: No Refill DateOccu rred: 05/16/19 13 Not Available Not Available Not Available Lexapro 10/13 completed Lexapro 5mg Tablet RxNorm: 169128 Allow Substitu tion: True Refill Denied: No [...] Updated DateTime 10/13/2021 172.72 cm 32.5 kg/m2 97443.77 g 126 mm[Hg] 82 mm[Hg] Yuliana Crawford [employer] [facility] 17:24:02 Social History Question Answer Notes LastModified by Organizat ion Details LastModified Time Tobacco Smoking Status Never Smoker Yuliana voss [employer] [facility] 10/13/2021 17:08:44 What Is Your Level Of Alcohol Consumption? Occasional [email or web address] Information not available 10/13/2021 How Many Years Have You Consumed Alcohol? 6 [email or web address] Information not available 10/13/2021 Are You Blind Or Do You Have Difficulty Seeing? No [email or web address] Information not available 10/13/2021 Are You Deaf Or Do You Have Serious Difficulty Hearing? No [email or web address] Information not available 10/13/2021 What Type Of Diet Are You Following? REGULAR [email or web address] Information not available 10/13/2021 Which Illicit Or Recreational Drugs Have You Used? Marijuana [email or web address] Information not available 10/13/2021 Do You Or Have You Ever Used E-cigarettes Or Vape? Current User Of Electronic Cigarettes [email or web address] Information not available 10/13/2021 What Is Your Relationship Status? [email or web address] Information not available 10/13/2021 Are You Sexually Active? Yes [email or web address] Information not available 10/13/2021 Sex: Unknown Functional Status Question Answer Note LastModified by Organization D etails LastModified Time What is your exercise level? Moderate Information not available 10/13/2021 Mental Status None recorded. Family History Relationship Description Onset Age of this Age Resolved Age Notes LastModified by Organization Details LastModified Time Paternal Grandfather Hypertensive disorder [email or web address] Not available 10/13 17:08:29 Paternal Grandfather Hypercholest erolemia [email or web address] Not available 10/13 17:08:29 Paternal Grandfather Diabetes mellitus [email or web address] Not available 10/13 17:08:29 Maternal Grandmother Malignant neoplastic disease [email or web address] Not available 10/13 17:08:29 Mother Endometriosi s (clinical) [email or web address] Not available 17:08:29 Mother Hypercholest erolemia [email or web address] Not available 10/13 17:08:29 Father Diabetes mellitus [email or web address] Not available 10/13 17:08:29 Father Hypercholest erolemia [email or web address] Not available 10/13 17:08:29 Father Hypertensive disorder Not available 10/13 17:08:29 Paternal Grandmother Heart disease Not available 10/13 17:08:29 Paternal Grandmother Myocardial infarction [email or web address] Not available 09/23 17:08:29 Paternal Grandmother Hypertensive disorder Not available 10/13 17:08:29 Paternal Grandmother Hypercholest erolemia [email or web address] Not available 10/13 17:08:29 Medical History Condition [...] SNOMED-CT Code Diagnosis ICD10 Code Diagnosis Note [id number] Blessing Pollock is, [facility] [address] [place] [address] 10/13/2021 17:05:15 10/13/2021 18:05:33 Screening for malignant neoplasm of cervix 809953963 Z12.4 Fertility education 2685 38268 Z31.62 Discussed PNV, timing of cycle and timed intercours e Health Concerns Section Related Observation LastModified by Organization Detai ls LastModified Time None Recorded Concern Status LastModified by Organization Details LastModified Time None Recorded Advance Directives Directive None Recorded Payers Encounter Date Sequence Insurance Name Policy Number Policy Moran Covered Member ID Moran Member ID Guarantor Name 10/13/2021 1 [facility] Joe Harris [id number] Joe Harris Notes Date Note Type Note Provider Name and Address Organization Details Recorded Time 10/13/2021 text/html Here today for annual exam, would like to become Blessing Meeks CNM [address] [facility], [place], [address], [facility] [employer] 10/13/2021 17:42:53 OBGyn Episode No OBEpisode recorded.
--- OUTSIDE RECORDS SUMMARY | 2024-08-09 00:29 | XMS_ITS | Encounter Summary ---
Author Organization [facility] Address [address] [place] [address] Care Team Providers Care Field Underwriter Name Role Phone Unavailable Primary Care Provider Unavailabl e Reason for Referral * Eval and Treat (Routine) - Open Specialty Diagnoses / Procedures Referred By Contac t Referred To Contact Diagnoses Dyspepsia Gallstones Procedures [place] OFFICE/OUTPATIENT ESTABLISHED MOD MDM 30 MIN [place] OFFICE/OUTPATIENT NEW MODERATE MDM 45 MINUTES Araseli Black MD [facility] [place] [address] Phone: tel: fax: Referral ID Status Reason Start Date Expiration Date Visits Re quested Visits Authorized [id number] Open 06/28/2024 06/28/2025 1 1 ER TENDER Encounter Details Date Type Department Care Team (Late st Contact Info) Description 06/28/2024 Results Follow-Up [facility] [employer] [place] [address] [employer] [facility] [place] [address] Araseli Black MD [address] [place] [address] [place] ABDOMEN LIMITED Social History Tobacco Use Types Packs/Day Years Used Date Smoking Tobacco: Never Smokeless Tobacco: Never Alcohol Use Standard Drinks/Week Comments Not Currently 1 (1 standard drink = 0.6 oz pur e alcohol) Comments No Sex and Gender Information Value Date Recorded Sex Assigned at Female 01/05/2024 10:25 AM CDT Legal Sex Female 1:41 PM PULPER T[employer] Gender Identity Female 01/05/2024 10:25 AM CDT Sexual Orientation Straight 01/05/2024 10 :25 AM CDT documented as of this encounter Miscellaneous Notes * Result Encounter Note - Mara Romero - 06/28/2024 2:21 PM CST Called and informed pt. Patient states if not taking pepcid and following a bland diet her symptomsare much more intense. Pt prefers [place] in [place]. Referral faxed. ER TENDER * Result Encounter Note - Mara Romero - 06/28/2024 1:38 PM CST Lvm for pt to call our office back regarding imagaing ER TENDER documented in this encounter Plan of Treatment [...] Depression Total Score: 1 06/14/19 2:52 PM PULPER TENDER documented as of this encounter
--- OUTSIDE RECORDS SUMMARY | 2024-08-09 00:29 | XMS_ITS | Clinical Summary ---
Author Organization [facility] [employer] [place] Address [address] [place] [id number] Care Team Providers Care Generator Technician Name Role Phone Unavailable Primary Care Provider [...] Encounters Date Type Department Care Team Description 08/05/2024 Abstract [facility] [employer] [facility] [address] [place] [address] Provider, Abstract 07/23/2024 External Device Data STL ABSTRACTION Provider, Abstract 07/05/2024 Telephone [facility] [employer] [place] [address] [place] [address] Lisa Szymanski, ANP [facility] Surgeon 06/29/2024 External Device Data [facility] ABSTRACTION Provider, Abstract 06/28/2024 External Device Data [place] ABSTRACTION Provider, Abstract 06/28/2024 Results Follow-Up [facility] [employer] [place] [address] [place] [address] Araseli Black MD ABDOMEN LIMITED 06/28/2024 Orders Only [facility] [employer] [place] [address] [place] [address] Mara Romero Dyspepsia 06/25/2024 External Device Data STL ABSTRACTION Provider, Abstract 06/14/2024 2:00 PM [employer]ECKTIE MAKER Office Visit [facility] [employer] [facility] [address] [place] [address] Araseli Black MD Dyspepsia (Primary Dx); Situational [...] Hypertension Paternal Grandfather Art Anxiety Paternal Grandmother Jonella Depression Paternal Grandmother Jonella Diabetes Paternal Grandmother Jonella Heart Attack Paternal Grandmother Jonella Heart Disease Paternal Grandmother Jonella Hypertension Paternal Grandmother Jonella Relation Name Status Comments Father Yang Alive Maternal Grandfather Alive Maternal Grandmother Dione Mother Shyanne Alive Paternal Grandfather Art Paternal Grandmother Jomalcoma Social History Tobacco Use Types Packs/Day Years Used Date Smoking Tobacco: Never Smokeless Tobacco: Never Tobacco Cessation:Counseling Given: Not Answered Alcohol Use Standard Drinks/Week Comments Not Currently 1 (1 standard drink = 0.6 oz pur e alcohol) Comments No Sex and Gender Information Value Date Recorded Sex Assigned at Female 01/05/2024 10:25 AM CDT Legal Sex Female 1:41 PM [employer] Gender Identity Female 01/05/2024 10:25 AM CDT Sexual Orientation Straight 01/05/2024 10 :25 AM CDT Last Filed Vital Signs Vital Sign Reading Time Taken Comments Blood Pressure 122/84 06/14/2024 2:04 PM [employer] Pulse 84 06/14/2024 2:04 PM [employer] Temperature 36.7 C (98.1 F) 01/05/2024 1:28 PM CDT Respiratory Rate 18 06/14/2024 2:04 PM [employer] Oxygen Saturation 98% 06/14/2024 2:04 PM [employer] Inhaled Oxygen Concentration - - Weight 89.4 kg (197 lb 3.2 oz) 06/14/2024 2:04 P M [employer] Height 172.7 cm (5' 8 ) 06/14/2024 2:04 PM [employer] Body Mass Index 29.98 06/14/2024 2:04 PM [employer]IE [employer] Plan of Treatment Health Maintenance Due Date [...] Final Result from Last [address] [facility] OPEN ACCESS
--- OUTSIDE RECORDS SUMMARY | 2024-08-09 00:29 | XMS_ITS | Referral Summary ---
Author Organization [facility] Address [address] [place] [address] Care Team Providers Care Erection Shop Supervisor Name Role Phone No, Physician Primary Care Provider [phone] Encounters Date Type Department Care Team Description 06/13/2024 Telephone [facility] [place] [address] [facility] [address] [place] [address] Loi Hawley MD 06/01/2024 3:17 PM HUMID SYSTEM OPERATOR - 06/01/2024 4:01 PM HUMID SYSTEM OPERATOR Emergency [facility] [address] [place], [place] [id number] Abdominal pain (Primary Dx) Discharge Disposition: Discharge [...] on file Legal Sex Female 9:21 AM HUMID SYSTEM OPERATOR Gender Identity Not on file Sexual Orientation Not on file Last Filed Vital Signs Vital Sign Reading Time Taken Comments Blood Pressure 131/81 06/01/2024 3:06 PM HUMID SYSTEM OPERATOR Pulse 78 06/01/2024 3:06 PM HUMID SYSTEM OPERATOR Temperature 36.9 C (98.4 F) 06/01/2024 12:55 PM HUMID SYSTEM OPERATOR Respiratory Rate 16 06/01/2024 3:06 PM HUMID SYSTEM OPERATOR Oxygen Saturation 100% 06/01/2024 3:06 PM HUMID SYSTEM OPERATOR Inhaled Oxygen Concentration - - Weight 86.2 kg (190 lb) 06/01/2024 12:55 PM HUMID SYSTEM OPERATOR Height 172.7 cm (5' 8 ) 06/01/2024 12:55 PM HUMID SYSTEM OPERATOR Body Mass Index 28.89 06/01/2024 12:55 PM HUMID SYSTEM OPERATOR Plan of Treatment Not on file Procedures Procedure Name Priority Date/Time Associated Diagnosis Comments POCT HCG, URINE Routine 06/01/2024 1:42 PM HUMID SYSTEM OPERATOR EGFR STAT 06/01/2024 1:30 PM HUMID SYSTEM OPERATOR URINALYSIS, MICROSCOPIC ONLY STAT 06/01/2024 1:30 PM HUMID SYSTEM OPERATOR DIFFERENTIAL AUTO STAT 06/01/2024 1:3 0 PM HUMID SYSTEM OPERATOR LIPASE STAT 06/01/2024 1:30 PM HUMID SYSTEM OPERATOR COMPREHENSIVE METABOLIC PANEL STAT 06/01/2024 1:30 PM HUMID SYSTEM OPERATOR CBC WITH AUTO DIFFERENTIAL STAT 06/01/2024 1:30 PM HUMID SYSTEM OPERATOR URINALYSIS AND REFLEX TO MICROSCOPIC AND CULTURE STAT 06/01/2024 1:30 PM HUMID SYSTEM OPERATOR from Last 3 Months Results * POCT hCG, urine (06/01/2024 1:42 PM HUMID SYSTEM OPERATOR) HCG, ur, POC Negative Negative Lot Number 0 QC Backgroud Clear Acceptable QC Control Line Acceptable Urine 06/01/2024 1:42 PM HUMID SYSTEM OPERATOR us Constanza DESAI POINT OF CARE TEST ORDERABLE S Final Result * eGFR (06/01/2024 1:30 PM HUMID SYSTEM OPERATOR) Pathologist [facility] eGFR >90 >=60 mL/min/1. 73 m2 Comment: [...] last reviewed 2021. Blood 06/01/2024 1:30 PM HUMID SYSTEM OPERATOR 06/01/2024 1:48 PM HUMID SYSTEM OPERATOR us Constanza DESAI LAB BLOOD ORDERABLES Final R esult [place] [id number] [facility] Department [place] [address] * Differential, auto (06/01/2024 1:30 PM HUMID SYSTEM OPERATOR) Pathologist [facility] Neutrophil abs 5.4 1.5 - 6.5 K/cumm Imm gran abs 0.0 0.0 - 0.1 K/cumm [facility] Lymphocyte abs 2.1 0.8 - 3.3 K/cumm [facility] Monocyte abs 0.5 0.2 - 0.8 K/cumm [facility] Eosinophil abs 0.1 0.0 - 0.5 K/cumm [facility] Basophil abs 0.0 0.0 - 0.1 K/cumm [facility] Neutrophil pct 66.7 % [facility] Comment: Interpretive Data Percent cell count reference ranges are not reported, since discordance with absolute values may lead to misinterpretation of CBC data. Current Interpretive Data was last revised on 2017. Imm gran pct 0.2 % [facility] Comment: Interpretive Data Percent cell count reference ranges are not reported, since discordance with absolute values may lead to misinterpretation of CBC data. Current Interpretive Data was last revised on 2017. Lymphocyte pct 26.4 % [facility] Comment: Interpretive Data Percent cell count reference ranges are not reported, since discordance with absolute values may lead to misinterpretation of CBC data. Current Interpretive Data was last revised on 2017. Monocyte pct 5.6 % [facility] Comment: Interpretive Data Percent cell count reference ranges are not reported, since discordance with absolute values may lead to misinterpretation of CBC data. Current Interpretive Data was last revised on 2017. Eosinophil pct 0.9 % [facility] Comment: Interpretive Data Percent cell count reference ranges are not reported, since discordance with absolute values may lead to misinterpretation of CBC data. Current Interpretive Data was last revised on 2017. Basophil pct 0.2 % [facility] Comment: Interpretive Data Percent cell count reference ranges are not reported, since discordance with absolute values may lead to misinterpretation of CBC data. Current Interpretive Data was last revised on 2017. Blood 06/01/2024 1:30 PM HUMID SYSTEM OPERATOR 06/01/2024 1:35 PM HUMID SYSTEM OPERATOR Constanza DESAI LAB BLOOD ORDERABLES Final R esult [facility] [address] [facility] Department [place] [address] * (ABNORMAL) Urinalysis reflex to microscopic and culture Urine (06/01/2024 1:30 PM HUMID SYSTEM OPERATOR) Color, ur Yellow Yellow Clarity, ur Clear Clear [facility] Specific gravity, ur 1.020 1.003 - 1.030 [facility] pH, urine 7.5 [facility] Comment: Interpretive Data U rine pH is affected by diet, medications, systemic acid-base disturbances, and renal tubular function. pH may affect urinary stone formation. For example, urine pH below 6.0 may help reduce the tendency for calcium phosphate stones and pH greater than 6.0 may reduce the tendency for uric acid stone formation. Source: [facility] Current Interpretive Data was last revised on 2017 Protein, ur ql Negative Negative [facility] Glucose, ur ql Negative Negative [facility] Ketones, ur Negative Negative [facility] Bilirubin, ur Negative Negative [facility] Blood, ur Negative Negative [facility] Urobilinogen, ur <2.0 <2.0 mg/dL [facility] Nitrite, ur Negative Negative [facility] Leukocyte esterase, ur 1+(A) Negative [facility] UA reflex comment Reflex to microscopic UA will be performed. [facility] Urine 06/01/2024 1:30 PM HUMID SYSTEM OPERATOR 06/01/2024 1:35 PM HUMID SYSTEM OPERATOR us Constanza DESAI LAB MICROBIOLOGY - GENERAL O RDERABLES Final Result [facility] [address] [facility] Department [place] [address] * (ABNORMAL) CBC with auto differential (06/01/2024 1:30 PM HUMID SYSTEM OPERATOR) WBC 8.1 3.8 - 9.9 K/cumm Hgb 13.7 11.9 - 15.5 g/dL [facility] Hct 42.4 35.6 - 45.5 % [facility] Plt 355 150 - 400 K/cumm [facility] MPV 8.5(L) 9.1 - 12.3 fL [facility] RBC 5.36(H) 3.90 - 5.20 M/cumm [facility] MCV 79.1(L) 81.3 - 96.4 fL [facility] MCH 25.6(L) 27.1 - 33.3 pg [facility] MCHC 32.3 32.3 - 35.7 g/dL [facility] RDW CV 14.6 11.1 - 14.9 % [facility] RDW SD 41.5 35.7 - 48.1 fL [facility] NRBC abs 0.00 0.00 - 0.01 K/cumm [facility] Blood 06/01/2024 1:30 PM HUMID SYSTEM OPERATOR 06/01/2024 1:35 PM HUMID SYSTEM OPERATOR us Constanza DESAI LAB BLOOD ORDERABLES Final R esult Performing Organization Address [facility] de Phone Number [facility] [address] [address] * (ABNORMAL) Urinalysis, microscopic only (06/01/2024 1:30 PM HUMID SYSTEM OPERATOR) [facility] WBC, ur 0-5 0 - 5 /HPF RBC, ur 0-2 0 - 2 /HPF [facility] Epithelial cells, squamous, ur 6-10(A) 0 - 5 /HPF [facility] Comment:Suggestive of contam ination. Consider recollection by clean catch. Mucous, ur Present(A) [facility] Culture Reflex Comment Reflex conditions for urine culture (WBC >10) not met. [facility] Urine 06/01/2024 1:30 PM HUMID SYSTEM OPERATOR 06/01/2024 1:35 PM HUMID SYSTEM OPERATOR Constanza DESAI LAB URINE ORDERABLES Final R esult Performing Organization Address [facility] de Phone Number [address] [place] [address] * Lipase (06/01/2024 1:30 PM HUMID SYSTEM OPERATOR) [facility] Lipase 50 10 - 99 Units/L Blood 06/01/2024 1:30 PM HUMID SYSTEM OPERATOR 06/01/2024 1:35 PM HUMID SYSTEM OPERATOR Constanza DESAI LAB BLOOD ORDERABLES Final R esult Performing Organization Address [facility] Co de Phone Number [address] [employer] [place], [place] [phone] * (ABNORMAL) Comprehensive metabolic panel (06/01/2024 1:30 PM HUMID SYSTEM OPERATOR) [facility] Sodium 142 135 - 145 mmol/L Potassium, pl 3.8 3.3 - 4.9 mmol/L [facility] Chloride 100 97 - 110 mmol/L [facility] CO2 31 22 - 32 mmol/L [facility] Anion gap 11 2 - 15 mmol/L [facility] BUN 14 6 - 25 mg/dL [facility] Creatinine 0.58(L) 0.60 - 1.10 mg/dL [facility] Glucose 91 70 - 199 mg/dL [facility] Comment: Interpretive Data Fasting glucose >/= [...] 2022. Calcium 10.6(H) 8.5 - 10.3 mg/dL [facility] Bilirubin, total 0.3 0.1 - 1.2 mg/dL [facility] Protein, pl 8.4 6.5 - 8.5 g/dL [facility] Albumin 4.7 3.5 - 5.0 g/dL [facility] Alk phos 139(H) 40 - 130 Units/L [facility] ALT 29 7 - 45 Units/L [facility] AST 32 10 - 45 Units/L [facility] Blood 06/01/2024 1:30 PM HUMID SYSTEM OPERATOR 06/01/2024 1:35 PM HUMID SYSTEM OPERATOR Constanza DESAI LAB BLOOD ORDERABLES Final R esult Performing Organization Address City/State/[facility] Co de Phone Number [facility] [address] [facility] Department [place] [address] from Last 3 Mon[place] [id number] Care Teams Erection Shop Supervisor Relationship Specialty Start Date End Date No, Physician PCP - General 06/01/24
--- OUTSIDE RECORDS SUMMARY | 2024-08-09 00:29 | XMS_ITS | Data Portability ---
Author Organization [facility] [place] Address [address] [place] [address] [place] [address] Assessment No assessment recorded. Plan of Treatment Reminders Order Date Submit Date Provider Last Modified By Organization Details Last Modified Time Details Appointments None recorded. Lab test, urine 2024 025 [email or web address] [place], [address], [place], [address], 5 15:16:05 test, urine 2023 024 [email or web address] [place], [address], [place], [address], 10:57:12 Referral None recorded. Procedures None recorded. Surgeries None recorded. Imaging US, obstetric, biophysical profile + non-stress test 2023 024 [email or web address] [facility], [address], [place], [address], 4 11:45:26 Medication Orders ParaGard T 380A 380 square mm intrauterin e device 2024 025 [email or web address] Not available 5 15:15:48 Mirena 21 mcg/24 hr (up to 8 years) 52 mg intrauterin e device 2023 024 [email or web address] Not available 5 14:45:16 Patient TargetsNo targets [...] Resul ting Lab: [facility] [address] [facility] [address] Tel: CULTU RE ----- ----- ----- --- [...] lab withi n 5 days. Not Available [facility] (Lab) [address] [facility], [place], [address], 01/04/2024 23:08:06 04/05/20 24 04/05/2024 pregn silvia test, urine HCG negati ve Not Available [place] [address], [place], [address], 04/05/2024 10:57:05 06/21/19 25 06/21/2024 pregn silvia test, urine HCG negati ve Not Available [place] [address], [place], [address], 06/21/2024 15:15:55 12/12/19 24 12/12/2023 US, obste tric, bioph ysica l profi le + non-s tress test No observ ation record ed. [email or web address] [place] [address], [place], [address], 12/12/2023 17:39:33 12/12/19 24 12/12/2023 US, obste tric, bioph ysica l profi le + non-s tress test No observ ation record ed. [email or web address] [address], [place], [address], 12/12/2023 12:26:11 12/12/19 24 12/12/2023 non-s tress test No observ ation record ed. [email or web address] [place] [address], [place], [address], 12/12/2023 11:15:05 12/19/19 24 12/19/2023 US, obste tric, follo w-up No observ ation record ed. [email or web address] [place] [address], [place], [address], 12/19/2023 12:45:50 12/19/19 24 12/19/2023 US, lamar tric, bioph ysica l profi le + non-s tress test No observ ation record ed. [email or web address] [place] [address], [place], [address], 12/19/2023 12:46:01 12/19/19 24 12/19/2023 non-s tress test No observ ation record ed. [email or web address] [place] [address], [place], [address], 12/19/2023 11:18:32 12/19/19 24 12/19/2023 US, obste tric, follo w-up No observ ation record ed. [email or web address] [address], [place], [address], 12/20/2023 07:28:28 12/26/19 24 12/26/2023 non-s tress test No observ ation record ed. [email or web address] [place] [address], [place], [address], 12/26/2023 11:07:18 12/26/19 24 12/26/2023 US, obste tric, bioph ysica l profi le + non-s tress test No observ ation record ed. [email or web address] [place] [address], [place], [address], 12/26/2023 12:31:52 12/26/19 24 12/26/2023 US, obste tric, follo w-up No observ ation record ed. [address], [place], [address], 12/27/2023 10:34:58 12/28/19 24 12/28/2023 imagi ng/di agnos tic resul t No observ ation record ed. [facility] [address], [place], [address], 01/04/2024 10:55:06 01/02/20 24 01/02/2024 non-s tress test No observ ation record ed. [email or web address] [place] [address], [place], [address], 01/02/2024 12:08:40 01/02/20 24 01/02/2024 US, obste tric, bioph ysica l profi le + non-s tress test No observ ation record ed. [email or web address] [place] [address], [place], [address], 01/02/2024 18:27:37 01/03/20 24 01/02/2024 US, obste tric, bioph ysica l profi le + non-s tress test No observ ation record ed. [email or web address] [address], [place], [address], 01/03/2024 22:30:38 01/09/20 24 01/09/2024 non-s tress test No observ ation record ed. [email or web address] [place] [address], [place], [address], 01/09/2024 11:10:54 01/09/20 24 01/09/2024 US, obste tric, bioph ysica l profi le + non-s tress test No observ ation record ed. [email or web address] [place] [address], [place], [address], 01/09/2024 13:16:58 01/09/20 24 01/09/2024 US, obste tric, bioph ysica l profi le + non-s tress test No observ ation record ed. [email or web address] [address], [place], [address], 01/09/2024 21:53:15 Result Notes None recorded. Problems Name Problem SNOMED Code Status Onset Date Resolution Date Notes Provider Name and Address Organization Details Recorded Time Pregnanc y 94672660 Completed 202301/18/2024 Russell voss [facility] 4 12:48:19 Chronic hyperten jimmy in obstetri c context 4390671 Completed Procardi a XL 30 daily, bASA; baseline labs ordered 07/25; 32 week antenata l testing; inductio n 37 weeks LENY AUGUSTINE MD [address], [place], [address], [facility] 4 14:56:03 Prediabe carmen [id number] Completed A1c 5.9%, early 1h GCT LENY AUGUSTINE MD [address], [place], [address], [facility] 4 14:56:03 Prediabe carmen 746413138 Active A1c 5.9%, early 1h GCT LENY AUGUSTINE MD [address], [place], [address], [facility] 4 14:56:03 Chronic hyperten jimmy in obstetri c context 4688016 Active Procardi a XL 30 daily, bASA; baseline labs ordered 07/25; 32 week antenata l testing; inductio n 37 weeks LENY AUGUSTINE MD [address], [place], [address], [facility] 4 14:56:03 Gestatio nal diabetes mellitus 42065159 Completed 1 abnormal level checking bs x2wks- Ruled in GDM diet cont 10/04 - BS QID & serial growth LENY AUGUSTINE MD [address], [place], [address], [facility] 4 14:56:03 Mixed anxiety and depressi ve disorder 707800322 Active mago AUGUSTINE MD [address], [place], [address], [facility] 4 14:56:03 Mixed anxiety and depressi ve disorder 276117461 Completed mago AUGUSTINE MD [address], [place], [address], [facility] 4 14:56:03 Problem Notes None recorded. Procedures Surgical History Date Name Laterality Status Provider Name and Address Organization Details Recorded Time 06/21/19 25 IUD Removal completed LENY AUGUSTINE MD [address], [place], [address], [facility] 06/21/2024 15:14:51 06/21/19 25 IUD Insertion completed LENY AUGUSTINE MD [address], [place], [address], [place] [facility] 06/21/2024 15:19:31 04/05/20 24 IUD Insertion completed LENY AUGUSTINE MD [address], [place], [address], [facility] 04/05/2024 10:45:17 04/10/20 23 Hysteroscopy completed LENY AUGUSTINE MD [address], [place], [address], [facility] 04/10/2023 16:18:41 10/15/19 22 Date of Last Pap Smear completed Court Bass [facility] 06/07/2022 15:48:29 Imaging Results Imaging Date Name Status LastModified by Organiz ation Details LastModified Time 12/12/2023 US, obstetric, biophysical profile + non-stress test completed linda [place] [address], [place], [address], 12/12/2023 17:39:33 12/12/2023 US, obstetric, biophysical profile + non-stress test completed [email or web address] [address], [place], [address], 12/12/2023 12:26:11 12/12/2023 [facility]-stress test [email or web address] [place] [address], [place], [address], 12/12/2023 11:15:05 12/19/2023 US, obstetric, follow-up completed [email or web address] [place] [address], [place], [address], 12/19/2023 12:45:50 12/19/2023 US, obstetric, biophysical profile + non-stress test completed [email or web address] [place] [address], [place], [address], 12/19/2023 12:46:01 12/19/2023 non-stress test completed [email or web address] [place] [address], [place], [address], 12/19/2023 11:18:32 12/19/2023 US, obstetric, follow-up completed [email or web address] [address], [place], [address], 12/20/2023 07:28:28 12/26/2023 non-stress test completed [email or web address] [place] [address], [place], [address], 12/26/2023 11:07:18 12/26/2023 US, obstetric, biophysical profile + non-stress test completed [email or web address] [place] [address], [place], [address], 12/26/2023 12:31:52 12/26/2023 US, obstetric, follow-up completed [address], [place], [address], 12/27/2023 10:34:58 12/28/2023 imaging/diagnos tic result completed [facility] [address], [place], [address], 01/04/2024 10:55:06 01/02/2024 non-stress test completed [address] [facility] [address], [place], [address], 01/02/2024 12:08:40 01/02/2024 US, obstetric, biophysical profile + non-stress test completed [email or web address] [place] [address], [place], [address], 01/02/2024 18:27:37 01/02/2024 US, obstetric, biophysical profile + non-stress test completed [email or web address] [address], [place], [address], 01/03/2024 22:30:38 01/09/2024 non-stress test completed [email or web address] [place] [address], [place], [address], 01/09/2024 11:10:54 01/09/2024 US, obstetric, biophysical profile + non-stress test completed [email or web address] [place] [address], [place], [address], 01/09/2024 13:16:58 01/09/2024 US, obstetric, biophysical profile + non-stress test completed [email or web address] [address], [place], [address], 01/09/2024 21:53:15 Procedure Notes None recorded. Medical Equipment None Reported. Allergies Allergen ID Allergen Name Allergen Category Reaction Reaction Severity Criticality Documentation Date Start Date Code Code System Note Provider Name and Address Organization Details Recorded Time pineapple allergeni c extract food,medi cation Not available Not available Not available 06/07/[address], [facility] 3 15:48:28 cat dander environme nt Not available Not available Not available 06/07/[address] v[address] [facility] 3 15:48:28 Medications Name Sig Start [...] Updated DateTime 01/09/2024 170.18 cm 33.4 kg/m2 14552.17 g 130 mm[Hg] 78 mm[Hg] [facility] 4 10:59:30 Date Recorded Body height Body mass index (BMI) Body weight Systolic blood pressure Diastolic blood pressure Provider Name and Address Organization Details Last Updated DateTime 02/19/2024 170.18 cm 31.2 kg/m2 33299.88 g 116 mm[Hg] 77 mm[Hg] [facility] 4 14:31:43 Date Recorded Body height Body mass index (BMI) Body weight Systolic blood pressure Diastolic blood pressure Provider Name and Address Organization Details Last Updated DateTime 04/05/2024 170.18 cm 30.7 kg/m2 76720.1 g 131 mm[Hg] 79 mm[Hg] [facility] 4 10:20:44 Date Recorded Body height Body mass index (BMI) Body weight Systolic blood pressure Diastolic blood pressure Provider Name and Address Organization Details Last Updated DateTime 06/10/2024 170.18 cm 30.7 kg/m2 72820.1 g 127 mm[Hg] 80 mm[Hg] Andressa Tierney [facility] 16:00:52 Date Recorded Body height Body mass index (BMI) Body weight Systolic blood pressure Diastolic blood pressure Provider Name and Address Organization Details Last Updated DateTime 06/21/2024 170.18 cm 31 kg/m2 92172.29 g 123 mm[Hg] 76 mm[Hg] Andressa Tierney [facility] 14:44:27 Social History Question Answer Notes LastModified by Organizat ion Details LastModified Time Tobacco Smoking Status [facility] 02/06/2023 10:19:11 What Is Your Level Of Alcohol Consumption? None [email or web address] Information not available 06/07/2022 If You Are , What Was Your Level Of Alcohol Consumption Prior To ? Occasional Information not available 02/06/2023 How Many Years Have You Consumed Alcohol? 9 [email or web address] Information not available 06/07/2022 Are You Blind Or Do You Have Difficulty Seeing? No [email or web address] Information not available 06/07/2022 What Is Your Level Of Caffeine Consumption? Moderate [email or web address] Information not available 06/07/2022 How Much Tobacco Do You Chew? None [email or web address] Information not available 06/07/2022 In The 14 Days Before Symptom Onset, Have You Had Close Contact With A Laboratory-confir med COVID-19 While That Case Was Ill? No [email or web address] Information not available 06/07/2022 In The 14 Days Before Symptom Onset, Have You Had Close Contact With A Person Who Is Under Investigation For COVID-19 While That Person Was Ill? No [email or web address] Information not available 06/07/2022 Have You Been To An Area Known To Be High Risk For COVID-19? No [email or web address] Information not available 06/07/2022 Are You Deaf Or Do You Have Serious Difficulty Hearing? No [email or web address] Information not available 06/07/2022 What Type Of Diet Are You Following? REGULAR [email or web address] Information not available 06/07/2022 Do You Or Have You Ever Used E-cigarettes Or Vape? Former User Of Electronic Cigarettes Information not available 02/06/2023 What Is The Highest Grade Or Level Of School You Have Completed Or The Highest Degree You Have Received? OV21608-8 Information not available 02/06/2023 What Is Your Occupation? [employer]. Information not available 02/06/2023 Are There Any Guns Present In Your Home? No [email or web address] Information not available 06/07/2022 Do You Use Protection During Sex? No [email or web address] Information not available 06/07/2022 Do You Use Your Seat Belt Or Car Seat Routinely? Yes [email or web address] Information not available 06/07/2022 Do You Have Smoke And Carbon Monoxide Detectors In Your Home? Yes [email or web address] Information not available 06/07/2022 How Much Tobacco Do You Smoke? No [email or web address] Information not available 06/07/2022 Do You Feel Stressed (tense, Restless, Nervous, Or Anxious, Or Unable To Sleep At Night)? PI84189-2 [email or web address] Information not available 06/07/2022 Do You Use Any Illicit Or Recreational Drugs? No [email or web address] Information not available 06/07/2022 Do You Use Sunscreen Routinely? No [email or web address] Information not available 06/07/2022 Has Tobacco Cessation Counseling Been Provided? No Information not available 02/06/2023 Have You Used IV Drugs? No [email or web address] Information not available 06/07/2022 Do You Or Have You Ever Used Any Other Forms Of Tobacco Or Nicotine? Yes Information not available 02/06/2023 Sex: Female Functional Status Question Answer Note LastModified by Organizat ion Details LastModified Time Do you have difficulty walking or climbing stairs? No Information not available 02/06/2023 Are you able to walk? YESWOREST [email or web address] Information not available 06/07/2022 Are you able to care for yourself? Yes Information not available 02/06/2023 Do you have difficulty dressing or bathing? No Information not available 02/06/2023 What is your exercise level? Occasional [email or web address] Information not available 06/07/2022 Mental Status None recorded. Family History Relationship Description Onset Age of this Age Resolved Age Notes LastModified by Organization Details LastModified Time Maternal Aunt Disorder of thyroid gland [email or web address] Not available 10/23 14:34:28 Maternal Aunt Anxiety disorder [email or web address] Not available 10/23 14:34:28 Paternal Grandfather Hypertensive disorder [email or web address] Not available 10/23 14:34:28 Paternal Grandfather Heart disease [email or web address] Not available 06/07 15:48:28 Paternal Grandfather Diabetes mellitus [email or web address] Not available 06/07 15:54:21 Mother Asthma [email or web address] Not available 06/07/2022 15:48:28 Mother Anxiety disorder [email or web address] Not available 06/07 15:48:28 Mother Endometrial carcinoma [email or web address] Not available 10/23 14:34:28 Mother Anemia [email or web address] Not available 06/07/2022 15:48:28 Mother Depressive disorder [email or web address] Not available 06/07 15:48:28 Mother Osteoporosis [email or web address] Not tim ilable 06/07/2022 15:48:28 Mother Disorder of thyroid gland vschroedter Not available 10/23 14:34:28 Mother Hypertensive disorder [email or web address] Not available 10/23 14:34:28 Mother Polycystic ovary syndrome [email or web address] Not available 2024 15:54:44 Mother Malignant tumor of ovary vschroedter Not available 10/23 14:34:28 Father Depressive disorder [email or web address] Not available 06/07 15:48:28 Father Hypertensive disorder [email or web address] Not available 10/23 14:34:28 Father Diabetes mellitus [email or web address] Not available 06/07 15:48:28 Father Anxiety disorder [email or web address] Not available 10/23 14:34:28 Paternal Aunt Disorder of thyroid gland Not available 06/07 15:48:28 Paternal Aunt Depressive disorder [email or web address] Not available 10/23 14:34:28 Paternal Aunt Hypertensive disorder [email or web address] Not available 10/23 14:34:28 Paternal Aunt Heart disease [email or web address] Not available 06/07 15:48:28 Paternal Aunt Diabetes mellitus [email or web address] Not available 06/07 15:48:28 Paternal Aunt Anxiety disorder [email or web address] Not available 10/23 14:34:28 Maternal Grandfather Depressive disorder [email or web address] Not available 06/07 15:48:28 Paternal Grandmother Hypertensive disorder [email or web address] Not available 10/23 14:34:28 Paternal Grandmother Heart disease [email or web address] Not available 06/07 15:53:08 Paternal Grandmother Diabetes [...] Maternal Grandmother Malignant tumor of pancreas 63 [email or web address] Not available 2024 15:54:44 Medical History Condition [...] SNOMED-CT Code Diagnosis ICD10 Code Diagnosis Note [id number] Christal Ireland [place] [address] [address] 06/07/2022 15:24:34 06/08/2022 12:20:47 Miscarriage 51741425 O03.9 Discussed following hcg until negative. Bleeding precaution s given. Discussed future pregnancie s. Offered grief resources. [id number] LUCILLE Zuleta [place] [address] [address] 11/16/2022 14:19:11 11/16/2022 16:15:28 Depressive disorder 92761172 F32.A We discussed her depression symptoms in-depth. Recommend immediate evaluation . Offered transport to ED through EMS, declined by patient. Waited with patient while she called her partner to come to the office. discussed with patient and her partner the need for immediate evaluation , they are agreeable. Her partner will take her to [facility] urgent care now for evaluation . address [...] review of plan of care. Suicidal thoughts 140479 6 R45.851 Irregular periods 596044 07 N92.6 [id number] LENY AUGUSTINE MD [place] [address],[place] [address] 02/06/2023 10:01:40 02/07/2023 08:49:58 History of recurrent miscarriage - not 526438471 N96 - hx of 2 spontaneou s miscarriag es, no prior pregnancie s- denies abnormal menses, uterine or ovarian surgery, no hx of STDs- discussed causes of RPL including uterine anomalies, polyps, fibroids, abnormal thyroid function, diabetes, APLS, and uncontroll ed HTN- labs as below- plan for SIS when able in office (catheters on back order) Essential hypertension 25889186 I10 - never on meds- patient to send in log of BPs for 1 week, then will likely start medication s [id number] Jacinda Hanna [place] [address],[place] [address] 03/28/2023 09:31:22 03/28/2023 11:20:31 Recurrent miscarriage 296000461 N96 [id number] LENY AUGUSTINE MD [place] [address],[place] [address] 03/31/2023 15:51:23 03/31/2023 16:50:15 Recurrent miscarriage 886453159 N96 - TSH, PRL, APLS labs all wnl- A1c slightly elevated- Pelvic US with possible polyp at fundus, recommend HSC and possible polypectom y for evaluation - Will schedule in office- Karyotype ordered, recommend paternal karyotype if maternal normal Essential hypertension 70836547 I10 - never on meds- BP elevated again today, recommend starting medication s, patient agreeable- Pt to monitor BP at home, educated on signs of hypotensio n- Prediabetes 197713165 R7 3.03 - A1c 5.9%- discussed lifestyle modificati ons [id number] LENY AUGUSTINE MD [place] [address],[place] [address] 04/10/2023 14:50:13 04/10/2023 16:39:54 Recurrent miscarriage 345777734 N96 - karyotype collected, will follow up on results as available Female infertility 58450 08 N97.9 [id number] [facility] [address],[place] [address] 06/12/2023 17:34:22 06/13/2023 08:47:30 care: poor obstetric history 954427859 O09.291 O36.80X0 Z3A.01 [id number] [facility] [address],[place] [address] 06/29/2023 16:49:20 06/29/2023 17:20:48 [id number] LENY AUGUSTINE MD [place] [address],[place] [address] 07/03/2023 16:08:04 07/04/2023 08:13:15 Nausea and vomiting 02860869 R11.2 test positive 492359811 Z32.01 1. Exam today within normal limits.2. Ultrasound today confirms GA and viability. EDC . GC/Clamydi a testing done: will f/u as indicated. 4. ACOG guidelines and plan of care for reviewed with patient. All questions answered.5 . Return to office at 12 weeks for new OB visit6. Will need new OB labs at next visit.7. Genetic screening: declines Prediabetes 564037372 R7 3.03 - A1c 5.9%- discussed lifestyle modificati ons Essential hypertension 46653201 I10 - controlled on Procardia XL 30mg daily- baseline labs with new OB visit Mixed anxi ety and depressive disorder 300576899 F41.8 - continue escitalopr am [id number] [facility] [address],[place] [address] 07/04/2023 11:49:57 07/04/2023 12:34:48 Threatened miscarriage 36805812 O20.0 O09.291 Z3A.09 [id number] [facility] [address],[place] [address] 07/25/2023 15:44:52 07/25/2023 16:58:15 screening 017598308 Z36.82 Z3A.12 [id number] LENY AUGUSTINE MD [place] [address],[place] [address] 07/26/2023 10:03:15 07/26/2023 15:47:20 Gestation period, 12 weeks 25697673 Z3A.12 Chronic hy pertension complicating AND/OR reason for care during 84030024 O16.9 Chronic hy pertension in obstetric context 8628959 O16.9 Prediabetes 812838082 R7 3.03 - A1c 5.9%- discussed lifestyle modificati ons [id number] LENY AUGUSTINE MD [place] [address],[place] [address] 08/29/2023 16:19:17 08/30/2023 11:08:45 Chronic hypertension in obstetric context 7451454 O16.9 Prediabetes 288594782 R7 3.03 - A1c 5.9%- discussed lifestyle modificati ons Gestation period, 17 weeks 14552743 Z3A.17 [id number] [facility] [address],[place] [address] 09/07/2023 14:23:14 09/08/2023 12:43:26 [id number] Tawana [facility] [address],[place] [address] 09/25/2023 09:30:20 09/25/2023 10:46:27 screening for malformation 869265611 Z36.3 Z3A.21 [id number] LENY AUGUSTINE MD [place] [address],[place] [address] 09/28/2023 09:27:36 09/28/2023 11:40:42 Prediabetes 886528678 R73.03 - A1c 5.9%- discussed lifestyle modificati ons Chronic hy pertension complicating AND/OR reason for care during 61673870 O16.9 Gestation period, 22 weeks 17167964 Z3A.22 [id number] [facility] [address],[place] [address] 10/09/2023 10:43:21 10/09/2023 11:44:03 Gestational diabetes mellitus 05605415 O24.410 Pt here for diet teaching. Went [...] and pt verbalized understand ing. KIMBERLY moser [id number] [facility] [address] [address] 10/27/2023 09:27:39 10/27/2023 10:18:14 Gestational diabetes mellitus 26919738 O24.410 Z36.2 Z3A.26 Pt here for diet [...] and pt verbalized understand ing. KIMBERLY moser [id number] LENY AGUUSTINE MD [place] [address],[place] [address] 10/27/2023 09:27:59 10/29/2023 15:01:16 Gestational diabetes mellitus class A1 07370141 O24.410 Gestation period, 26 weeks 16469028 Z3A.26 Chronic hy pertension in obstetric context 7640720 O16.9 Mixed anxi ety and depressive disorder 953243931 F41.8 - continue escitalopr am [id number] LENY AUGUSTINE MD [place] [address],[place] [address] 11/10/2023 14:00:08 11/20/2023 16:17:46 Chronic hypertension in obstetric context 0101149 O16.9 Prediabetes 902933973 R7 3.03 - A1c 5.9%- discussed lifestyle modificati ons Gestationa l diabetes mellitus 48614759 O24.410 Mixed anxi ety and depressive disorder 348932494 F41.8 - continue escitalopr am [id number] [facility] [address],[place] [address] 11/24/2023 15:31:51 11/24/2023 16:07:55 Gestational diabetes mellitus 59392671 O24.410 Z3A.30 Pt here for diet teaching. [...] and pt verbalized understand ing. KIMBERLY moser [id number] LENY AUGUSTINE MD [facility] [address],[place] [address] 11/24/2023 15:36:33 11/24/2023 16:45:37 screening 222549542 Z36.89 Gestationa l diabetes mellitus class A1 77826197 O24.410 Gestation period, 30 weeks 16111221 Z3A.30 Chronic hy pertension complicating AND/OR reason for care during 30985684 O16.9 [id number] Jacinda Hanna [facility] [address],[place] [address] 12/12/2023 09:48:26 12/12/2023 10:25:48 Chronic hypertension complicating AND/OR reason for care during 60113752 O16.3 O24.410 Z3A.32 [id number] Lou Shah [facility] [address],[place] [address] 12/12/2023 09:49:05 12/12/2023 11:15:08 Chronic hypertension complicating AND/OR reason for care during 85330030 O16.9 [id number] LENY AUGUSTINE MD [facility] [address],[place] [address] 12/12/2023 09:49:22 12/12/2023 11:44:09 Chronic hypertension in obstetric context 2321229 O16.9 - continue Procardia XL daily- asymptomat ic- BP well controlled Prediabetes 346219865 R7 3.03 - A1c 5.9%- discussed lifestyle modificati ons Mixed anxi ety and depressive disorder 186708251 F41.8 - continue escitalopr am Gestationa l diabetes mellitus class A1 17160929 O24.410 Gestation period, 32 weeks 2030709 Z3A.32 [id number] Jacinda Hanna [facility] [address],[place] [address] 12/19/2023 09:52:24 12/19/2023 10:38:25 Gestational diabetes mellitus 71084379 O24.410 O16.3 Z3A.33 Pt here for diet [...] and pt verbalized understand ing. KIMBERLY moser [id number] Lou Shah [facility] [address],[place] [address] 12/19/2023 09:54:27 12/19/2023 12:12:15 Chronic hypertension complicating AND/OR reason for care during 45668779 O16.9 [id number] LENY AUGUSTINE MD [facility] [address],[place] [address] 12/19/2023 09:55:23 12/19/2023 23:11:20 [id number] LENY AUGUSTINE MD [facility] [address],[place] [address] 12/22/2023 14:18:17 12/22/2023 15:17:39 Chronic hypertension in obstetric context 9142921 O16.9 - continue Procardia XL daily- asymptomat ic- BP well controlled Mixed anxi ety and depressive disorder 296481938 F41.8 - continue escitalopr am Prediabetes 340934152 R7 3.03 - A1c 5.9%- discussed lifestyle modificati ons Gestationa l diabetes mellitus 07215005 O24.410 Gestation period, 34 weeks 68949642 Z3A.34 [id number] Lou Shah [facility] [address],[place] [address] 12/26/2023 09:52:26 12/26/2023 11:14:52 Chronic hypertension complicating AND/OR reason for care during 27833539 O16.9 [id number] Tawana Russell [facility] [address],[place] [address] 12/26/2023 09:52:52 12/26/2023 11:31:01 Gestational diabetes mellitus 52102332 O24.410 O10.013 Z3A.34 Pt here for diet [...] and pt verbalized understand ing. KIMBERLY moser [id number] LENY AUGUSTINE MD [facility] [address],[place] [address] 12/26/2023 09:53:17 12/26/2023 11:51:13 Chronic hypertension in obstetric context 2357735 O16.9 - continue Procardia XL daily- asymptomat ic- BP well controlled Mixed anxi ety and depressive disorder 411192832 F41.8 - continue escitalopr am Gestationa l diabetes mellitus 29519003 O24.410 - continue glucose checks Gestation period, 34 weeks 45618705 Z3A.34 [id number] Lou Shah [facility] [address],[place] [address] 01/02/2024 09:51:40 01/02/2024 13:32:26 Chronic hypertension complicating AND/OR reason for care during 32907491 O16.9 [id number] Tawana Moss [facility] [address],[place] [address] 01/02/2024 09:52:21 01/02/2024 13:34:38 Gestational diabetes mellitus 75800549 O24.410 O10.013 Z3A.35 Pt here for diet [...] and pt verbalized understand ing. KIMBERLY moser [id number] LENY AUGUSTINE MD [facility] [address],[place] [address] 01/02/2024 09:52:36 01/04/2024 12:22:48 Chronic hypertension complicating AND/OR reason for care during 73374111 O16.9 Gestationa l diabetes mellitus 62434553 O24.410 - continue glucose checks Mixed anxi ety and depressive disorder 286059780 F41.8 - continue escitalopr am Gestation period, 35 weeks 36135030 Z3A.35 [id number] Tawana Russell [facility] [address],[place] [address] 01/09/2024 09:53:08 01/09/2024 10:39:42 Gestational diabetes mellitus 68816483 O24.410 O10.013 Z3A.36 Pt here for diet [...] and pt verbalized understand ing. KIMBERLY moser [id number] Lou Shah [facility] [address],[place] [address] 01/09/2024 09:53:35 01/09/2024 11:13:17 Chronic hypertension complicating AND/OR reason for care during 31516495 O16.9 [id number] LENY AUGUSTINE MD [facility] [address],[place] [address] 01/09/2024 09:53:51 01/09/2024 11:44:51 Chronic hypertension in obstetric context 1153663 O16.9 - continue Procardia XL daily- asymptomat ic- BP well controlled Mixed anxi ety and depressive disorder 321684849 F41.8 - continue escitalopr am Gestationa l diabetes mellitus class A1 36028859 O24.410 Gestation period, 36 weeks 23555218 Z3A.36 [id number] LENY AUGUSTINE MD [facility] [address],[place] [address] 02/19/2024 14:22:47 02/19/2024 15:09:42 state 28054805 Z39.2 S/p 4 weeks ago here today for a visit.1. Patient recovering well2. Plans to continue combo feeding3. Interested in condoms for contracept ion at this time. Risks, benefits, and alternativ es reviewed with the patient4. Patient instructed to follow up in 6 months for well woman exam unless need arises prior [id number] LENY AUGUSTINE MD [facility] [address],[place] [address] 04/05/2024 09:56:03 04/05/2024 16:03:31 Insertion of intrauterine contraceptive device 38190341 Z30.430 - Mirena IUD placed without issue- due for removal 03/2032- rtc 4 weeks for string check Screening procedure 2012 5006 Z13.9 Contraception care 13083 5005 Z30.40 [id number] LENY AUGUSTINE MD [facility] [address],[place] [address] 06/10/2024 15:54:22 06/13/2024 16:14:47 IUD check 384060511 Z30.431 - Mirena IUD placed 03/2024, however unhappy with mood symptoms- discussed options including replacemen t with Copper IUD; discussed menses changes that can occur with copper IUD- will return for removal and placement of copper iUD [id number] LENY AUGUSTINE MD [facility] [address],[place] [address] 06/21/2024 14:23:43 06/21/2024 15:25:12 Contraception care 054213645 Z30.40 - Mirena removed easily and intact; [...] Moran Member ID Guarantor Name 01/09/2024 1 [facility] - CANDY Goodwin [id number] Joe Goodwin 02/19/2024 1 [facility] - CANDY Goodwin [id number] Joe Goodwin 04/05/2024 1 [facility] - CANDY Goodwin [id number] Joe Goodwin 06/10/2024 1 [facility] - CANDY Goodwin [id number] Joe Goodwin 06/21/2024 1 [facility] - CANDY Goodwin [id number] Joe Goodwin Notes Date Note Type Note [...] time. LENY AUGUSTINE MD [address], [place], [address], [facility] 02/19/2024 15:09:13 04/05/2024 text/html Patient presents for IUD insertion. R/b/a discussed with patient. LENY AUGUSTINE MD [address], [place], [address], [facility] 04/05/2024 15:55:28 06/10/2024 text/html Presents today f or IUD check. Had mirena IUD placed 04/05/24. Has had increased mood symptoms since insertion. Patient has not had any cramping or pain. She is interested in switching to Paraguard IUD. LENY AUGUSTINE MD [address], [place], [address], [facility] 06/12/2024 23:54:58 06/21/2024 text/html Patient presents for removal of Mirena IUD and insertion of Paraguard IUD. Risks, benefits and alternatives discussed with patient who voices understanding. LENY AUGUSTINE MD [address], [place], [address], [facility] 06/21/2024 15:20:49 OBGyn Episode Ob Episode Information Episode Created Date Number of Fetuses Patient Bloodtype Patient rh Status Prepregnancy Weight lbs Domestic Partner Domestic Partner Phone Father Name Director Of Teaching And Learning Status 06/07/19 23 1 CLOSED Fetus Data First Name Last Name Admitted to NICU Weight (g) Sex Living Outcome Pediatric Complications Fetus ID Race Codes Race Delivery Type , Spontane ous [id number] Naresh Calculation Initial Naresh Date Initial Exam [...] Domestic Partner Domestic Partner Phone Father Name Director Of Teaching And Learning Status 08/05/19 23 1 CLOSED Fetus Data First Name Last Name Admitted to NICU Weight (g) Sex Living Outcome Pediatric Complications Fetus ID Race Codes Race Delivery Type [id number] Naresh Calculation Initial Naresh Date Initial Exam [...] Domestic Partner Domestic Partner Phone Father Name Director Of Teaching And Learning Status 07/26/19 24 1 219 CLOSED Fetus Data First Name Last Name Admitted to NICU Weight (g) Sex Living Outcome Pediatric Complications Fetus ID Race Codes Race Delivery Type 2891.64 9 M true Full Term [id number] 10076 Vaginal Delivery Problems Problem Notes Problem Name Start Date End Date Resolution Snomed Code Not e Chronic hypertension in obstetric context 2851352 Procardia XL 30 daily, bASA; baseline labs ordered 07/25; 32 week testing; induction 37 weeks Prediabetes 585365871 A1c 5.9% , early 1h GCT Mixed anxiety and depressive disorder 338096093 lexapro Gestational diabetes mellitus 05353958 1 abnormal leve l checking bs [id number] [...] Date Ultra Sound Latest Days Gestation 0 [email or web address] 08/29/2023 02/01/20 24 0 Pre-anders Flowsheet Flowsheet Date 07/26/2023 Strange Score Blood Edema Fundus Height Fundus Units Glucose Ketones Leukocytes Nitrite Labor Signs Protein Cervic Dilation Cervic Effacement Cervic Station 12 Type Weight in lbs Pre/Post Dialysis Refused Weight 221.963384533696 BP Diastolic BP Location Tested BP Systolic [...] Weight in lbs Pre/Post Dialysis Refused Weight 223.962635019308 BP Diastolic BP Location Tested BP Systolic [...] Weight in lbs Pre/Post Dialysis Refused Weight 225.714136601173 BP Diastolic BP Location Tested BP Systolic [...] Weight in lbs Pre/Post Dialysis Refused Weight 218.795260139721 BP Diastolic BP Location Tested BP Systolic [...] Weight in lbs Pre/Post Dialysis Refused Weight 219.072826054236 BP Diastolic BP Location Tested BP Systolic [...] Weight in lbs Pre/Post Dialysis Refused Weight 218.085828367008 BP Diastolic BP Location Tested BP Systolic [...] Weight in lbs Pre/Post Dialysis Refused Weight 216.330443377324 BP Diastolic BP Location Tested BP Systolic [...] Weight in lbs Pre/Post Dialysis Refused Weight 215.930834067351 BP Diastolic BP Location Tested BP Systolic BP Type 80 129 Fetus Heart Rate Present Fetus Movement Comments Flowsheet Date 12/22/2023 Strange Score Blood Edema Fundus Height Fundus Units Glucose Ketones Leukocytes Nitrite Labor Signs Protein Cervic Dilation Cervic Effacement Cervic Station Type Weight in lbs Pre/Post Dialysis Refused Weight 217.116313109836 BP Diastolic BP Location Tested BP Systolic [...] Weight in lbs Pre/Post Dialysis Refused Weight 214.354203449567 BP Diastolic BP Location Tested BP Systolic [...] Type Weight in lbs Pre/Post Dialysis Refused 214.389668467484 BP Diastolic BP Location Tested BP Systolic [...] Weight in lbs Pre/Post Dialysis Refused Weight 213.103150652630 BP Diastolic BP Location Tested BP Systolic BP Type 78 L arm 130 sitting Fetus Heart Rate Present A 140 Fetus Movement A Yes Comments Patient c/o of Meriwether Curiel , light cramping and swelling in [...] Estim ated Date of Delivery false Thalassemia (Namibian, Tamazight, Mediterranean, Or Background): MCV < 80 false Neural Tube Defect (Meningomyelocele, Spina Bifi da, Or Anencephaly) false Congenital Heart Defect false Down Syndrome false Rony-Sachs (eg, Taoist, Cajun, Moldovan-Barrow) f alse Hellen Disease false Sickle Cell [...]
--- OUTSIDE RECORDS SUMMARY | 2024-08-09 00:29 | XMS_ITS | Clinical Summary ---
Author Organization [facility] [employer] Address [address] [place] [address] Care Team Providers Care Credit Clerk Name Role Phone Unknown, Provider Primary Care Provider Unavaila ble Source Comments [facility] [employer],non-owned Affiliates and Associated Physician Practices is amultiple site organization consisting of ambulatory clinics and hospital sitesin [place], [place], [place] and [place]. This disclosure is being madepursuant to the Care Everywhere program and may not contain all information available regarding this patient. Last updated 18.frintit [employer] Allergies No known active allergies Medications * [...] this topic Insurance CIGNA CIGNA Care Teams Credit Clerk Relationship Specialty Start Date End Date Unknown, Provider PCP - General 11/16/22
[2024-08-09] MEDS: LACTATED RINGERS 1,000 ML 30 ML IV CONT ×2 (11:00→13:09)
[2024-08-09] MEDS: ACETAMINOPHEN 500 MG TABLET 1000 MG PO (11:00)
[2024-08-09] MEDS: KETOROLAC 15 MG/ML VIAL (*BKC) IV PUSH (11:00)
--- NOTE | 2024-08-09 11:42 | WPDHPUPDATE1 ---
History and Physical Update Update Date/Time: 08/09/24 11:42 History and Physical has been reviewed, including an updated exam of the patient. There are NO changes in the patient's condition. Risks, benefits, and alternatives have been discussed and questions answered. Patient agrees to proceed with procedure.
[2024-08-09] MEDS: BUPIVACAINE/EPINEPHRINE 0.5% 10 ML VIAL 30 ML INFILTRATE (11:59)
--- NOTE | 2024-08-09 12:15 | WPDANESEPPF ---
Anes - Initial Pre Proc Eval Procedure: Operation Date: 08/09/24 12:00 Proposed Procedures p Laparoscopic Cholecystectomy, Possible Open - Humberto Paniagua DO Date/Time: 08/09/24 12:15 Surgeon: Humberto Paniagua DO Pre Op Diagnosis: symptomatic cholelithiasis Patient Data Age: 33 Gender: F Height: 1.7 m Weight: 89.6 kg Last Vital Signs Temp 36.5 C 08/09/24 11:00 Pulse 76 08/09/24 11:00 Resp 14 08/09/24 11:00 BP 131/84 08/09/24 11:00 Pulse Ox 100 08/09/24 11:00 O2 Del Method Room Air 08/09/24 11:00 Allergies Allergy/AdvReac Type Severity Reaction Status Date / Time nickel Allergy Mild Itching Verified 08/09/24 11:01 oseltamivir (From Tamiflu) Allergy Mild Vomiting Verified 08/09/24 11:01 sertraline (From Zoloft) Allergy Mild Irritable Verified 08/09/24 11:01 Home Medications ?Medication ?Instructions ?Recorded ?Confirmed ?Type escitalopram oxalate 20 mg tablet 20 mg PO DAILY 06/26/19 08/01/24 History (Lexapro) nifedipine 30 mg tablet,extended 30 mg PO DAILY 12/07/23 08/01/24 History release 24 hr prenat.vits,malaika,nwv-fmxi-brdfq 1 tablet PO DAILY 01/06/24 08/01/24 History famotidine 20 mg tablet (Acid-Pep) 20 mg PO BID 08/01/24 08/01/24 History Patient hx anesthesia problems: none Family hx anesthesia problems: none Results Review: All pre-operative results and documents have been reviewed as part of the pre-operative evaluation. [facility] Past Medical History Medical History (Updated 07/18/24 @ 15:48 by Ambreen Chawla CMA) Hypertension Anxiety Anemia Family History Family History (Updated 07/18/24 @ 15:19 by Hiram Felton MA) Mother Family history of thalassemia Family history of migraine headaches Asthma Hypertension Depression Cerebrovascular accident Thyroid disorder Father Family history of migraine headaches Diabetes mellitus Hypertension Depression Grandparent Cancer Diabetes mellitus Hypertension Depression Heart disease Social History Social History Smoking status: Never smoker Second hand tobacco smoke exposure: No Alcohol intake: former Substance use: former Substance use type: marijuana Do You Feel Safe in your Home?: Yes Lack of Transportation: No Lack of Food: Never True Current Housing: I Have Housing Concerned About Future Housing: No Difficulty Paying Gas/Electric Bills: No Difficulty Paying for Meds: No Currently Unemployed: No Education: Trade/Vocational Certificate Difficulty w/ Childcare or Family Care: No Living arrangements: with family Spiritual care concerns: No Anes - Eval Final PreProcedure Day of Procedure 08/09/24 12:15 Patient weight: obese Heart: regular rate and rhythm Lungs: clear to auscultation Airway: Mallampati scale class II Neurological: alert and oriented Last oral intake: >/= 8 hours ASA classification: II Emergent: no Anesthetic plan: proceed Anesthesia type and monitoring: general ETT Results Review: All pre-operative results and documents have been reviewed as part of the pre-operative evaluation. Informed Consent: The patient's anesthetic plan and its attendant risks and benefits were discussed with the patient/family/POA. Questions were solicited and answers provided to the satisfaction of the patient/family/POA.
--- NOTE | 2024-08-09 13:07 | P.OP_ITS ---
Procedure Note - Detailed Date of Procedure 08/09/24 Pre-op Diagnosis symptomatic cholelithiasis Post-op Diagnosis Same Procedure Performed Laparoscopic cholecystectomy Surgeon Humberto Paniagua, DO Anesthesia General and Local (0.5% bupivacaine) Indications This is a 33-year-old woman who presented with intermittent right upper quadrant pain after eating. She had been experiencing pains for the past couple months. She had an outpatient ultrasound which showed evidence of cholelithiasis. Discussions were made with the patient about treatment options and decision was made to proceed with laparoscopic cholecystectomy, possible open. Findings Laparoscopic cholecystectomy was performed. The gallbladder wall appeared normal and there were no signs of pericholecystic adhesions. The cystic duct appeared normal in size. There were a couple small stones within the gallbladder. No other intra-abdominal abnormalities were noted. The gallbladder was removed and sent to the lab for pathology. Description of Procedure Procedure as well as risks, benefits, and alternatives were discussed with patient. Written consent was obtained and placed in chart prior to procedure. The patient was brought back to surgical suite. Patient was placed in supine position on operating table. Time-out was done to confirm patient and procedure. Patient was then intubated by the anesthesia department. Abdomen was prepped and draped in sterile fashion using chlorhexidine prep. 0.5% bupivacaine with epinephrine was infiltrated at each site of incision. A 5 millimeter incision was made near the umbilicus, and a 5 millimeter Optiview trocar was advanced through the abdominal layers under direct visualization. Once inside the abdominal cavity, carbon dioxide was insufflated to create a pneumoperitoneum. The camera was inserted and the abdomen was inspected. No immediate abnormalities were identified. The patient was placed in reverse Trendelenburg position and rotated slightly to the left. An 11 millimeter incision was made in the subxiphoid region, and an 11 millimeter trocar was inserted under direct visualization. Two 5 millimeter incisions were made in the right upper quadrant, and two 5 millimeter trocars were inserted under direct visualization. The gallbladder was identified and grasped at the fundus and retracted superiorly. It was then grasped at the infundibulum retracted laterally. Careful dissection around the neck of the gallbladder was performed using blunt dissection with a [place] grasper and hook electrocautery. The cystic duct was identified, and a window was created behind it. The cystic artery was also identified and a window was created behind it. The critical view of safety was identified, visualizing the cystic duct running directly into the neck of the gallbladder, and the cystic artery running directly into the wall of the gallbladder. A 5 millimeter clip community service coordinator was then used to place 2 clips proximally and 1 clip distally on both the cystic duct and cystic artery. They were then both transected using endoscopic scissors. Once safely away from the mary jo hepatitis, the gallbladder was dissected free from the liver bed using hook electrocautery. Hemostasis was achieved along the way. The gallbladder was removed completely and then removed through the subxiphoid port. The liver bed was then inspected. Hemostasis appeared adequate, and our clips appeared secure. The area was gently irrigated with sterile saline. No other abnormalities were seen. The patient was flattened out in bed, and 1 final inspection was made around the abdominal cavity. The subxiphoid port was removed, and a Jaquan Rama cone was used to approximate the fascia with an 0-Vicryl simple interrupted suture. The remaining ports were then removed under direct visualization, the camera was removed, and the pneumoperitoneum was released. The skin of the incisions was approximated using 4-0 Monocryl subcuticular sutures. Exofin glue was applied on top. The patient was then awakened from anesthesia, extubated, and transferred to recovery. Estimated Blood Loss 5 Pathology Yes (Gallbladder) Complications No immediate complications Condition Stable Disposition Same day [facility] Billing Surgery - Charge Forward: Surgery Billing
[2024-08-09] MEDS: HYDROmorphone HCL INJ (*CRX) 1 MG/ML SYR 0.5 MG IV PUSH (13:50)
[2024-08-09] MEDS: oxyCODONE HCL (*CRX) 5 MG TAB IR PO (14:32)
== END 2024-08-09 15:09 | disposition home or self-care (01) ==
PROVIDERS: PCP Internal Medicine; Visit Provider Surgery
PROC: 0FT44ZZ Resection of Gallbladder, Percutaneous Endoscopic Approach (ICD-10-PCS; CPT 47562; principal; 2024-08-09 12:00)
DX: K80.20 Calculus of gallbladder without cholecystitis without obstruction (principal); I10 Essential (primary) hypertension; D64.9 Anemia, unspecified; F41.9 Anxiety disorder, unspecified; E66.9 Obesity, unspecified; Z68.30 Body mass index [BMI] 30.0-30.9, adult; Z80.9 Family history of malignant neoplasm, unspecified; Z82.49 Family history of ischemic heart disease and other diseases of the circulatory system
CPT/HCPCS: 47562; 88304; A9270; J0690; J1100; J1171; J1885; J2003; J2250; J2405; J2704; J3010; J7030; J7120